=== PATIENT | male | born 1950 | race Caucasian/White ===

== ENCOUNTER 2016-11-02 22:28 | Observation (INO) ==
[2016-11-02] MEDS ORDERED: THIAMINE IVP STA (22:57)
[2016-11-02 23:22] LABS: BASOPHILS # (AUTO) 0.1 K/uL (0-0.2); BASOPHILS % (AUTO) 1.1 % (0.0-3.0); EOSINOPHILS # (AUTO) 0.3 K/ul (0.0-0.7); EOSINOPHILS % (AUTO) 5.3 % (0.0-7.0); HEMATOCRIT 37.2 % (42.0-52.0); HEMOGLOBIN 13.3 g/dl (14.0-18.0); IMMATURE GRANULOCYTE % (AUTO) 1.3 % (0.0-5.0); LYMPHOCYTES % (AUTO) 54.9 (10.0-50.0); MEAN CORPUSCULAR HEMOGLOBIN 35.8 pg (27.0-31.0); MEAN CORPUSCULAR HGB CONC 35.8 (31.8-35.4); MEAN CORPUSCULAR VOLUME 100.3 fl (80.0-94.0); MONOCYTES # (AUTO) 0.6 K/uL (0.4-2.0); MONOCYTES % (AUTO) 11.8 (0-10); NEUTROPHILS # (AUTO) 1.4 K/ul (2.0-6.9); NEUTROPHILS % (AUTO) 25.6; PLATELET COUNT 167 10^3/uL (140-440); RED BLOOD COUNT 3.71 10^6/ul (4.70-6.10); WHITE BLOOD COUNT 5.43 K/ul (4.2-10.2)
--- NOTE | 2016-11-02 23:31 | CT ---
EXAM: CT head without contrast 11/02/2016. Sagittal and coronal reformatted images obtained HISTORY: Fall COMPARISON: 05/27/2016 FINDINGS: There is no evidence of intracranial hemorrhage. The midline is maintained. There is no hydrocephalus. Atrophy and small vessel ischemic change. No cerebellar tonsillar ectopia. Evaluat ion of the calvarium shows no fracture. The mastoid air cells are normally pneumatized. IMPRESSION: No acute intracranial abnormality.
--- NOTE | 2016-11-02 23:36 | CT ---
EXAM: CT cervical spine without intravenous contrast 11/02/2016. Sagittal and coronal reformatted images obtained HISTORY: Fall COMPARISON: 05/27/2016 FINDINGS: Normal anatomic alignment is maintained. Vertebral bodies appear intact without fracture . The facet joints align normally. The prevertebral soft tissues are within normal limits. Multilevel severe chronic degenerative disc disease. Chronic hypertrophic facet arthropathy. Multi level spinal and neural foraminal stenosis. IMPRESSION: Chronic degenerative findings of the cervical spine. There is no acute post traumatic osseous abnormality
--- NOTE | 2016-11-02 23:38 | CT ---
Exam: CT of the chest without contrast History: Trauma and pain FINDINGS: The lung windows show no pulmonary parenchymal abnormalities. Atherosclerotic calcificat ion of the aorta without aneurysm. No acute findings of the mediastinum. No acute findings of the chest wall soft tissues or bony thorax. Prior healed right anterior rib fractures. No acute findin gs of the upper abdomen. Impression: 1. No acute findings of the chest
[2016-11-02 23:42] LABS: ALBUMIN 3.5 g/dL (3.4-5.0); ALBUMIN/GLOBULIN RATIO 1.3; ANION GAP 14.5; BILIRUBIN,TOTAL 0.33 mg/dL (0.00-1.20); BUN/CREATININE RATIO 7.24; CALCIUM 8.6 mg/dL (8.2-10.2); CREATININE 0.69 mg/dL (0.60-1.10); POTASSIUM 3.5 mmol/L (3.5-5.1); TOTAL PROTEIN 6.2 g/dL (5.8-8.1)
--- NOTE | 2016-11-02 23:42 | CT ---
EXAM: CT pelvis without intravenous contrast 11/02/2016. Sagittal and coronal reformatted images o btained HISTORY: Fall COMPARISON: 05/27/2016 FINDINGS: No gross soft tissue abnormality identified. Chronic degenerative disc disease of the lo wer lumbar spine. Chronic degenerative changes of the sacroiliac joints, pubic symphysis and hips. No acute fracture or subluxation identified at any level. IMPRESSION: No acute post traumatic osseous abnormality.
[2016-11-02 23:51] LABS: BILIRUBIN,URINE Negative (NEGATIVE); KETONES,URINE Negative (NEGATIVE); LEUKOCYTE ESTERASE ,URINE Negative (NEGATIVE); NITRITE,URINE Negative (NEGATIVE); PH,URINE 5.5 (5-9); PROTEIN,URINE Negative (NEGATIVE); URINE, BLOOD Trace-intact (NEGATIVE)
[2016-11-02 23:59] LABS: ADD URINE MICROSCOPIC YES
[2016-11-03] LABS: COCAIN SCREEN,URINE NEGATIVE (NEGATIVE)
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
[2016-11-03 03:08] VITALS: BMI 18.1
[2016-11-03] MEDS: THIAMINE IV SCH ×3 (03:15→20:38)
[2016-11-03] MEDS: [UNRECOGNIZED DRUG - OTHER] IV SCH ×3 (03:15→20:38)
[2016-11-03] MEDS: INFUVITE ADULT IV SCH ×3 (03:15→20:38)
[2016-11-03] MEDS: FOLIC ACID IV SCH ×3 (03:15→20:38)
[2016-11-03] MEDS ORDERED: INFUVITE ADULT IV ONE (03:52)
[2016-11-03 05:33] LABS: BASOPHILS # (AUTO) 0.1 K/uL (0-0.2); EOSINOPHILS # (AUTO) 0.3 K/ul (0.0-0.7); EOSINOPHILS % (AUTO) 5.1 % (0.0-7.0); HEMATOCRIT 36.1 % (42.0-52.0); IMMATURE GRANULOCYTE % (AUTO) 1.4 % (0.0-5.0); LYMPHOCYTES # (AUTO) 2.6 K/uL (0.60-3.4); LYMPHOCYTES % (AUTO) 50.6 (10.0-50.0); MEAN CORPUSCULAR HEMOGLOBIN 36.1 pg (27.0-31.0); MEAN CORPUSCULAR VOLUME 100.3 fl (80.0-94.0); MONOCYTES # (AUTO) 0.6 K/uL (0.4-2.0); MONOCYTES % (AUTO) 12.1 (0-10); NEUTROPHILS # (AUTO) 1.5 K/ul (2.0-6.9); NEUTROPHILS % (AUTO) 29.8; PLATELET COUNT 161 10^3/uL (140-440); WHITE BLOOD COUNT 5.14 K/ul (4.2-10.2)
[2016-11-03 05:51] LABS: ALBUMIN 3.4 g/dL (3.4-5.0); ALBUMIN/GLOBULIN RATIO 1.31; ANION GAP 16.7; BILIRUBIN,TOTAL 0.39 mg/dL (0.00-1.20); BUN/CREATININE RATIO 8.57; CALCIUM 8.8 mg/dL (8.2-10.2); CREATININE 0.7 mg/dL (0.60-1.10); POTASSIUM 3.7 mmol/L (3.5-5.1)
[2016-11-03] MEDS: XANAX PO SCH ×3 (08:55→20:45)
[2016-11-03] MEDS: LEXAPRO PO SCH (08:55)
[2016-11-03] MEDS ORDERED: DOXAZOSIN MESYLATE 4 MG PO SCH (09:00)
[2016-11-03] MEDS ORDERED: BENICAR PO SCH (09:00)
[2016-11-03] MEDS ORDERED: CARDURA PO SCH (09:00)
[2016-11-03] MEDS ORDERED: CRESTOR PO SCH (09:00)
[2016-11-03] MEDS ORDERED: NON-FORMULARY MEDICATION (Rosuvastatin Calcium [Crestor] 5 MG) PO SCH ×22 (09:00)
[2016-11-03] MEDS ORDERED: ALPRAZOLAM 0.25 MG PO SCH (09:00)
[2016-11-03] MEDS: THIAMINE IVP SCH (09:38)
[2016-11-03] MEDS: ATIVAN IVP PRN (20:45)
[2016-11-04] MEDS: THIAMINE IV SCH ×2 (04:46→17:35)
[2016-11-04] MEDS: [UNRECOGNIZED DRUG - OTHER] IV SCH ×2 (04:46→17:35)
[2016-11-04] MEDS: INFUVITE ADULT IV SCH ×2 (04:46→17:35)
[2016-11-04] MEDS: FOLIC ACID IV SCH ×2 (04:46→17:35)
[2016-11-04 05:26] LABS: BASOPHILS % (AUTO) 0.7 % (0.0-3.0); EOSINOPHILS # (AUTO) 0.2 K/ul (0.0-0.7); EOSINOPHILS % (AUTO) 2.9 % (0.0-7.0); HEMATOCRIT 32.7 % (42.0-52.0); HEMOGLOBIN 11.7 g/dl (14.0-18.0); IMMATURE GRANULOCYTE % (AUTO) 0.5 % (0.0-5.0); LYMPHOCYTES # (AUTO) 2.4 K/uL (0.60-3.4); LYMPHOCYTES % (AUTO) 40.9 (10.0-50.0); MEAN CORPUSCULAR HEMOGLOBIN 36.4 pg (27.0-31.0); MEAN CORPUSCULAR HGB CONC 35.8 (31.8-35.4); MEAN CORPUSCULAR VOLUME 101.9 fl (80.0-94.0); MONOCYTES # (AUTO) 0.9 K/uL (0.4-2.0); MONOCYTES % (AUTO) 15.3 (0-10); NEUTROPHILS # (AUTO) 2.3 K/ul (2.0-6.9); NEUTROPHILS % (AUTO) 39.7; PLATELET COUNT 138 10^3/uL (140-440); RED BLOOD COUNT 3.21 10^6/ul (4.70-6.10); WHITE BLOOD COUNT 5.77 K/ul (4.2-10.2)
[2016-11-04 05:38] LABS: PROTHROMBIN TIME 9.9 SEC (9.3-11.0)
[2016-11-04 05:45] LABS: ALBUMIN 3.2 g/dL (3.4-5.0); ALBUMIN/GLOBULIN RATIO 1.28; ANION GAP 12.9; BILIRUBIN,TOTAL 0.35 mg/dL (0.00-1.20); BUN/CREATININE RATIO 10.16; CALCIUM 8.8 mg/dL (8.2-10.2); CREATININE 0.59 mg/dL (0.60-1.10); POTASSIUM 3.9 mmol/L (3.5-5.1); TOTAL PROTEIN 5.7 g/dL (5.8-8.1)
[2016-11-04] MEDS: THIAMINE IVP SCH (10:29)
[2016-11-04] MEDS: ATIVAN IVP PRN ×3 (10:31→18:59)
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
--- NOTE | 2016-11-04 12:22 | US ---
EXAM: Ultrasound abdomen complete. HISTORY: Alcoholism COMPARISON: CT 05/27/2016 TECHNIQUE: Abdominal, real time with image documentation: Complete. FINDINGS: Liver: Normal. No intrahepatic biliary dilatation. Portal venous flow is normal direction. Gallbladder: Single focus of ring down artifact along the anterior wall. No wall thickening or shadowing stones identified. Common bile duct: 0.3 cm. Pancreas: Visualized portions are unremarkable. Spleen: Normal, length 8.4 cm. Right kidney: 11.7 cm length. No hydronephrosis. Left kidney: 8.8 cm in length. No hydronephrosis. Aorta: Visualized portions are normal in caliber. IVC: Visualized portions are normal in caliber. IMPRESSION: 1. No acute sonographic abnormality of the abdomen. 2. Small focus of ring down artifact along the anterior gallbladder wall consistent with adenomyoma tosis.
--- NOTE | 2016-11-04 13:18 | PCM.PROG ---
Attending Provider: ATTENDING PROVIDER: Dr. JEFERSON LUCIO DATE OF SERVICE: 11/04/16 SUBJECTIVE: This 66 year old WHITE/ M was hospitalized 11/03/16. The patient was admitted with alcohol intoxication; no Dt's. He is doing well today. His appetite has improved. He is talking and joking. The patient agrees that he needs to get some help. He follows with [facility] in [place]. REVIEW OF SYSTEMS: CONSTITUTIONAL: No night sweats. No fatigue, malaise, lethargy. No fever or chills. HEENT: Eyes: No visual changes. No eye pain. No eye discharge. ENT: No runny nose. No epistaxis. No sinus pain. No odynophagia. No congestion. RESPIRATORY: No cough, no congestion. No hemoptysis. CARDIOVASCULAR: No angina symptoms. No CHF symptoms. No atypical chest pain for CAD. No palpitations. No shortness of breath. GASTROINTESTINAL: No abdominal pain. No nausea or vomiting. No diarrhea or constipation. No hematemesis. No hematochezia. GENITOURINARY: No urgency. No frequency. No dysuria. No hematuria. No obstructive symptoms. No discharge. No pain. No significant abnormal bleeding. MUSCULOSKELETAL: No musculoskeletal pain; no joint swelling. NEUROLOGICAL: Awake, alert, oriented to time, place and person. No headache. No neck pain. No syncope. No seizures. No dizziness. No tremors. PSYCHIATRIC: Not anxious. No depression. No suicidal thoughts. No homicidal thoughts. SKIN: No rash. No lesions. No wounds. ENDOCRINE: No unexplained weight loss. No weight gain. HEMATOLOGIC/LYMPHATIC: No anemia. No purpura. No petechiae. No prolonged or excessive bleeding. No palpable lymph nodes. PHYSICAL EXAMINATION: GENERAL: The patient is awake, alert and oriented, sitting in bed in no distress. VITAL SIGNS: Temperature 98.6 F, Pulse 76, Respiratory Rate 16, BP 150/84, Pulse Ox 97% HEENT: Head normocephalic, atraumatic. Eyes: Extraocular muscles are intact. Pupils are equal, round and reactive to light and accommodation. Ears: No lesions. Nose appeared normal. Throat: No exudate or erythema. NECK: Supple. No JVD, no carotid bruit. No lymphadenopathy or thyromegaly. LUNGS: Clear to auscultation. Percussion note normal. Chest symmetrical. HEART: S1, S2, no S3. No murmurs. No cyanosis or clubbing. No ascites. Pulses: Dorsalis pedis and posterior tibial pulses +1 to +2 both sides. ABDOMEN: Soft. Non-tender. Bowel sounds active. No CVA tenderness. No mass felt. EXTREMITIES: No edema. Full range of motion of all extremities, equal. NEUROLOGIC: No focal deficit. Cranial nerves II through XII are grossly intact. No headache, no double vision or headache. SKIN: Not dry. Intact. Turgor-normal. LYMPHATIC: No palpable lymph nodes/no lymphedema. MUSCULOSKELETAL: Normal joints with no swelling. Muscle tone is normal. LAB REVIEW: 11/04/16 05:05 11/04/16 05:05 11/04/16 05:05: WBC 5.77, RBC 3.21 L, Hgb 11.7 L, Hct 32.7 L, MCV 101.9 H, MCH 36.4 H, MCHC 35.8 H, RDW Coeff of Josy 11.9, Plt Count 138 L, Immature Gran % ( Auto) 0.5, Neut % (Auto) 39.7, Lymph % (Auto) 40.9, Miller % (Auto) 15.3 H, Eos % (Auto) 2.9, Baso % (Auto) 0.7, Immature Gran # (Auto) 0.0, Neut # 2.3, Lymph # 2.4, Miller # 0.9, Eos # 0.2, Baso # 0.0, PT 9.9, INR 0.96, Sodium 137, Potassium 3.9, Chloride 101, Carbon Dioxide 27, Anion Gap 12.9, BUN 6 L, Creatinine 0.59 L , Estimated GFR (MDRD) 138.00, BUN/Creatinine Ratio 10.16, Glucose 95, Calcium 8.8, Total Bilirubin 0.35, AST 26, ALT 12, Alkaline Phosphatase 58, Total Protein 5.7 L, Albumin 3.2 L, Globulin 2.5, Albumin/Globulin Ratio 1.28 11/03/16 13:35: Ammonia 21 11/03/16 13:30: APTT 23.2 L ASSESSMENT: 1. Admitted with alcohol intoxication. 2. Alcohol abuse. 3. Mild depression. 4. History of hypertension. 5. Anemia. 6. Underweight with BMI of 18. PLAN: 1. Ultrasound of liver 2. MRI of brain 3. Ammonia level pending. 4. INR - normal. Plan and coordination of the patient's care discussed in the presence of Shipping Lead Person and nurse. EDUCATION: Again, proper nutrition discussed. Alcohol counseling done for alcohol abuse. The patient is still thinking of joining rehab but hasn't made up mind. CONDITION: Stable SCRIBED BY: LIZZY DING Dogger scribed while in presence of service performed by Dr. JEFERSON LUCIO on 11/04/16 ([id number])
[2016-11-04] MEDS: XANAX PO SCH ×4 (14:28→20:09)
[2016-11-04] MEDS: LEXAPRO PO SCH (14:28)
--- NOTE | 2016-11-04 14:53 | CT ---
EXAM: CT head with contrast HISTORY: Confusion with history of prostate cancer. COMPARISON: CT head 11/02/2016, 05/27/2016 and previous MRI brain 08/25/2007 FINDINGS: The arteries at the skull base are opacified normally, subtle findings may not be identifi ed on CT head with contrast as this is not an angiographic study. The right posterior cerebral raiza ry is origin. The vertebral arteries and basilar artery are normal. There is no abnormal con trast enhancing lesion. There is no abnormal extra-axial fluid collection or mass. There is no midl ine shift identified. Ventricles, cisterns and sulci are unchanged. Evans-white matter differentiat ion is maintained. The osseous structures are unremarkable. IMPRESSION: No acute intracranial abnormality or contrast enhancing lesion.
[2016-11-04 18:35] VITALS: BP 162/87; TEMP 98
--- NOTE | 2016-11-07 13:32 | AMA ---
DATE OF SERVICE: 11/04/16 THE PATIENT SIGNED OUT ON MEDICAL ADVISE. FINAL DIAGNOSIS: 1. Alcohol intoxication 2. Depression 3. History of Hypertension 4. History of syncope episode, related to dwayne arrhythmias in the past 5. History of alcohol abuse HOSPITAL COURSE: Blake Summers was hospitalized with alcohol intoxication. The patient was treated in the hospital with IV Thiamine, IV fluids. His appetite improved within several hours of being in the hospital. He never had vomiting. Initially he had some tremors but never had DT's. The patient was up and about reading newspaper and acting normally. He underwent CT scan of the head which was reported as normal. His ultrasound of the liver and spleen were normal. His ammonia level was normal. His liver profile was also normal. The patient has lost nearly 25 pounds in past 6 months and that is from him being alone living by himself along with alcohol use. The patient has good family support from the sister and the daughter. Along with sister and daughter, myself and along with nursing staff clearing indicated to him the best thing would be for him is to give up alcohol completely and consider alcoholic rehab center. The patient had not made up his mind while he was in the hospital. Nutrition and diet was discussed with him in detail. The patient doesn't have any suicidal or homicidal tendency. He indicated that he had a lot of things to live for and to improve his health. He enjoys taking care of grandkids and helping his daughter. The patient was also advised to join the exercise program which may help him a lot. The patient signed out again medical advise on 11/04/16. KEELY
== END 2016-11-04 20:30 | disposition left against medical advice (07) ==
LOC: ED 22:28 → SCU 11-03 00:15 → INTOOBSV 11-03 00:15
PROVIDERS: ADMIT Internal Medicine; ATTEND Internal Medicine
DX: F10.129 Alcohol abuse with intoxication, unspecified (principal); Y90.8 Blood alcohol level of 240 mg/100 ml or more; F32.9 Major depressive disorder, single episode, unspecified; I10 Essential (primary) hypertension; G93.40 Encephalopathy, unspecified; D64.9 Anemia, unspecified; D13.5 Benign neoplasm of extrahepatic bile ducts; R63.6 Underweight; R25.1 Tremor, unspecified; Z68.1 Body mass index [BMI] 19.9 or less, adult; Z86.79 Personal history of other diseases of the circulatory system; W19.XXXA Unspecified fall, initial encounter; Y92.9 Unspecified place or not applicable; Z91.14 Patient's other noncompliance with medication regimen; Z79.899 Other long term (current) drug therapy
CPT/HCPCS: 36415; 80053; 80306; 80307; 81001; 82140; 85025; 85610; 85730; 87081; 93005; 93010; 96361; 96374; 96375; 96376; 97802; 99284

== ENCOUNTER 2016-11-05 09:42 | Outpatient (CLI) ==
[2016-11-05 10:00] VITALS: BMI 17.8
== END 2016-11-05 09:43 | disposition home or self-care (01) ==
LOC: AMBL 09:42
PROVIDERS: ATTEND Emergency Medicine
DX: F10.129 Alcohol abuse with intoxication, unspecified (principal)

== ENCOUNTER 2016-11-05 09:52 | Emergency (ER) ==
[2016-11-05 10:00] VITALS: BP 132/76; TEMP 97.9; BMI 17.8
--- NOTE | 2016-11-05 10:07 | ED.PDOC ---
General ED Provider: Dr. DIMITRI ELIZONDO JR Chief Complaint: Alcohol Intoxication Stated Complaint: pt was discharged yesterday. unknown person called 911 this morning, ems found pt on the floor at the top of the stairs. pt thinks he drank 6 beer. etoh smell is strong. thinks he drank them last night but not sure. [ End ]97.9 88 18 98% 132/76 Time Seen by Physician: 10:06 Mode of Arrival: Ambulance Information Source: Patient, EMT Exam Limitations: No limitations Primary Care Provider: JEFERSON LUCIO Nursing and Triage Documentation Reviewed and Agree: No Review of Systems - Review Of Systems Constitutional: Reports: Malaise, Weakness Eyes: Reports: No symptoms Ears, Nose, Mouth, Throat: Reports: No symptoms Respiratory: Reports: No symptoms Cardiac: Reports: No symptoms GI: Reports: No symptoms : Reports: No symptoms Musculoskeletal: Reports: No symptoms Skin: Reports: No symptoms Neurological: Reports: Anxiety, Depressed, Emotional problems, Cognitive dysfunction, Weakness Endocrine: Reports: No symptoms Hematologic/Lymphatic: Reports: No symptoms All Other Systems: Other Past Medical History - Past Medical History Previously Healthy: No Endocrine: Reports: None Cardiovascular: Reports: Hypertension Respiratory: Reports: None Hematological: Reports: None Gastrointestinal: Reports: None Genitourinary: Reports: None Neuro/Psych: Reports: Seizure, Depression Musculoskeletal: Reports: None Cancer: Reports: Other Other Pertinent Past Medical History: alcohol intoxication - Surgical History General Surgical History: Reports: None, Appendectomy, Other (depressed skull fracture right frontal lobe 50 years ago.) - Family History Family History: Reports: None - Social History Smoking Status: Current every day smoker Hx Substance Use: No Alcohol Screening: Heavy Physical Exam - Physical Exam Appearance: Well-appearing, Thin Pain Distress: Mild Eyes: JACQUELIN, EOMI, Conjunctiva clear ENT: Ears normal, Nose normal, Oropharynx normal Neck: Supple Respiratory: Airway patent, Breath sounds clear, Breath sounds equal, Respirations nonlabored Cardiovascular: RRR, Pulses normal, No rub, No murmur GI/: Soft, Nontender, No masses, Bowel sounds normal, No Organomegaly Musculoskeletal: Normal strength, ROM intact, No edema, No calf tenderness Skin: Warm, Dry, Normal color Neurological: Sensation intact, Motor intact, Alert, Disoriented Psychiatric: Affect appropriate, Mood appropriate Interpretation - Radiology Interpretation Radiology Interpretation By: Radiologist Radiology Results: Negative Exam Interpreted: CT Scan (abd pelvis) Re-Evaluation - Re-Evaluation Time of Re-Evaluation: 12:27 Status: Improved (discussed dischearhe) - Re-Evaluation Time of Re-Evaluation: 13:10 (sister agrees to keep for 2-3days patietn request xanax- told use librium same family) Status: Improved Critical Care Note - Critical Care Note Total Time (mins): 0 Course - Course Hematology/Chemistry: 11/05/16 10:15 11/05/16 10:15 Orders, Labs, Meds: Lab Review 11/05/16 11/05/16 10:10 10:15 WBC 6.70 RBC 3.51 L Hgb 12.8 L Hct 35.4 L MCV 100.9 H MCH 36.5 H MCHC 36.2 H RDW Coeff of Josy 12.0 Plt Count 173 Immature Gran % (Auto) 0.7 Neut % (Auto) 36.2 Lymph % (Auto) 44.8 [place] % (Auto) 14.0 H Eos % (Auto) 3.3 Baso % (Auto) 1.0 Immature Gran # (Auto) 0.1 Neut # 2.4 Lymph # 3.0 [place] # 0.9 Eos # 0.2 Baso # 0.1 Sodium 136 Potassium 4.0 Chloride 96 L Carbon Dioxide 29 Anion Gap 15.0 BUN 4 L Creatinine 0.68 Estimated GFR (MDRD) 117.00 BUN/Creatinine Ratio 5.88 Glucose 87 Calcium 9.0 Total Bilirubin 0.24 AST 26 ALT 14 Alkaline Phosphatase 58 Total Protein 6.3 Albumin 3.6 Globulin 2.7 Albumin/Globulin Ratio 1.33 TSH 1.798 Urine Color Yellow Urine Clarity Clear Urine pH 5.5 Ur Specific [place] <1.005 Urine Protein Negative Urine Glucose (UA) Negative Urine Ketones Negative Urine Blood Negative Urine Nitrite Negative Urine Bilirubin Negative Urine Urobilinogen 0.2 Ur Leukocyte Esterase Negative Salicylate Level mg/dL < 5.0 Urine Opiates Screen Negative Ur Oxycodone Screen Negative Urine Methadone Screen Negative Ur Propoxyphene Screen Negative Acetaminophen < 3 L Ur Barbiturates Screen Negative U Tricyclic Antidepress Negative Ur Phencyclidine Scrn Negative Ur Amphetamine Screen Negative U Methamphetamines Scrn Negative U Benzodiazepines Scrn Negative Urine Cocaine Screen Negative U Cannabinoids Screen Negative Plasma/Serum Alcohol 233.0 H Orders Category Date Time Status EKG-(ED ONLY) Stat CARDIO 11/05/16 10:10 Completed ED COSMETOLOGY INSTRUCTOR APPLIED ONCE EMERGENCY 11/05/16 10:10 Active IV [ED IV/MEDIPORT/POWERPORT] .ONCE EMERGENCY 11/05/16 10:16 Active ACETAMINOPHEN Stat LAB 11/05/16 10:15 Completed ALCOHOL LEVEL [BLOOD ALCOHOL] Stat LAB 11/05/16 10:15 Completed CBC W/ AUTO DIFF Stat LAB 11/05/16 10:15 Completed COMPREHENSIVE METABOLIC PANEL Stat LAB 11/05/16 10:15 Completed DRUG SCREEN, URINE, RAPID Stat LAB 11/05/16 10:15 Completed SALICYLATE Stat LAB 11/05/16 10:15 Completed THYROID STIMULATING HORMONE Stat LAB 11/05/16 10:15 Completed URINALYSIS C & S IF INDICATED Stat LAB 11/05/16 10:10 Completed 0.9 % Sodium Chloride [Saline Flush] MEDS 11/05/16 10:16 Discontinued 1 syr IVF PRN PRN Sodium Chloride 0.9% [Sodium Chloride] 1,000 ml MEDS 11/05/16 10:16 Discontinued IV BOLUS Vitamin B-1 Inj [Thiamine] MEDS 11/05/16 10:29 Discontinued 100 mg IVP ONCE STA CT ABDOMEN/PELVIS WO CONTRAST Stat RADS 11/05/16 11:03 Completed Medications Discontinued Medications Generic Name Dose Route Start Last Admin Trade Name Freq PRN Reason Stop Dose Admin Sodium Chloride 1,000 mls @ 1,000 mls/hr 11/05/16 10:16 11/05/16 10:42 Sodium Chloride IV 11/05/16 11:15 1,000 mls/hr BOLUS STA Administration Sodium Chloride 1 syr 11/05/16 10:16 11/05/16 10:42 Saline Flush IVF 1 syr PRN PRN Administration To flush IV Thiamine HCl 100 mg 11/05/16 10:29 11/05/16 10:47 Thiamine IVP 11/05/16 10:30 100 mg ONCE STA Administration Vital Signs: Temp Pulse Resp BP Pulse Ox 11/05/16 09:52 97.9 F 88 18 132/76 98 Departure - Departure Time of Disposition: 12:53 Disposition: HOME SELF-CARE Discharge Problem: Alcohol intoxication Instructions: Abuse of Alcohol (ED), Alcohol Use Disorder (ED) Condition: Stable Pt referred to PMD for follow-up: Yes Additional Instructions: LIBRIUM FOR AGITATION SHAKES OR MENTAL CHANGES RETURN IF CONVULSIONS OR UNABLE TO CONTROL SYMPTOMS STOP DRINKING ALCOHOL OBSERVE FOR 24 HOURSFOR SAFETY NO ALCOHOL IN HOME CALL AA FOLLOW UP WITH AA IS ONE OF THE ONLY PROVEN BENEFICIAL TREATMENTS Prescriptions: Chlordiazepoxide HCl [Librium] 25 mg PO QID PRN #30 capsule PRN Reason: Alcohol Withdrawal Doxazosin Mesylate [Cardura Xl] 4 mg PO DAILY #30 tab.er.24 Allergies/Adverse Reactions: Allergies [id number] inhibitor Adverse Reaction (Verified 11/05/16 10:01) cod liver oil Adverse Reaction (Verified 11/05/16 10:01) metoprolol succinate [From Toprol XL] Adverse Reaction (Verified 11/05/16 10:01) Penicillins Adverse Reaction (Verified 11/05/16 10:01) alpha blockers Adverse Reaction (Uncoded 11/02/16 22:46) beta blockers Adverse Reaction (Uncoded 11/02/16 22:46) Home Medications: Ambulatory Orders Alprazolam [Niravam] 0.25 mg PO TID 04/06/13 Doxazosin Mesylate 4 mg PO DAILY 04/06/13 Escitalopram Oxalate 10 mg PO DAILY 04/06/13 Olmesartan Medoxomil [Benicar] 20 mg PO BID 04/06/13 Rosuvastatin Calcium [Crestor] 5 mg PO DAILY 04/06/13 Chlordiazepoxide HCl [Librium] 25 mg PO QID PRN #30 capsule 11/05/16 Doxazosin Mesylate [Cardura Xl] 4 mg PO DAILY #30 tab.er.24 11/05/16
[2016-11-05] MEDS ORDERED: SODIUM CHLORIDE 1,000 ML IV STA (10:16)
[2016-11-05 10:24] LABS: BASOPHILS # (AUTO) 0.1 K/uL (0-0.2); EOSINOPHILS # (AUTO) 0.2 K/ul (0.0-0.7); EOSINOPHILS % (AUTO) 3.3 % (0.0-7.0); HEMATOCRIT 35.4 % (42.0-52.0); HEMOGLOBIN 12.8 g/dl (14.0-18.0); IMMATURE GRANULOCYTE % (AUTO) 0.7 % (0.0-5.0); LYMPHOCYTES % (AUTO) 44.8 (10.0-50.0); MEAN CORPUSCULAR HEMOGLOBIN 36.5 pg (27.0-31.0); MEAN CORPUSCULAR HGB CONC 36.2 (31.8-35.4); MEAN CORPUSCULAR VOLUME 100.9 fl (80.0-94.0); MONOCYTES # (AUTO) 0.9 K/uL (0.4-2.0); NEUTROPHILS # (AUTO) 2.4 K/ul (2.0-6.9); NEUTROPHILS % (AUTO) 36.2; PLATELET COUNT 173 10^3/uL (140-440); RED BLOOD COUNT 3.51 10^6/ul (4.70-6.10)
[2016-11-05] MEDS ORDERED: THIAMINE IVP STA (10:29)
[2016-11-05 10:46] LABS: KETONES,URINE NEGATIVE (NEGATIVE); NITRITE,URINE NEGATIVE (NEGATIVE); PH,URINE 5.5 (5-9); PROTEIN,URINE NEGATIVE (NEGATIVE); URINE, BLOOD NEGATIVE (NEGATIVE)
[2016-11-05 10:47] LABS: ADD URINE MICROSCOPIC NO; BILIRUBIN,URINE NEGATIVE (NEGATIVE); LEUKOCYTE ESTERASE ,URINE NEGATIVE (NEGATIVE)
[2016-11-05 11:07] LABS: ACETAMINOPHEN < 3 ug/ml (10-30); ALANINE AMINOTRANSFERASE 14 U/L (12-78); ALBUMIN 3.6 g/dL (3.4-5.0); ALBUMIN/GLOBULIN RATIO 1.33; ALKALINE PHOSPHATASE 58 U/L (56-119); ASPARTATE AMINO TRANSFERASE 26 U/L (15-37); BILIRUBIN,TOTAL 0.24 mg/dL (0.00-1.20); BLOOD UREA NITROGEN 4 mg/dL (7-18); BUN/CREATININE RATIO 5.88; CARBON DIOXIDE 29 mmol/L (23-31); CHLORIDE 96 mmol/L (98-107); CREATININE 0.68 mg/dL (0.60-1.10); GLUCOSE 87 mg/dL (82-115); SALICYLATE < 5.0 mg/dL (2.8-20.0); SODIUM 136 mmol/L (136-145); TOTAL PROTEIN 6.3 g/dL (5.8-8.1)
--- NOTE | 2016-11-05 11:56 | CT ---
EXAM: CT Abdomen without contrast. CT Pelvis without contrast. HISTORY: Generalized abdominal pain. COMPARISON: Ultrasound [address] 11/02/2016. CT 05/27/2016. TECHNIQUE: Multiple axial images of the abdomen and pelvis were obtained without intravenous contra st. Images were reformatted in the coronal plane. FINDINGS: Please note that evaluation of the abdominal and pelvic structures is limited due to lack of intravenous contrast. Lung bases are clear. Degenerative changes present in the spine. Gallbladder is contracted. The liver, pancreas, spleen, adrenal glands, and kidneys demonstrate nor mal contour. No calcified renal stones or hydronephrosis detected. The bowel is normal in course and caliber without evidence for obstruction or inflammatory process. The appendix is not seen. A few diverticula are present in the colon. Urinary bladder is unremarka ble. No localized prostate abnormality detected. No free fluid or free air seen. Atherosclerotic calcifications are present. There is a small fat-containing umbilical hernia IMPRESSION: No acute abnormality within the abdomen or pelvis.
[2016-11-05 12:05] LABS: COCAIN SCREEN,URINE NEGATIVE (NEGATIVE)
== END 2016-11-05 13:35 | disposition home or self-care (01) ==
LOC: ED 09:52
DX: F10.129 Alcohol abuse with intoxication, unspecified (principal); F17.210 Nicotine dependence, cigarettes, uncomplicated; Z79.899 Other long term (current) drug therapy
CPT/HCPCS: 36415; 80053; 80306; 80307; 81001; 84443; 85025; 93005; 93010; 96361; 96374; 99283

== ENCOUNTER 2017-02-10 16:19 | Emergency (ER) ==
[2017-02-10 16:24] VITALS: BP 178/94; TEMP 99.5; BMI 20.5
--- NOTE | 2017-02-10 16:36 | ED.PDOC ---
General ED Provider: Dr. DIMITRI ELIZONDO JR Chief Complaint: Dizziness Stated Complaint: HAVING LUNCH WITH SISTER. PATIENT C/O BEING DIZZY AND THAN PASSED OUT. [ End ]1400 TODAY 99.5 69 20 96% 178/94 135 POUNDS, NOTHING TO DRINK SINCE LAST ER VISIT OCTOBER; 20 to 30 episodes lightheadedness a day, not drinking not smoking not using drugs per patient, no breakfast (coffee) as usual large lunch as usual, awake quickly did not fall from seated position, recall pre and post syncopal events. Time Seen by Physician: 16:35 Mode of Arrival: Walk-In Information Source: Patient, Family Exam Limitations: No limitations Primary Care Provider: JEFERSON LUCIO Nursing and Triage Documentation Reviewed and Agree: No Review of Systems - Review Of Systems Constitutional: Reports: Malaise, Weakness Eyes: Reports: No symptoms Ears, Nose, Mouth, Throat: Reports: No symptoms Respiratory: Reports: No symptoms Cardiac: Reports: No symptoms GI: Reports: No symptoms : Reports: No symptoms Musculoskeletal: Reports: No symptoms Skin: Reports: No symptoms Neurological: Reports: Cognitive dysfunction (unsure if shrt term memory loss unsure if EEG changes from head injury), Weakness (light headed 20 to 30 times a day) Endocrine: Reports: No symptoms Hematologic/Lymphatic: Reports: No symptoms All Other Systems: Other Past Medical History - Past Medical History Previously Healthy: No Endocrine: Reports: None Cardiovascular: Reports: Hypertension Respiratory: Reports: None Hematological: Reports: None Gastrointestinal: Reports: None Genitourinary: Reports: None Neuro/Psych: Reports: Seizure, Anxiety, Depression Musculoskeletal: Reports: None Cancer: Reports: Other (PROSTATE CANCER ) Other Pertinent Past Medical History: alcohol intoxicationHTN CA SZ DEPR ANX PROSTATE CANCER APPY - Surgical History General Surgical History: Reports: None, Appendectomy, Other (depressed skull fracture right frontal lobe 50 years ago.) - Family History Family History: Reports: None - Social History Smoking Status: Current every day smoker Hx Substance Use: No Alcohol Screening: None - Immunizations Tetanus Shot up to Date: Yes Physical Exam - Physical Exam Appearance: Well-appearing, Thin Eyes: JACQUELIN, EOMI, Conjunctiva clear ENT: Ears normal, Nose normal, Oropharynx normal Neck: Supple Respiratory: Airway patent, Breath sounds clear, Breath sounds equal, Respirations nonlabored Cardiovascular: RRR, Pulses normal, No rub, No murmur GI/: Soft, Nontender, No masses, Bowel sounds normal, No Organomegaly Musculoskeletal: Normal strength, ROM intact, No edema, No calf tenderness Skin: Warm, Dry, Normal color Neurological: Sensation intact, Motor intact, Reflexes intact, Cranial nerves intact, Alert, Oriented Psychiatric: Anxious Interpretation - EKG Interpretation Rate: Normal Rhythm: Sinus Ectopy: None Morris: NL ST Segment: Normal Critical Care Note - Critical Care Note Total Time (mins): 5 Course - Course Hematology/Chemistry: 02/10/17 16:45 02/10/17 16:45 Orders, Labs, Meds: Lab Review 02/10/17 16:45 WBC 6.34 RBC 3.81 L Hgb 12.7 L Hct 36.1 L MCV 94.8 H MCH 33.3 H MCHC 35.2 RDW Coeff of Josy 11.7 Plt Count 237 Immature Gran % (Auto) 0.5 Neut % (Auto) 44.2 Lymph % (Auto) 41.6 [place] % (Auto) 9.9 Eos % (Auto) 2.7 Baso % (Auto) 1.1 Immature Gran # (Auto) 0.0 Neut # 2.8 Lymph # 2.6 [place] # 0.6 Eos # 0.2 Baso # 0.1 Sodium 138 Potassium 4.0 Chloride 103 Carbon Dioxide 27 Anion Gap 12.0 BUN 11 Creatinine 0.97 Estimated GFR (MDRD) 78.00 BUN/Creatinine Ratio 11.34 Glucose 69 L Calcium 9.1 Total Bilirubin 0.52 AST 18 ALT 14 Alkaline Phosphatase 52 L Total Creatine Kinase 79 Troponin I < 0.0100 B-Natriuretic Peptide 65 Total Protein 6.7 Albumin 3.9 Globulin 2.8 Albumin/Globulin Ratio 1.39 Procalcitonin < 0.05 Orders Category Date Time Status EKG-(ED ONLY) Stat CARDIO 02/10/17 16:35 Ordered B-TYPE NATRIURETIC PEPTIDE Stat LAB 02/10/17 16:45 Completed BLOOD CULTURE Stat LAB 02/10/17 16:45 Received CBC W/ AUTO DIFF Stat LAB 02/10/17 16:45 Completed COMPREHENSIVE METABOLIC PANEL Stat LAB 02/10/17 16:45 Completed CREATINE KINASE Stat LAB 02/10/17 16:45 Completed PROCALCITONIN Stat LAB 02/10/17 16:45 Completed TROPONIN I Stat LAB 02/10/17 16:45 Completed CHEST, 1V AP ONLY Stat RADS 02/10/17 16:35 Taken Vital Signs: Temp Pulse Resp BP Pulse Ox 02/10/17 16:20 99.5 F 69 20 178/94 H 96 Departure - Departure Time of Disposition: 17:44 Disposition: HOME SELF-CARE Discharge Problem: Dizziness Instructions: Near Syncope (ED), Lightheadedness (ED) Condition: Good Pt referred to PMD for follow-up: Yes Additional Instructions: discuss neurology evaluation with PMD may need to be off alcohol for more time for symptoms to improve avoid high sugar foods(candy) but include carbohydrates with each meal keep hydrated discuss frequent dizziness with PMD Allergies/Adverse Reactions: Allergies [id number] inhibitor Adverse Reaction (Verified 11/05/16 10:01) cod liver oil Adverse Reaction (Verified 11/05/16 10:01) metoprolol succinate [From Toprol XL] Adverse Reaction (Verified 11/05/16 10:01) Penicillins Adverse Reaction (Verified 11/05/16 10:01) alpha blockers Adverse Reaction (Uncoded 11/02/16 22:46) beta blockers Adverse Reaction (Uncoded 11/02/16 22:46) Home Medications: Ambulatory Orders Alprazolam [Niravam] 0.25 mg PO TID 04/06/13 Doxazosin Mesylate 4 mg PO DAILY 04/06/13 Escitalopram Oxalate 10 mg PO DAILY 04/06/13 Olmesartan Medoxomil [Benicar] 20 mg PO BID 04/06/13 Rosuvastatin Calcium [Crestor] 5 mg PO DAILY 04/06/13 Chlordiazepoxide HCl [Librium] 25 mg PO QID PRN #30 capsule 11/05/16 Doxazosin Mesylate [Cardura Xl] 4 mg PO DAILY #30 tab.er.24 11/05/16
[2017-02-10 16:52] LABS: BASOPHILS # (AUTO) 0.1 K/uL (0-0.2); BASOPHILS % (AUTO) 1.1 % (0.0-3.0); EOSINOPHILS # (AUTO) 0.2 K/ul (0.0-0.7); EOSINOPHILS % (AUTO) 2.7 % (0.0-7.0); HEMATOCRIT 36.1 % (42.0-52.0); HEMOGLOBIN 12.7 g/dl (14.0-18.0); IMMATURE GRANULOCYTE % (AUTO) 0.5 % (0.0-5.0); LYMPHOCYTES # (AUTO) 2.6 K/uL (0.60-3.4); LYMPHOCYTES % (AUTO) 41.6 (10.0-50.0); MEAN CORPUSCULAR HEMOGLOBIN 33.3 pg (27.0-31.0); MEAN CORPUSCULAR HGB CONC 35.2 (31.8-35.4); MEAN CORPUSCULAR VOLUME 94.8 fl (80.0-94.0); MONOCYTES # (AUTO) 0.6 K/uL (0.4-2.0); MONOCYTES % (AUTO) 9.9 (0-10); NEUTROPHILS # (AUTO) 2.8 K/ul (2.0-6.9); NEUTROPHILS % (AUTO) 44.2; PLATELET COUNT 237 10^3/uL (140-440); RED BLOOD COUNT 3.81 10^6/ul (4.70-6.10); WHITE BLOOD COUNT 6.34 K/ul (4.2-10.2)
[2017-02-10 17:17] LABS: ALANINE AMINOTRANSFERASE 14 U/L (12-78); ALBUMIN 3.9 g/dL (3.4-5.0); ALBUMIN/GLOBULIN RATIO 1.39; ALKALINE PHOSPHATASE 52 U/L (56-119); ASPARTATE AMINO TRANSFERASE 18 U/L (15-37); BILIRUBIN,TOTAL 0.52 mg/dL (0.00-1.20); BLOOD UREA NITROGEN 11 mg/dL (7-18); BUN/CREATININE RATIO 11.34; CALCIUM 9.1 mg/dL (8.2-10.2); CARBON DIOXIDE 27 mmol/L (23-31); CHLORIDE 103 mmol/L (98-107); CREATINE KINASE 79 U/L; CREATININE 0.97 mg/dL (0.60-1.10); GLUCOSE 69 mg/dL (82-115); SODIUM 138 mmol/L (136-145); TOTAL PROTEIN 6.7 g/dL (5.8-8.1)
--- NOTE | 2017-02-11 07:42 | DI ---
EXAM: CHEST FRONTAL VIEW HISTORY: Chest pain. COMPARISON: 07/11/2014 FINDINGS: Heart size is within normal limits. There is mild aortic atherosclerosis. There are scat tered calcifications suggesting old granulomatous disease. No acute infiltrates are seen. There is no consolidation, visible pleural fluid or pneumothorax. Bones reveal no acute fracture. IMPRESSION: No acute cardiopulmonary process.
== END 2017-02-10 18:41 | disposition home or self-care (01) ==
LOC: ED 16:19
DX: R42 Dizziness and giddiness (principal); R55 Syncope and collapse; R53.1 Weakness; I10 Essential (primary) hypertension; Z79.899 Other long term (current) drug therapy
CPT/HCPCS: 36415; 80053; 82550; 83880; 84145; 84484; 85025; 87040; 93005; 93010; 99283

== ENCOUNTER 2017-02-17 16:33 | Outpatient (CLI) ==
--- NOTE | 2017-02-20 08:53 | HOLTER ---
PATIENT INFORMATION AND COMMENTS Indications: DIZZINESS/NEAR SYNCOPE __ Patient Medications: AMLODIPINE, LEVOTHYROXINE, ALPRAZOLAM, DOXAZOSIN __ Pre-procedure Summary: Protocol: Standard Heart Rate Started: 02/17/171652 Minimum: 30 BPM Weight: 145 LBS Ended: 02/18/171652 Maximum: 123 BPM Height: 68" Duration: 24 HRS Average: 92 BPM _ INTERPRETATIONS/OBSERVATIONS: 1. BASIC RHYTHM: SINUS RATE, 30 BPM TO 120 BPM, AVERAGE 90 BPM 2. RARE PAC'S AND PVC'S 3. FREQUENT PAUSES OF GREATER THAN 2.5 SECONDS--TOTAL OF 16 IN 24 HOURS NOTED. THE LONGEST PAUSE 3.[address]-T WAVE CHANGES FROM BASELINE 5. NO CORRELATION WITH ACTIVITY LOG PATIENT WAS CALLED AT 8:35 P.M. 02/19/17--TALKED TO PATIENT AND HE AGREED TO GO TO [facility] EMERGENCY DEPARTMENT. KEELY
== END 2017-02-17 16:34 | disposition home or self-care (01) ==
LOC: CAR 16:33
PROVIDERS: ATTEND Internal Medicine
DX: R42 Dizziness and giddiness (principal); R55 Syncope and collapse
CPT/HCPCS: 93224

== ENCOUNTER 2018-05-04 11:15 | Outpatient (CLI) ==
--- NOTE | 2018-05-04 13:21 | DI ---
Exam: Three views lumbar spine. Comparison: CT lumbar spine performed 05/27/2016. Reason for exam: Back pain. FINDINGS: No obvious vertebral body height loss is seen. There is multilevel degenerative disease i n the lumbar spine with intervertebral body disc space height loss and osteophyte formation not signi ficantly changed from previous imaging. The lumbar lordotic curve is relatively well maintained. At herosclerotic disease is seen within the aorta. Impression: 1. No acute fracture is seen in the lumbar spine. 2. Similar appearing multilevel degenerative disease with osteophyte formation and intervertebral jonah dy disc space height loss
--- NOTE | 2018-05-04 13:25 | DI ---
EXAM: Two views of the left hip. History: Left hip pain. Findings: No acute fracture or dislocation. Left hip joint space is preserved. No abnormal calcifi cations or radiopaque foreign bodies. Impression: No acute osseous abnormality
--- NOTE | 2018-05-04 13:27 | DI ---
Exam: Two views right hip. Comparison: CT abdomen pelvis performed 11/05/2016. Reason for exam: Hip pain. FINDINGS: Calcification adjacent to the inferior pubic ramus. Impression: No acute fracture or dislocation in the right hip.
== END 2018-05-04 11:16 | disposition home or self-care (01) ==
LOC: RAD 11:15
PROVIDERS: ATTEND Internal Medicine
DX: M54.9 Dorsalgia, unspecified (principal); M25.551 Pain in right hip; M25.552 Pain in left hip

== ENCOUNTER 2018-08-11 16:20 | Outpatient (CLI) ==
--- NOTE | 2018-08-12 07:40 | DI ---
EXAM: Four views of the left knee HISTORY: Pain in the left knee. COMPARISON: None FINDINGS: Medial and lateral compartments of the left knee are normal. There is no lytic or blastic lesion. The patella is normal in position and appearance. There is no displaced fracture or dislocat ion. The soft tissues are unremarkable with no effusion. IMPRESSION: No acute abnormality of the left knee.
== END 2018-08-11 16:21 | disposition home or self-care (01) ==
LOC: RAD 16:20
PROVIDERS: ATTEND Nurse Practitioner Family
DX: M25.562 Pain in left knee (principal); W19.XXXA Unspecified fall, initial encounter

== ENCOUNTER 2019-05-29 14:53 | Emergency (ER) ==
[2019-05-29 14:58] VITALS: BP 169/90; TEMP 99; BMI 24.2
[2019-05-29] MEDS ORDERED: LOPRESSOR IVP STA (16:33)
[2019-05-29] MEDS ORDERED: NITROSTAT SL STA (16:34)
--- NOTE | 2019-05-29 16:42 | ED.PDOC ---
General ED Provider: Dr. JOSY GERONIMO Chief Complaint: Chest Pain Stated Complaint: chest pain. onset 1 day ago today had no pain but wanted to be evaluated for the event Time Seen by Physician: 14:55 (nurse present at all times ) Mode of Arrival: Walk-In Information Source: Patient Exam Limitations: No limitations Primary Care Provider: JEFERSON LUCIO Nursing and Triage Documentation Reviewed and Agree: Yes Does patient meet sepsis criteria?: No System Inflammatory Response Syndrome: Not Applicable Sepsis Protocol: For patient's 13 years and over: Temp is 96.8 and below OR 101 and greater Pulse >90 BPM Resp >20/minute Acutely Altered Mental Status Are patient's symptoms suggestive of a new infection, such as: -Pneumonia -Skin, Soft Tissue -Endocarditis -UTI -Bone, Joint Infection -Implantable Device -Acute Abdominal Infection -Wound Infection -Meningitis -Blood Stream Catheter Infection -Unknown Cardiovascular Complaint Exam - Chest Pain Complaint/Exam Onset: Sudden Duration: 1 day ago episode repeated itself at 4:40 pm Symptoms Are: Still present Length of Chest Pain Episodes: 15 min pt took 6 baby asprins 1 day ago and today Initial Severity: Mild Current Severity: None (initally presently mild) Location: Reports: Midsternal Pain Radiates: Reports: Left shoulder, Left arm, Jaw Character: Reports: Tightness Aggravating: Reports: None Alleviating: Reports: Nitro, Spontaneous resolution (relsoved 1 day ago ) Related History: Reports: Other (lists beta blocler as an allergy when asked he stated it made his heart skip and he required pacemaker ) History of Healthcare-Acquired Pneumonia: Reports: No AMI/ACS Risk Factors: Reports: None TAD Risk Factors: Reports: None Pulmonary Embolism Risk Factors: Reports: None Prior Care for this Complaint: No Recent Stress Test: No Recent Echo/LV Function: No JVD Present: No Subcutaneous Emphysema Present: No Diminshed Breath Sounds: No Reproducible Chest Wall Pain: No Bilateral Pulses Present: No Unequal Pulses Noted: No If Risk Factors for AMI/ACS Consider: EKG, Cardiac Enzymes If Risk Factors for PE Consider: Chest CT with contrast Differential Diagnoses: ACS, Unstable Angina Quality Indicators For Acute GA or Cardiac Chest Pain: EKG in 10min. Review of Systems - Review Of Systems Constitutional: Reports: No symptoms Eyes: Reports: No symptoms Ears, Nose, Mouth, Throat: Reports: No symptoms Respiratory: Reports: No symptoms Cardiac: Reports: Chest pain GI: Reports: No symptoms : Reports: No symptoms Musculoskeletal: Reports: No symptoms Skin: Reports: No symptoms Neurological: Reports: No symptoms Endocrine: Reports: No symptoms Hematologic/Lymphatic: Reports: No symptoms All Other Systems: Reviewed and Negative Past Medical History - Past Medical History Previously Healthy: No Endocrine: Reports: None Cardiovascular: Reports: Hypertension Respiratory: Reports: None Hematological: Reports: None Gastrointestinal: Reports: None Genitourinary: Reports: None Neuro/Psych: Reports: Seizure, Anxiety, Depression Musculoskeletal: Reports: None Cancer: Reports: Other (PROSTATE CANCER ) Other Pertinent Past Medical History: alcohol intoxicationHTN CA SZ DEPR ANX PROSTATE CANCER APPY - Surgical History General Surgical History: Reports: None, Appendectomy, Other (depressed skull fracture right frontal lobe 50 years ago.) - Family History Family History: Reports: None - Social History Smoking Status: Former smoker Hx Substance Use: No Alcohol Screening: None Physical Exam - Physical Exam Appearance: Well-appearing, No pain distress, Well-nourished Eyes: JACQUELIN, EOMI, Conjunctiva clear ENT: Ears normal, Nose normal, Oropharynx normal Respiratory: Airway patent, Breath sounds clear, Breath sounds equal, Respirations nonlabored Cardiovascular: RRR, Pulses normal, No rub, No murmur GI/: Soft, Nontender, No masses, Bowel sounds normal, No Organomegaly Musculoskeletal: Normal strength, ROM intact, No edema, No calf tenderness Skin: Warm, Dry, Normal color Neurological: Sensation intact, Motor intact, Reflexes intact, Cranial nerves intact, Alert, Oriented Psychiatric: Affect appropriate, Mood appropriate Interpretation - Side Laster Tack Rate: Tachy Rhythm: Sinus - EKG Interpretation Rate: Tachy Rhythm: Sinus Ectopy: None [place]: NL ST Segment: Normal Rate: Normal Rhythm: Sinus (second ekg postive for ST DEPRESSION ON THE ;ATERAL CHEST WALL.) Re-Evaluation - Re-Evaluation Time of Re-Evaluation: 04:40 Status: Worse Vital Signs Stable: Yes Pain Level: 3/10 SS C/P WITH RADIATION LEFT ARM Appearance: NAD Lungs: Clear Skin: Warm and Dry Neuro: Alert and Oriented X3 CV: RRR Physician Notification - Case Discussed Physician Notified: PATRICIA GALVAN Time of Notification: 16:46 (TRANSFER ) Critical Care Note - Critical Care Note Total Time (mins): 60 Course - Course Hematology/Chemistry: 05/29/19 15:18 05/29/19 15:18 Orders, Labs, Meds: Lab Review 05/29/19 05/29/19 05/29/19 15:18 15:18 15:18 WBC 9.52 RBC 3.98 L Hgb 13.9 L Hct 39.4 L MCV 99.0 H MCH 34.9 H MCHC 35.3 RDW Coeff of Josy 12.0 Plt Count 224 Immature Gran % (Auto) 1.2 Neut % (Auto) 55.8 Lymph % (Auto) 32.4 [place] % (Auto) 7.7 Eos % (Auto) 2.1 Baso % (Auto) 0.8 Immature Gran # (Auto) 0.1 Neut # (Auto) 5.3 Lymph # (Auto) 3.1 [place] # (Auto) 0.7 Eos # (Auto) 0.2 Baso # (Auto) 0.1 PT 9.6 INR 0.98 APTT 26.9 Sodium 138.7 Potassium 3.64 Chloride 100.5 Carbon Dioxide 31.8 H Anion Gap 10.04 BUN 12.9 Creatinine 0.72 Estimated GFR (MDRD) 109.00 BUN/Creatinine Ratio 17.91 Glucose 120.3 H Calcium 9.00 Total Bilirubin 0.40 AST 38.4 ALT 22.2 Alkaline Phosphatase 72.0 Total Creatine Kinase 62.8 Troponin I 0.040 Total Protein 7.44 Albumin 4.42 Globulin 3.02 Albumin/Globulin Ratio 1.46 Orders Category Date Time Status EKG-(ED ONLY) Stat CARDIO 05/29/19 15:05 Completed EKG-(ED ONLY) Stat CARDIO 05/29/19 16:23 Ordered NPO REMINDER: IMAGING ONCE CARE 05/29/19 15:05 Completed ED IV/MEDIPORT/POWERPORT .ONCE EMERGENCY 05/29/19 15:05 Active CBC W/ AUTO DIFF Stat LAB 05/29/19 15:18 Completed COMPREHENSIVE METABOLIC PANEL Stat LAB 05/29/19 15:18 Completed CREATINE KINASE Stat LAB 05/29/19 15:18 Completed PARTIAL THROMBOPLASTIN TIME Stat LAB 05/29/19 15:18 Completed PT WITH INR Stat LAB 05/29/19 15:18 Completed TROPONIN I Stat LAB 05/29/19 15:18 Completed 0.9 % Sodium Chloride [Saline Flush] MEDS 05/29/19 15:04 Active 1 syr IVF PRN PRN Metoprolol Tartrate [Lopressor] MEDS 05/29/19 16:33 Stat 5 mg IVP ONCE STA Nitroglycerin [Nitrostat] MEDS 05/29/19 16:34 Stat 0.4 mg SL ONCE STA CT CHEST PE PROTOCOL Stat RADS 05/29/19 15:05 Taken Medications Generic Name Dose Route Start Last Admin Trade Name Freq PRN Reason Stop Dose Admin Sodium Chloride 1 syr 05/29/19 15:04 Saline Flush IVF PRN PRN To flush IV Discontinued Medications Generic Name Dose Route Start Last Admin Trade Name Freq PRN Reason Stop Dose Admin Metoprolol Tartrate 5 mg 05/29/19 16:33 Lopressor IVP 05/29/19 16:34 ONCE STA Nitroglycerin 0.4 mg 05/29/19 16:34 Nitrostat SL 05/29/19 16:35 ONCE STA Vital Signs: Temp Pulse Resp BP Pulse Ox 05/29/19 14:54 99.0 F 104 H 20 169/90 H 95 JONATHAN Risk Score JONATHAN Risk Score: Risk Score Odds of by 30D 0 0.1 (0.1-0.2) 1 0.3 (0.2-0.3) 2 0.4 (0.3-0.5) 3 0.7 (0.6-0.9) 4 1.2 (1.0-1.5) 5 2.2 (1.9-2.6) 6 3.0 (2.5-3.6) 7 4.8 (3.8-6.1) Departure - Departure Time of Disposition: 16:47 Disposition: TSF SHORT-TRM HOSP Discharge Problem: ACS (acute coronary syndrome) Condition: Good Pt referred to PMD for follow-up: Yes IPMP verified?: No Additional Instructions: Please call your Family Physician as soon as possible to schedule a follow-up appointment. Allergies/Adverse Reactions: Allergies [id number] inhibitor Adverse Reaction (Verified 05/29/19 14:58) cod liver oil Adverse Reaction (Verified 05/29/19 14:58) metoprolol succinate [From Toprol XL] Adverse Reaction (Verified 05/29/19 14:58) Penicillins Adverse Reaction (Verified 05/29/19 14:58) alpha blockers Adverse Reaction (Uncoded 11/02/16 22:46) beta blockers Adverse Reaction (Uncoded 11/02/16 22:46) Home Medications: Ambulatory Orders Rosuvastatin Calcium [Crestor] 5 mg PO DAILY 04/06/13 Doxazosin Mesylate [Cardura Xl] 4 mg PO DAILY #30 tab.er.24 11/05/16 Alprazolam 0.5 mg PO BID 08/11/18 Amlodipine Besylate 5 mg PO DAILY 08/11/18 Aspirin 81 mg PO DAILY 08/11/18 Krill Oil 500 mg PO DAILY 08/11/18 Levothyroxine Sodium 50 mcg PO DAILY 08/11/18 Meclizine HCl 12.5 mg PO PRN 08/11/18 Melatonin 10 mg PO BEDTIME 08/11/18 Propranolol HCl 20 mg PO DAILY 08/11/18 Ropinirole HCl [Requip] 0.25 mg PO BEDTIME 08/11/18 Venlafaxine HCl [Venlafaxine Hcl Er] 75 mg PO DAILY 08/11/18
--- NOTE | 2019-05-29 17:04 | CT ---
Exam: CT angiography of the chest with intravenous contrast, PE protocol with 3-D MIP reformatted im ages. Comparison: CT chest performed 11/02/2016. Reason for exam: Pain. FINDINGS: Pneumothorax, pleural effusion, or focal airspace consolidation. There is bibasilar atele ctasis. Image interpretation is limited by collateralized vasculature seen throughout the thorax. N o main, proximal, or segmental pulmonary arterial filling defects are seen. No suspicious appearing osteoblastic or osteolytic lesions. There are old right-sided rib fractures. 1.6 cm nodule seen adjacent to the pancreatic tail likely a splenule. Impression: 1. No main, proximal, or segmental pulmonary arterial filling defect is seen. 2. Basilar atelectasis/inflammation
== END 2019-05-29 17:08 | disposition short-term general hospital (02) ==
LOC: ED 14:53
DX: I24.9 Acute ischemic heart disease, unspecified (principal); I10 Essential (primary) hypertension; R07.9 Chest pain, unspecified; Z79.899 Other long term (current) drug therapy; Z85.46 Personal history of malignant neoplasm of prostate
CPT/HCPCS: 36415; 80053; 82550; 84484; 85025; 85610; 85730; 93005; 93010; 99285

== ENCOUNTER 2019-05-29 17:12 | Outpatient (CLI) ==
[2019-05-29 14:58] VITALS: BMI 24.2
== END 2019-05-29 17:35 | disposition short-term general hospital (02) ==
LOC: AMBL 17:12
PROVIDERS: ATTEND Internal Medicine
DX: R07.9 Chest pain, unspecified (principal)

== ENCOUNTER 2019-11-17 10:40 | Inpatient (IN) ==
--- NOTE | 2019-11-17 10:52 | ED.PDOC ---
General ED Provider: Dr. ENE REYNOLDS Chief Complaint: Chest Pain Stated Complaint: Was on treadmill this AM; had chest pain and sent to ER. Had triple bypass last July - sensation today similar to that previously - like indigestion and some jaw pain Time Seen by Physician: 10:52 Information Source: Patient Exam Limitations: No limitations Primary Care Provider: JEFERSON LUCIO Nursing and Triage Documentation Reviewed and Agree: Yes Does patient meet sepsis criteria?: Yes If yes, has appropriate treatment been initiated?: No System Inflammatory Response Syndrome: Not Applicable Sepsis Protocol: For patient's 13 years and over: Temp is 96.8 and below OR 101 and greater Pulse >90 BPM Resp >20/minute Acutely Altered Mental Status Are patient's symptoms suggestive of a new infection, such as: -Pneumonia -Skin, Soft Tissue -Endocarditis -UTI -Bone, Joint Infection -Implantable Device -Acute Abdominal Infection -Wound Infection -Meningitis -Blood Stream Catheter Infection -Unknown Review of Systems Review Of Systems Constitutional: Reports No symptoms Eyes: Reports No symptoms Ears, Nose, Mouth, Throat: Reports Throat pain (jaw pain with the exercise this AM) Respiratory: Reports No symptoms Cardiac: Reports Chest pain (like indigesion) GI: Reports No symptoms : Reports No symptoms Musculoskeletal: Reports No symptoms Skin: Reports No symptoms Neurological: Reports No symptoms All Other Systems: Reviewed and Negative [facility] Medical History Concussion Depressed skull fracture Fracture, ribs Hypertension Multiple allergies Pacemaker Prostate cancer PTSD (post-traumatic stress disorder) (Acute) Family History Mother Stroke FATHER Stroke Social History Smoking and tobacco status: Never smoker History of recent travel: No Physical Exam Physical Exam Appearance: Reports Well-appearing Ill-appearing: None Pain Distress: Mild (substernal and L jaw) Eyes: Reports JACQUELIN, EOMI and Conjunctiva clear ENT: Reports Ears normal, Nose normal and Oropharynx normal Neck: Supple Respiratory: Reports Airway patent, Breath sounds clear and Breath sounds equal Cardiovascular: Reports RRR, Pulses normal, No rub and No murmur GI/: Reports Soft and Nontender Musculoskeletal: Reports Normal strength, ROM intact, No edema and No calf tenderness Skin: Reports Warm, Dry and Normal color Neurological: Reports Sensation intact and Motor intact Psychiatric: Reports Affect appropriate and Mood appropriate Interpretation Radiology Interpretation Radiology Interpretation By: Radiologist Exam Interpreted: Portable CXR and CT Scan (CT Chest PE - Negative for PE) Xray Comments: No acute cardiopulmonary process EKG Interpretation Time of EKG #1: 10:30 Rate: Normal Rhythm: Sinus (Atrial paced) Ectopy: None [place]: NL ST Segment: Normal Interpretation: No aparent acute changes Re-Evaluation Re-Evaluation Time of Re-Evaluation: 15:25 Status: Improved Vital Signs Stable: Yes Appearance: NAD Skin: Warm and Dry Neuro: Alert and Oriented X3 Additional Comments: Educated re findings; plan to discuss with Dr. Lucio Physician Notification Case Discussed Physician Notified: Dr Lucio Discussed admission Time of Notification: 15:30 Critical Care Note Critical Care Note Total Time (mins): 35 Comments: Review of pt history/prior cardiac events/ bypass; current labs; EKG, CXR, CT, discussion with Primary care. Course Course Hematology/Chemistry: 11/18/19 05:02 11/18/19 05:02 Orders, Labs, Meds: Lab Review 11/17/19 11/17/19 11/17/19 00:54 11:03 11:03 WBC 7.24 RBC 4.22 L Hgb 13.5 L Hct 38.7 L MCV 91.7 MCH 32.0 H MCHC 34.9 RDW Coeff of Josy 14.1 Plt Count 213 Immature Gran % (Auto) 0.8 Neut % (Auto) 49.0 Lymph % (Auto) 37.8 [place] % (Auto) 9.9 Eos % (Auto) 1.7 Baso % (Auto) 0.8 Immature Gran # (Auto) 0.1 Neut # (Auto) 3.5 Lymph # (Auto) 2.7 [place] # (Auto) 0.7 Eos # (Auto) 0.1 Baso # (Auto) 0.1 D-Dimer (Manual) Sodium 136.1 Potassium 4.05 Chloride 101.9 Carbon Dioxide 29.0 Anion Gap 9.25 BUN 11.1 Creatinine 0.57 L Estimated GFR (MDRD) 143.00 BUN/Creatinine Ratio 19.47 Glucose 88.0 Calcium 8.96 Total Bilirubin 0.60 AST 28.2 ALT 20.2 Alkaline Phosphatase 82.6 Total Creatine Kinase 106.9 Troponin I < 0.012 < 0.012 Total Protein 6.99 Albumin 4.21 Globulin 2.78 Albumin/Globulin Ratio 1.51 11/17/19 11:03 WBC RBC Hgb Hct MCV MCH MCHC RDW Coeff of Josy Plt Count Immature Gran % (Auto) Neut % (Auto) Lymph % (Auto) [place] % (Auto) Eos % (Auto) Baso % (Auto) Immature Gran # (Auto) Neut # (Auto) Lymph # (Auto) [place] # (Auto) Eos # (Auto) Baso # (Auto) D-Dimer (Manual) 577.70 Sodium Potassium Chloride Carbon Dioxide Anion Gap BUN Creatinine Estimated GFR (MDRD) BUN/Creatinine Ratio Glucose Calcium Total Bilirubin AST ALT Alkaline Phosphatase Total Creatine Kinase Troponin I Total Protein Albumin Globulin Albumin/Globulin Ratio Orders Category Date Time Status EKG-(IP & OP ONLY) DAILY CARDIO 11/18/19 06:00 Completed EKG-(IP & OP ONLY) DAILY CARDIO 11/19/19 06:00 Ordered EKG-(IP & OP ONLY) DAILY CARDIO 11/19/19 06:00 Ordered OXYGEN Routine CARDIO 11/17/19 15:23 Active ACTIVITY .BR with BRP CARE 11/17/19 15:20 Active INSERT SALINE LOCK ONCE CARE 11/17/19 15:23 Active INTAKE & OUTPUT Q8HR CARE 11/17/19 15:21 Active INTAKE & OUTPUT Q8HR CARE 11/17/19 15:23 Active NPO REMINDER: IMAGING ONCE CARE 11/17/19 13:15 Completed TELEMETRY MONITORING TELE CARE 11/17/19 15:23 Active VITAL SIGNS Q8HR CARE 11/17/19 15:21 Active VITAL SIGNS Q8HR CARE 11/17/19 15:23 Active CBC W/ AUTO DIFF DAILY@0600 LAB 11/18/19 05:02 Completed CBC W/ AUTO DIFF DAILY@0600 LAB 11/19/19 06:00 Ordered CBC W/ AUTO DIFF Stat LAB 11/17/19 11:03 Completed COMPREHENSIVE METABOLIC PANEL DAILY@0600 LAB 11/18/19 05:02 Completed COMPREHENSIVE METABOLIC PANEL DAILY@0600 LAB 11/19/19 06:00 Ordered COMPREHENSIVE METABOLIC PANEL Stat LAB 11/17/19 11:03 Completed CREATINE KINASE Q8H LAB 11/17/19 00:54 Completed CREATINE KINASE Q8H LAB 11/17/19 15:55 Completed D-DIMER Stat LAB 11/17/19 11:03 Completed TROPONIN I Q8H LAB 11/17/19 00:54 Completed TROPONIN I Q8H LAB 11/17/19 15:55 Completed TROPONIN I Stat LAB 11/17/19 11:03 Completed 0.9 % Sodium Chloride [Saline Flush] MEDS 11/17/19 21:00 Active 1 syr IVF Q8HR Acetaminophen [Tylenol] MEDS 11/17/19 15:20 Active 650 mg PO Q4H PRN Atropine Sulfate Inj [Atropine Sulfate Pfs] MEDS 11/17/19 15:20 Active 0.5 mg IVP ONCE PRN Nitroglycerin [Nitrostat] MEDS 11/17/19 15:20 Active 0.4 mg SL Q5MIN X 3 DOSES PRN Sodium Chloride 0.9% [Sodium Chloride] 1,000 ml MEDS 11/17/19 15:30 Active IV 75 mls/hr RESUSCITATION STATUS Routine OTHERS 11/17/19 15:20 Ordered CHEST, 1V AP ONLY Stat RADS 11/17/19 10:[address] CHEST PE PROTOCOL Stat RADS 11/17/19 13:15 Completed Medications Generic Name Dose Route Start Last Admin Trade Name Freq PRN Reason Stop Dose Admin Acetaminophen 650 mg 11/17/19 15:20 Tylenol PO Q4H PRN Pain Alprazolam 0.25 mg 11/17/19 21:00 11/17/19 20:52 Xanax PO 0.25 mg 1200,2100 DAVION Administration Alprazolam 0.5 mg 11/18/19 08:00 Xanax PO DAILY@0800 [facility] Amlodipine Besylate 5 mg 11/17/19 21:00 11/17/19 20:53 Norvasc PO 5 mg BID DAVION Administration Aspirin 81 mg 11/18/19 08:00 Aspirin Chewable PO DAILYWM [facility] Atorvastatin Calcium 20 mg 11/18/19 12:00 Lipitor PO 1200 DAVION Atropine Sulfate 0.5 mg 11/17/19 15:20 Atropine Sulfate Pfs IVP ONCE PRN Symptomatic Bradycardia Doxazosin Mesylate 4 mg 11/18/19 09:00 Cardura PO DAILY DAVION Furosemide 20 mg 11/18/19 06:30 Lasix Tab PO QDAC [facility] Sodium Chloride 1,000 mls @ 75 mls/hr 11/17/19 15:30 11/18/19 05:06 Sodium Chloride IV 75 mls/hr .[id number] DAVION Administration Levothyroxine Sodium 50 mcg 11/18/19 06:30 Synthroid PO QDAC DAVION Nitroglycerin 0.4 mg 11/17/19 15:20 Nitrostat SL Q5MIN X 3 DOSES PRN Chest Pain Non-Formulary Medication 1 mg 11/18/19 09:00 Melatonin PO DAILY DAVION Propranolol HCl 20 mg 11/17/19 21:00 11/17/19 20:53 Inderal PO 20 mg BID DAVION Administration Ropinirole HCl 3 mg 11/17/19 21:00 11/17/19 20:52 Requip PO 3 mg BEDTIME DAVION Administration Sodium Chloride 1 syr 11/17/19 21:00 11/18/19 05:49 Saline Flush IVF Not Given Q8HR DAVION Thiamine HCl 100 mg 11/18/19 09:00 Thiamine IM DAILY DAVION Venlafaxine HCl 150 mg 11/17/19 21:00 11/17/19 20:52 Effexor Xr PO 150 mg BEDTIME DAVION Administration Discontinued Medications Generic Name Dose Route Start Last Admin Trade Name Freq PRN Reason Stop Dose Admin Alprazolam 0.5 mg 11/17/19 21:00 11/17/19 20:51 Xanax PO 0.5 mg TID DAVION Administration Thiamine HCl 100 mg 11/17/19 17:35 11/17/19 18:10 Thiamine IM 11/17/19 17:36 100 mg ONCE STA Administration Vital Signs: Temp Pulse Resp BP Pulse Ox 11/17/19 11:16 64 18 125/66 98 11/17/19 10:41 69 20 149/84 H 99 11/17/19 10:40 97.8 F 84 18 125/66 99 JONATHAN Risk Score JONATHAN Risk Score: Risk Score Odds of by 30D 0 0.1 (0.1-0.2) 1 0.3 (0.2-0.3) 2 0.4 (0.3-0.5) 3 0.7 (0.6-0.9) 4 1.2 (1.0-1.5) 5 2.2 (1.9-2.6) 6 3.0 (2.5-3.6) 7 4.8 (3.8-6.1) Discharge Plan Discharge Patient Disposition: ADMITTED INPATIENT Discharge Problem: Chest pain ED Provider: ENE REYNOLDS Condition: Good Discharge Date/Time: 11/17/19 16:00
[2019-11-17 11:12] LABS: HEMATOCRIT 38.7 % (42.0-52.0)
--- NOTE | 2019-11-17 11:21 | DI ---
EXAM: Single view of the chest. History: Chest pain. Comparison: Chest radiograph 09/20/2019 Findings: Heart size is normal. Sternotomy wires. Pacer device. No focal consolidation. No appre ciable pleural fluid and no pneumothorax. No acute osseous abnormalities. Impression: No acute cardiopulmonary process
--- NOTE | 2019-11-17 15:10 | CT ---
EXAM: CTA of the chest. History: Chest pain. Comparison: Chest radiograph 11/17/2019, chest CT 05/29/2019 Technique: Multiplanar CT images through the thorax were obtained following administration of IV con trast. MIP images and 3-D reconstructions were also acquired. Findings: Heart size is upper limits of normal. No pericardial effusion. No thoracic aortic aneurys m. Coronary calcifications. Sternotomy wires. No pathologically enlarged thoracic lymph nodes. No pulmonary arterial filling defects. No consolidation. No pleural fluid and no pneumothorax. No lozoya spicious lung masses or lung nodules. Within the visualized upper abdomen, no acute findings. No acute osseous abnormalities. Impression: No pulmonary embolism and no evidence for pneumonia. Coronary artery disease and previo us cardiac surgery.
[2019-11-17] MEDS ORDERED: ATROPINE SULFATE PFS IVP PRN (15:20)
[2019-11-17] MEDS ORDERED: NITROSTAT SL PRN (15:20)
[2019-11-17] MEDS ORDERED: TYLENOL PO PRN (15:20)
[2019-11-17] MEDS: SODIUM CHLORIDE 1,000 ML IV SCH (16:17)
[2019-11-17 16:27] VITALS: BMI 10.8
[2019-11-17] MEDS ORDERED: THIAMINE IM STA (17:35)
[2019-11-17] MEDS: EFFEXOR XR PO SCH (20:52)
[2019-11-17] MEDS: REQUIP PO SCH (20:52)
[2019-11-17] MEDS: INDERAL PO SCH (20:53)
[2019-11-17] MEDS: NORVASC PO SCH (20:53)
[2019-11-17] MEDS ORDERED: XANAX PO SCH ×2 (21:00)
[2019-11-18] MEDS: SODIUM CHLORIDE 1,000 ML IV SCH ×2 (05:06→18:07)
[2019-11-18 05:41] LABS: HEMATOCRIT 36.7 % (42.0-52.0)
[2019-11-18] MEDS: SYNTHROID PO SCH ×2 (05:48→08:34)
[2019-11-18] MEDS: LASIX TAB PO SCH ×2 (05:48→08:34)
[2019-11-18] MEDS ORDERED: ASPIRIN EC PO SCH (08:00)
[2019-11-18] MEDS: CARDURA PO SCH (08:33)
[2019-11-18] MEDS: ASPIRIN CHEWABLE PO SCH (08:33)
[2019-11-18] MEDS: INDERAL PO SCH ×2 (08:33→20:27)
[2019-11-18] MEDS: XANAX PO SCH ×3 (08:35→20:33)
[2019-11-18] MEDS: NORVASC PO SCH ×2 (08:35→20:27)
[2019-11-18] MEDS: THIAMINE IM SCH (08:36)
[2019-11-18] MEDS ORDERED: NORVASC PO SCH (09:00)
[2019-11-18] MEDS ORDERED: DOXAZOSIN 4 MG PO SCH ×2 (09:00)
[2019-11-18] MEDS: NON-FORMULARY MEDICATION (Melatonin 1 MG) PO SCH (09:23)
--- NOTE | 2019-11-18 09:28 | PCM.PROG ---
Attending Provider: ATTENDING PROVIDER: Dr. JEFERSON LUCIO DATE OF SERVICE: 11/18/19 SUBJECTIVE: This 69 year old /WHITE M was hospitalized 11/17/19 with chest pain with exertion, jaw pain and upper chest pain while doing cardiac rehab. He was sent to the emergency room. The patient's condition is stable. No chest pain. The patient was complaining of dizziness, light headedness off and on for past couple of weeks. The patient admits to alcohol abuse. The patient is known alcoholic. The patient had concussion several years ago. REVIEW OF SYSTEMS: CONSTITUTIONAL: No night sweats. No fatigue, malaise, lethargy. No fever or chills. HEENT: Eyes: No visual changes. No eye pain. No eye discharge. ENT: No runny nose. No epistaxis. No sinus pain. No odynophagia. No congestion. RESPIRATORY: No cough, no congestion. No hemoptysis. No shortness of breath. CARDIOVASCULAR: No angina symptoms. No CHF symptoms. No atypical chest pain for CAD. No palpitations. No orthopnea.. GASTROINTESTINAL: No abdominal pain. No nausea or vomiting. No diarrhea or constipation. No hematemesis. No hematochezia. GENITOURINARY: No urgency. No frequency. No dysuria. No hematuria. No obstruc tive symptoms. No discharge. No pain. No significant abnormal bleeding. MUSCULOSKELETAL: No musculoskeletal pain; no joint swelling. NEUROLOGICAL: Awake, alert, oriented to time, place and person. No headache. No neck pain. No syncope. No seizures. No dizziness. PSYCHIATRIC: Not anxious. No depression. No suicidal thoughts. No homicidal thoughts. SKIN: No rash. No lesions. No wounds. ENDOCRINE: No unexplained weight loss. No weight gain. HEMATOLOGIC/LYMPHATIC: No anemia. No purpura. No petechiae. No prolonged or excessive bleeding. No palpable lymph nodes. PHYSICAL EXAMINATION: GENERAL: The patient is awake, alert and oriented, lying in bed in no distress. VITAL SIGNS: Temperature 98.1 F, Pulse 70, Respiratory Rate 18, BP 131/77, Pulse Ox 97% HEENT: Head normocephalic, atraumatic. Eyes: Extraocular muscles are intact. Pupils are equal, round and reactive to light and accommodation. Ears: No lesions. Nose appeared normal. Throat: No exudate or erythema. NECK: Supple. No JVD, no carotid bruit. No lymphadenopathy or thyromegaly. LUNGS: Clear to auscultation. Percussion note normal. Chest symmetrical. HEART: S1, S2, no S3. No murmurs. No cyanosis or clubbing. No ascites. Pulses: Dorsalis pedis and posterior tibial pulses +1 to +2 both sides. ABDOMEN: Soft. Non-tender. Bowel sounds active. No CVA tenderness. No mass felt. EXTREMITIES: No edema. Full range of motion of all extremities, equal. NEUROLOGIC: No focal deficit. Cranial nerves II through XII are grossly intact. No headache, no double vision or headache. SKIN: Warm and dry. Intact. Turgor-normal. LYMPHATIC: No palpable lymph nodes/no lymphedema. MUSCULOSKELETAL: Normal joints with no swelling. Muscle tone is normal. LAB REVIEW: 11/18/19 05:02 11/18/19 05:02 11/18/19 05:02: Sodium 139.6, Potassium 3.82, Chloride 107.6 H, Carbon Dioxide 26.7, Anion Gap 9.12, BUN 13.3, Creatinine 0.60, Estimated GFR (MDRD) 134.00, BUN/Creatinine Ratio 22.16, Glucose 96.8, Calcium 8.87, Total Bilirubin 0.46, AST 41.6, ALT 20.9, Alkaline Phosphatase 79.5, Troponin I < 0.012, Total Protein 6.36, Albumin 3.79, Globulin 2.57, Albumin/Globulin Ratio 1.47 11/18/19 05:02: WBC 7.93, RBC 3.94 L, Hgb 12.8 L, Hct 36.7 L, MCV 93.1, MCH 32.5 H, MCHC 34.9, RDW Coeff of Josy 14.4, Plt Count 217, Immature Gran % (Auto) 0.8, Neut % (Auto) 46.0, Lymph % (Auto) 39.5, [place] % (Auto) 11.3 H, Eos % (Auto) 1.6, Baso % (Auto) 0.8, Immature Gran # (Auto) 0.1, Neut # (Auto) 3.7, Lymph # (Auto) 3.1, [place] # (Auto) 0.9, Eos # (Auto) 0.1, Baso # (Auto) 0.1 11/17/19 15:55: Total Creatine Kinase 49.8 L, Troponin I < 0.012 11/17/19 11:03: D-Dimer (Manual) 577.70 11/17/19 11:03: Sodium 136.1, Potassium 4.05, Chloride 101.9, Carbon Dioxide 29.0, Anion Gap 9.25, BUN 11.1, Creatinine 0.57 L, Estimated GFR (MDRD) 143.00, BUN/Creatinine Ratio 19.47, Glucose 88.0, Calcium 8.96, Total Bilirubin 0.60, AST 28.2, ALT 20.2, Alkaline Phosphatase 82.6, Troponin I < 0.012, Total Protein 6.99, Albumin 4.21, Globulin 2.78, Albumin/Globulin Ratio 1.51 11/17/19 11:03: WBC 7.24, RBC 4.22 L, Hgb 13.5 L, Hct 38.7 L, MCV 91.7, MCH 32.0 H, MCHC 34.9, RDW Coeff of Josy 14.1, Plt Count 213, Immature Gran % (Auto) 0.8, Neut % (Auto) 49.0, Lymph % (Auto) 37.8, [place] % (Auto) 9.9, Eos % (Auto) 1.7, Baso % (Auto) 0.8, Immature Gran # (Auto) 0.1, Neut # (Auto) 3.5, Lymph # (Auto) 2.7, [place] # (Auto) 0.7, Eos # (Auto) 0.1, Baso # (Auto) 0.1 11/17/19 00:54: Total Creatine Kinase 106.9, Troponin I < 0.012 ASSESSMENT: Please see below. 1. Chest pain being evaluated, no evidence of acute AK. Cardiac markers are negative. 2. Dizziness. 3. Lightheadedness PLAN: 1. CT scan of brain with contrast 2. Scheduled for echo and stress echo for Friday Plan and coordination of the patient's care discussed in the presence of Human Resources Department Supervisor and nurse. EDUCATION: Counseling for alcohol abuse. The patient does not have any understanding of his medications and what dosages he has been taking. CONDITION: Stable SCRIBED BY: Sanjeev PANIAGUA scribed while in presence of service performed by Dr. JEFERSON LUCIO on 11/18/19 ([id number])
--- NOTE | 2019-11-18 09:29 | HP ---
DATE OF SERVICE: 11/17/19 HISTORY OF PRESENT ILLNESS: 69-year-old White male was doing cardiac rehab when he developed jaw pain and upper chest pain similar to what he had prior to having coronary artery bypass surgery. The patient says it lasted a few seconds and as soon as he stopped it went away. He denied any shortness of breath. No perspiration. The patient was sent to the emergency room to be examined and checked out. In the ER the patient has no evidence of any acute IN. EKG shows sinus rhythm, LVH. The rest of the cardiac markers, electrolytes and et cetera were normal. The patient has been hospitalized to rule out IN or ischemia. REVIEW OF SYSTEMS: CONSTITUTIONAL: No night sweats. No fatigue, malaise, lethargy. No fever or chills. HEENT: Eyes: No visual changes. No eye pain. No eye discharge. ENT: No runny nose. No epistaxis. No sinus pain. No sore throat. No odynophagia. No ear pain. No congestion. RESPIRATORY: No cough, no congestion. No hemoptysis. No shortness of breath. CARDIOVASCULAR: Positive for chest pain with exertion on the treadmill with jaw pain and upper sternal pain. No angina symptoms. No CHF symptoms. No palpitations. No PND. No orthopnea. GASTROINTESTINAL: No abdominal pain. No nausea or vomiting. No diarrhea or constipation. No hematemesis. No hematochezia. GENITOURINARY: No urgency. No frequency. No dysuria. No hematuria. No obstructive symptoms. No discharge. No pain. No significant abnormal bleeding. MUSCULOSKELETAL: No musculoskeletal pain. No joint swelling. No arthritis. NEUROLOGICAL: No headache. No neck pain. No syncope. No seizures. No dizziness. PSYCHIATRIC: Not anxious. No depression. No suicidal thoughts. No homicidal thoughts. SKIN: No rash. No lesions. No wounds. ENDOCRINE: No unexplained weight loss. No weight gain. HEMATOLOGIC/LYMPHATIC: No anemia. No purpura. No petechiae. No prolonged or excessive bleeding. No palpable lymph nodes. PERSONAL/FAMILY/SOCIAL HISTORY: The patient is , lives by himself, heavy alcohol abuse, nonsmoker. He does all activity of daily living. He drives a car. He doesn't remember most of his medications, always confused about it. MEDICATIONS: Effexor Inderal Amlodipine Lasix The patient doesn't know what medications he is taking, doesn't know what the doses are that he has been taking. As usual he is very confused and noncompliant. ALLERGIES: METOPROLOL SUCCINATE, PENICILLINS, COD LIVER OIL, [id number] INHIBITOR, ALPHA BLOCKERS, BETA BLOCKERS PHYSICAL EXAMINATION: GENERAL: The patient is oriented to time, place and person. HEENT: Head normocephalic, atraumatic. Eyes: Extraocular muscles are intact. Pupils are equal, round and reactive to light and accommodation. Ears: No lesions. Nose appeared normal. Throat: No exudate or erythema. NECK: Supple. No JVD, no carotid bruit. No lymphadenopathy or thyromegaly. LUNGS: Clear to auscultation. Percussion note normal. Chest symmetrical. HEART: PMI not palpable. S1, S2, no S3. Grade I/ systolic murmur. No cyanosis or clubbing. No ascites. Pulses: Dorsalis pedis and posterior tibial pulses +2 bilaterally. Radial pulses +2. ABDOMEN: Soft. Nontender. Bowel sounds active. No CVA tenderness. No mass felt. EXTREMITIES: No pedal edema. Full range of motion of all extremities, equal. NEUROLOGIC: No focal deficit. Cranial nerves II through XII are grossly intact. No headache, no double vision or headache. SKIN: Not dry. Intact. Turgor - normal. LYMPHATIC: No palpable lymph nodes/no lymphedema. MUSCULOSKELETAL: Normal joints with no swelling. Muscle tone is normal. EKG sinus rhythm, LVH, no acute changes. Cardiac markers are negative for any acute myocardial event. CBC normal. ASSESSMENT: 1. CHEST PAIN WITH EXERTION, SOUNDS MORE LIKE ANGINA TYPE OF SYMPTOMS. HISTORY OF CORONARY ARTERY BYPASS SURGERY. 2. CARDIAC ARRHYTHMIAS WITH PACEMAKER. 3. DIZZINESS, LIGHT-HEADEDNESS FOR THE PAST 5 TO 6 DAYS, NEAR SYNCOPAL EPISODES. 4. ALCOHOL ABUSE. 5. HYPERTENSION. 6. NONCOMPLIANCE OF LIFESTYLE, MEDICATIONS, RECOMMENDATIONS. 7. HISTORY OF CONCUSSION A COUPLE OF YEARS AGO. 8. DEPRESSION WITH NO SUICIDAL OR HOMICIDAL TENDANCIES. 9. DYSLIPIDEMIA. PLAN: 1. Admit the patient with routine telemetry orders, serial EKGs and cardiac markers. 2. 2D 'M' Mode echo. 3. Stress echo Sestamibi. 4. CT scan of the head with contrast. 5. Carotid scan. 6. Counseling for alcohol abuse done. 7. Strongly advised to quit drinking. 8. New medication, Thiamine 100 mg IM daily. 9. New medication, Inderal 20 mg twice a day. 10. Amlodipine 5 mg twice a day. 11. Baby Aspirin a day. 12. Effexor 150 mg p.o. daily. 13. Requip 1 mg p.o. at h.s. ADDENDUM: The patient also complained of mild dizziness with near syncopal episode the past couple of weeks, admitted having a drinking problem and drinking excessively lately. TIME SPENT: More than 70 minutes. MTDD
[2019-11-18] MEDS: LIPITOR PO SCH (11:50)
--- NOTE | 2019-11-18 14:54 | CT ---
EXAM: CT of the head with and without contrast History: Weakness, chest pain and forgetfulness. Comparison: Head CT 11/04/2016 Technique: Multiplanar CT images through the head were obtained without and with the administration of IV contrast Findings: The visualized paranasal sinuses and mastoid air cells are clear in general. No acute narinder varial abnormalities. Intracranially the ventricular and cisternal spaces are normal in size, shape and configuration for a patient of this age. No dominant mass or midline shift. No hydrocephalous. No acute intracranial hemorrhage or abnormal extraaxial fluid collections. There is no abnormal contrast enhancement and n o contrast enhancing lesions. Impression: Normal study
--- NOTE | 2019-11-18 15:45 | US ---
EXAM: Bilateral carotid artery Doppler History: Weak, forgetfulness and chest pain. Technique: Multiple sonographic images through the bilateral internal carotid arteries were obtained . Color duplex Doppler was used to interrogate vascular flow. Findings: The right ICA peak systolic velocity is within normal limits measuring 104 cm/sec. The right ICA/cca PSV ratio is normal at 1.2. The right vertebral artery is patent and demonstrates antegrade flow. Evans scale images demonstrate mild to moderate plaque buildup within the right internal carotid arter y. The left ICA peak systolic velocity is within normal limits measuring 74 cm/sec. The left ICA/cca PS V ratio is normal at 0.60. The left vertebral artery is patent and demonstrates antegrade flow. Gra y scale images demonstrate mild plaque buildup within the left internal carotid artery. Impression: No significant hemodynamic stenosis of the bilateral internal carotid arteries
[2019-11-18] MEDS: REQUIP PO SCH (20:26)
[2019-11-18] MEDS: EFFEXOR XR PO SCH (20:27)
[2019-11-19 05:08] VITALS: BP 130/76; TEMP 98.4
[2019-11-19 05:20] LABS: HEMATOCRIT 36.8 % (42.0-52.0)
[2019-11-19] MEDS: INDERAL PO SCH (09:54)
[2019-11-19] MEDS: ASPIRIN CHEWABLE PO SCH (09:54)
[2019-11-19] MEDS: NORVASC PO SCH (09:54)
[2019-11-19] MEDS: SYNTHROID PO SCH (09:55)
[2019-11-19] MEDS: LASIX TAB PO SCH (09:55)
[2019-11-19] MEDS: NON-FORMULARY MEDICATION (Melatonin 1 MG) PO SCH (09:56)
[2019-11-19] MEDS: CARDURA PO SCH (09:57)
[2019-11-19] MEDS: XANAX PO SCH ×2 (10:07→12:55)
--- NOTE | 2019-11-19 10:44 | NM ---
Exam: Myocardial perfusion study. Date: 11/19/2019. Comparison: None. HISTORY: Chest pain. TECHNIQUE: The patient was exercised using the Hubert protocol for 6 minutes and 18 seconds achieving 8.5 mets. With the patient at maximum tolerated treadmill stress, 30.8 mCi of technetium 99m sestam ibi was injected and SPECT myocardial perfusion imaging begun within 60 minutes. For comparison, a r esting study was performed following injection of 11.5 mCi of technetium 99m sestamibi. A stress gat ed acquisition was acquired as part of the study to evaluate for regional wall motion as well as to g carley an estimation of left ventricular ejection fraction. FINDINGS: There is normal physiologic uptake of the radiotracer. The wall motion is normal. The LV EF is estimated at 60%. Impression: Normal study. No stress-induced ischemic changes. Normal wall motion with an LVEF arsh mated at 60%.
[2019-11-19] MEDS: SODIUM CHLORIDE 1,000 ML IV SCH (10:50)
[2019-11-19] MEDS: THIAMINE IM SCH (11:04)
--- NOTE | 2019-11-19 12:31 | CM.DICTOOL ---
ADMISSION: 11/17/19 15:25 DISCHARGE: NOVEMBER 19, 2019 DATE OF SERVICE: 11/19/19 FINAL DIAGNOSIS CHEST PAIN, EXERTIONAL NEAR SYNCOPAL EPISODES HYPERTENSION CARDIAC ARRHYTHMIAS WITH PACEMAKER KS DYSLIPIDEMIA HYPOTHYROIDISM NON-COMPLIANCE OF LIFESTYLE, MEDICATIONS AND RECOMMENDATIONS ALCOHOL ABUSE HISTORY OF TOBACCO USE DEPRESSION, NO SUICIDAL TENDENCIES HISTORY OF CONCUSSION CABG, [id number] PACEMAKER LAST VITALS Temp Pulse Resp BP Pulse Ox 98.4 F 68 18 130/76 95 11/19/19 05:07 11/19/19 05:07 11/19/19 05:07 11/19/19 05:07 11/19/19 05:07 TAKE THESE MEDICATIONS AT HOME Alprazolam (Xanax) 0.5 mg PO DAILY@0800 [facility] Last Admin: 11/19/19 10:07 Dose: 0.5 mg Documented by: Alprazolam (Xanax) 0.25 mg PO 1200,2100 [facility] Last Admin: 11/18/19 20:33 Dose: 0.25 mg Documented by: Amlodipine Besylate (Norvasc) 5 mg PO BID [facility] Last Admin: 11/19/19 09:54 Dose: 5 mg Documented by: Aspirin (Aspirin Chewable) 81 mg PO DAILYWM [facility] Last Admin: 11/19/19 09:54 Dose: 81 mg Documented by: Atorvastatin Calcium (Lipitor) 20 mg PO 1200 [facility] Last Admin: 11/18/19 11:50 Dose: 20 mg Documented by: Doxazosin Mesylate (Cardura) 4 mg PO DAILY [facility] Last Admin: 11/19/19 09:57 Dose: 4 mg Documented by: Furosemide (Lasix Tab) 20 mg PO QDAC [facility] Last Admin: 11/19/19 09:55 Dose: 20 mg Documented by: Levothyroxine Sodium (Synthroid) 50 mcg PO QDAC [facility] Last Admin: 11/19/19 09:55 Dose: 50 mcg Documented by: Nitroglycerin (Nitrostat) 0.4 mg SL Q5MIN X 3 DOSES PRN PRN Reason: Chest Pain (NEW RX) Non-Formulary Medication (Melatonin) 1 mg PO DAILY [facility] Last Admin: 11/19/19 09:56 Dose: Not Given Documented by: Propranolol HCl (Inderal) 20 mg PO BID [facility] Last Admin: 11/19/19 09:54 Dose: 20 mg Documented by: Ropinirole HCl (Requip) 3 mg PO BEDTIME [facility] Last Admin: 11/18/19 20:26 Dose: 3 mg Documented by: Venlafaxine HCl (Effexor Xr) 150 mg PO BEDTIME [facility] Last Admin: 11/18/19 20:27 Dose: 150 mg Documented by: ALLERGIES [id number] inhibitor Adverse Reaction (Verified 11/17/19 12:28) cod liver oil Adverse Reaction (Verified 11/17/19 12:28) metoprolol succinate [From Toprol XL] Adverse Reaction (Verified 11/17/19 12:28) Penicillins Adverse Reaction (Verified 11/17/19 12:28) alpha blockers Adverse Reaction (Uncoded 11/17/19 12:28) beta blockers Adverse Reaction (Uncoded 11/17/19 12:28) DISCONTINUED MEDICATIONS STOP INDERAL 10 MG BID TAKE INDERAL 20 MG BID NEW PRESCRIPTIONS: NITROGLYCERIN 0.4 MG SL PRN CHEST PAIN INDERAL 20 MG BID SMOKING: ADVISED TO STOP SMOKING DISEASE SPECIFIC EDUCATION: ADVISED TO STOP DRINKING EFFECTS OF ALCOHOL WITH MEDICATIONS USE OF NITROGLYCERIN APPOINTMENT LAB REVIEW: 11/19/19 04:45 11/19/19 04:45 11/19/19 04:45: Sodium 136.5, Potassium 3.48 L, Chloride 102.5, Carbon Dioxide 27.7, Anion Gap 9.78, BUN 8.5 L, Creatinine 0.58 L, Estimated GFR (MDRD) 140.00, BUN/Creatinine Ratio 14.65, Glucose 102.1, Calcium 8.70, Total Bilirubin 0.43, AST 33.8, ALT 23.7, Alkaline Phosphatase 82.0, Total Protein 6.60, Albumin 3.93, Globulin 2.67, Albumin/Globulin Ratio 1.47 11/19/19 04:45: WBC 9.44, RBC 3.96 L, Hgb 13.0 L, Hct 36.8 L, MCV 92.9, MCH 32.8 H, MCHC 35.3, RDW Coeff of Josy 14.2, Plt Count 215, Immature Gran % (Auto) 0.7, Neut % (Auto) 49.3, Lymph % (Auto) 38.0, [place] % (Auto) 9.7, Eos % (Auto) 1.8, Baso % (Auto) 0.5, Immature Gran # (Auto) 0.1, Neut # (Auto) 4.6, Lymph # (Auto) 3.6 H, [place] # (Auto) 0.9, Eos # (Auto) 0.2, Baso # (Auto) 0.1 IMAGE REVIEW: DISCHARGE HOME DIET: HEART HEALTHY DIET ACTIVITY: MAY RESUME TOLERATED MAY RETURN TO CARDIAC REHAB ON October CONTINUE HOME MEDICATIONS AN APPOINTMENT IS SCHEDULED WITH DR. LUCIO/ELMA NAILS APRN ON October AT 2:15 PM CODE STATUS: FULL CODE MR. MCCARTHY IS ALERT AND ORIENTED X 4. HE IS FORGETFUL AT TIMES. A MMSE EXAMINATION WAS COMPLETED WITH THE PATIENT SCORING A 30/30. MR. MCCARTHY IS INDEPENDENT WITH ACTIVITIES OF DAILY LIVING. HE LIVES ALONE, BUT HIS DAUGHTER IS STAYING WITH HIM TEMPORARILY. HE IS CONTINENT OF BOWEL AND BLADDER. HE IS ABLE TO AMBULATE WITHOUT USE OF ASSISTIVE DEVICE OR STAFF ASSISTANCE. NO DIZZINESS OR CHEST PAIN/TIGHTNESS REPORTED DURING ACTIVITY OR AT REST. HE IS ABLE TO FEED HIMSELF. MEAL INTAKES ARE GOOD AT 100%. LIQUID INTAKE IS ADEQUATE. HYDRATION STATUS IS GOOD. SKIN IS INTACT AND FREE OF OPEN WOUNDS. MD ELMA TILLMAN APRN
[2019-11-19] MEDS: LIPITOR PO SCH (12:55)
--- NOTE | 2019-11-22 08:02 | ECHOSTRESS ---
Date of Exam: 11/19/2019 Ordering Physician: DR. JEFERSON LUCIO Reason for Echo: CHEST PAIN, HX CABG, HTN, CAD, HX ME, STRESS TEST--NO ISCHEMIA M-Mode Normal Adult Results LV Dimensions Normal Adult Results AoV Opening excursions >1.6 LVEDD-base- 3.5-5.8 Ao root dimensions 2.0-3.7 LVESD-base- 3.1-4.6 L. Atrium dimensions 1.9-3.8 Post. Wall thickness 0.8-1.1 IV septum (thickness) 0.7-1.2 Post. Wall excursion 0.72-1.3 Septal motion Systolic motion R. Ventricular cavity 1.5-2.0 LVEF 60% Paradoxical septal wall motion 2-D: HYPOKINETIC SEPTAL WALL AT REST--IMPROVEMENT IN SEPTAL MOTION WITH EXERCISE M-MODE: MV: AV: TV: PV: CHAMBER SIZE: WALL MOTION: HYPOKINETIC SEPTAL WALL AT REST--IMPROVEMENT IN SEPTAL MOTION WITH EXERCISE PERICARDIUM: INTERPRETATION: 1. HYPOKINETIC SEPTAL WALL AT REST--IMPROVEMENT IN SEPTAL MOTION WITH EXERCISE MTDD
--- NOTE | 2019-11-22 08:32 | ECHO2D ---
Date of Exam: 11/19/19 Ordering Physician: DR. JEFERSON LUCIO Room #: [id number] Reason for Echo: CHEST PAIN, CABG, HTN, CAD, HX TN M-Mode Normal Adult Results LV Dimensions Normal Adult Results AoV Opening excursions >1.6 >1.6 LVEDD-base- 3.5-5.8 4.8 Ao root dimensions 2.0-3.7 3.0 LVESD-base- 3.1-4.6 L. Atrium dimensions 1.9-3.8 3.1 Post. Wall thickness 0.8-1.1 1.2 IV septum (thickness) 0.7-1.2 1.2 Post. Wall excursion 0.72-1.3 NORMAL Septal motion 0.5 Systolic motion R. Ventricular cavity 1.5-2.0 NORMAL LVEF 60% 58% Paradoxical septal wall motion NORMAL 2-D : 2-D M Mode Echocardiogram was performed using apical four chamber and left parasternal long and short axis views. Mitral, tricuspid and aortic valves appear to be normal. Contractility of the left ventricle seems to be normal, so is the cavity size. Left atrial cavity size and aortic root appear to be normal. There is no pericardial effusion. There is no thrombus noted in the left ventricle or left atrial cavity. No mitral valve prolapse noted. HYPOKINETIC SEPTUM M-MODE: MV: NORMAL AV: NORMAL TV: NORMAL PV: CHAMBER SIZE: NORMAL WALL MOTION: HYPOKINETIC SEPTUM PERICARDIUM: NORMAL INTERPRETATION: 1. LEFT VENTRICULAR HYPERTROPHY BORDERLINE 2. HYPOKINETIC SEPTUM WITH EJECTION FRACTION 58% 3. NORMAL VALVES 4. NORMAL LEFT ATRIAL AND LEFT VENTRICLE SIZE MTDD
--- NOTE | 2019-11-22 09:11 | STRESSECHO ---
Date of Test: 11/19/2019 Ordering Physician: DR. JEFERSON LUCIO Occupation: RETIRED Reason for Exam: CHEST PAIN, CAD, HTN, CABG, HX [place] Smoking History: NONE Height: 68" Weight: 160 LBS Current Medications: LEVOTHYROXINE, ASA, ALPRAZOLAM, AMLODIPINE, PROPRANOLOL, CARDURA Resting EKG: SINUS RHYTHM/ NO ACUTE CHANGES Target Heart Rate: 130/153 S-T SEGMENT STAGE MPH/GRADE HEART RATE BPM BLOOD PRESSURE MMHG RHYTHM +/- ELEVATION DEPRESSION SYMPTOMS AT REST 58 BPM 138/68 MMHG SR X NONE 1 1.7/10% 85 BPM 150/60 MMHG SR X NONE 2 2.5/12% 94 BPM SR X NONE 3 3.4/14% 4 4.2/16% 5 5.0/18% Immediately After 100 BPM SR X TIRED/SHORT OF AIR Minutes Post Exercise 5:00 62 BPM 158/70 MMHG SR X NONE Minutes Post Exercise DURATION OF EXERCISE: 6:18 MAXIMUM HEART RATE REACHED: 100 BPM REASON FOR TERMINATION: TIRED/SHORT OF AIR 97% OXYGEN SATURATION WITH EXERCISE ON ROOM AIR METS 8.5 INTERPRETATION: 1. NO EVIDENCE OF ISCHEMIA FROM HEART RATE 58 BPM TO 100 BPM (ON BETA MARLENE) 2. METS 8.5 GOOD EXERCISE LEVEL ACHIEVED 3. NO ARRHYTHMIAS 4. BLOOD PRESSURE RESPONSE: ADEQUATE MILD SEPTAL WALL HYPOKINESIA AT REST AND WITH IMPROVEMENT IN WALL MOTION WITH EXERCISE SESTAMIBI TO FOLLOW MTDD
--- NOTE | 2019-11-23 08:41 | DS ---
DATE OF SERVICE: 11/19/2019 FINAL DIAGNOSIS: 1. CHEST PAIN, EXERTIONAL 2. NEAR SYNCOPAL EPISODES 3. HYPERTENSION 4. CARDIAC ARRHYTHMIAS WITH PACEMAKER 5. AK 6. DYSLIPIDEMIA 7. HYPOTHYROIDISM 8. NON-COMPLIANCE OF LIFESTYLE, MEDICATIONS AND RECOMMENDATIONS 9. ALCOHOL ABUSE 10.HISTORY OF TOBACCO USE 11.DEPRESSION, NO SUICIDAL TENDENCIES 12.HISTORY OF CONCUSSION 13.CABG, [id number], 2018 14.PACEMAKER LAST VITALS: Temp Pulse Resp BP Pulse Ox 98.4 F 68 18 130/76 95 11/19/19 05:07 11/19/19 05:07 11/19/19 05:07 11/19/19 05:07 11/19/19 05:07 DISCHARGE INSTRUCTIONS: DISCHARGE HOME. CONTINUE HOME MEDICATIONS. AN APPOINTMENT IS SCHEDULED WITH DR. LUCIO/ELMA NAILS APRN ON October AT 2:15 PM. CODE STATUS: FULL CODE. TAKE THESE MEDICATIONS AT HOME: Alprazolam (Xanax) 0.5 mg PO DAILY@0800 [facility] Last Admin: 11/19/19 10:07 Dose: 0.5 mg Documented by: Alprazolam (Xanax) 0.25 mg PO 1200,2100 [facility] Last Admin: 11/18/19 20:33 Dose: 0.25 mg Documented by: Amlodipine Besylate (Norvasc) 5 mg PO BID [facility] Last Admin: 11/19/19 09:54 Dose: 5 mg Documented by: Aspirin (Aspirin Chewable) 81 mg PO DAILYWM [facility] Last Admin: 11/19/19 09:54 Dose: 81 mg Documented by: Atorvastatin Calcium (Lipitor) 20 mg PO 1200 [facility] Last Admin: 11/18/19 11:50 Dose: 20 mg Documented by: Doxazosin Mesylate (Cardura) 4 mg PO DAILY [facility] Last Admin: 11/19/19 09:57 Dose: 4 mg Documented by: Furosemide (Lasix Tab) 20 mg PO QDAC [facility] Last Admin: 11/19/19 09:55 Dose: 20 mg Documented by: Levothyroxine Sodium (Synthroid) 50 mcg PO QDAC [facility] Last Admin: 11/19/19 09:55 Dose: 50 mcg Documented by: Nitroglycerin (Nitrostat) 0.4 mg SL Q5MIN X 3 DOSES PRN PRN Reason: Chest Pain (NEW RX) Non-Formulary Medication (Melatonin) 1 mg PO DAILY [facility] Last Admin: 11/19/19 09:56 Dose: Not Given Documented by: Propranolol HCl (Inderal) 20 mg PO BID [facility] Last Admin: 11/19/19 09:54 Dose: 20 mg Documented by: Ropinirole HCl (Requip) 3 mg PO BEDTIME [facility] Last Admin: 11/18/19 20:26 Dose: 3 mg Documented by: Venlafaxine HCl (Effexor Xr) 150 mg PO BEDTIME [facility] Last Admin: 11/18/19 20:27 Dose: 150 mg Documented by: ALLERGIES: [id number] inhibitor Adverse Reaction (Verified 11/17/19 12:28) cod liver oil Adverse Reaction (Verified 11/17/19 12:28) metoprolol succinate [From [employer]] Adverse Reaction (Verified 11/17/19 12:28) Penicillins Adverse Reaction (Verified 11/17/19 12:28) alpha blockers Adverse Reaction (Uncoded 11/17/19 12:28) beta blockers Adverse Reaction (Uncoded 11/17/19 12:28) DISCONTINUED MEDICATIONS: STOP INDERAL 10 MG BID TAKE INDERAL 20 MG BID NEW PRESCRIPTIONS: NITROGLYCERIN 0.4 MG SL PRN CHEST PAIN INDERAL 20 MG BID SMOKING: ADVISED TO STOP SMOKING DISEASE SPECIFIC EDUCATION: ADVISED TO STOP DRINKING EFFECTS OF ALCOHOL WITH MEDICATIONS USE OF NITROGLYCERIN APPOINTMENT LAB REVIEW: 11/19/19 04:45 11/19/19 04:45 11/19/19 04:45: Sodium 136.5, Potassium 3.48 L, Chloride 102.5, Carbon Dioxide 27.7, Anion Gap 9.78, BUN 8.5 L, Creatinine 0.58 L, Estimated GFR (MDRD) 140.00, BUN/Creatinine Ratio 14.65, Glucose 102.1, Calcium 8.70, Total Bilirubin 0.43, AST 33.8, ALT 23.7, Alkaline Phosphatase 82.0, Total Protein 6.60, Albumin 3.93, Globulin 2.67, Albumin/Globulin Ratio 1.47 11/19/19 04:45: WBC 9.44, RBC 3.96 L, Hgb 13.0 L, Hct 36.8 L, MCV 92.9, MCH 32.8 H, MCHC 35.3, RDW Coeff of Josy 14.2, Plt Count 215, Immature Gran % (Auto) 0.7, Neut % (Auto) 49.3, Lymph % (Auto) 38.0, [place] % (Auto) 9.7, Eos % (Auto) 1.8, Baso % (Auto) 0.5, Immature Gran # (Auto) 0.1, Neut # (Auto) 4.6, Lymph # (Auto) 3.6 H, [place] # (Auto) 0.9, Eos # (Auto) 0.2, Baso # (Auto) 0.1 DIET: HEART HEALTHY DIET ACTIVITY: MAY RESUME TOLERATED JANUARY RETURN TO CARDIAC REHAB ON October HOSPITAL COURSE: 69 year old white male was hospitalized with chest pain more like a jaw pain that happened while he was on the treadmill at cardiac rehab. The patient during the stay in the hospital was monitored and was ruled out to have AK or ischemia. He was up and about with no chest pain and no jaw pain. He was put on Hubert Protocol. The patient exercised very well with METS level close to 8 with no evidence of ST-T wave changes, no chest pain and no jaw pain and no arrhythmias. The patient's contractility on echo showed hypokinetic septal wall at rest with some improved septal motion with exercise. Considering the patient's other tests that were done during the stay in the hospital with sestamibi which was reported as negative for ischemia. The patient was discharged home in stable condition to be followed as an outpatient. Conclusion the patient stress echo sestamibi all three parts were negative, not indicative of any ischemia or coronary insufficiency. The patient is strongly advised to quit alcohol. He has been drinking in excess for a number of years. MMSE was done and report is pending. The patient was advised to increase his Inderal to 20mg twice a day and advised to continue the rest of the medication as before. CONDITION: Stable. TIME SPENT: More than 60 minutes. MTDD
--- NOTE | 2019-11-23 08:54 | PN ---
DATE OF SERVICE: 11/19/2019 SUBJECTIVE: The patient is up and about with no chest pain, no PND, no orthopnea and no palpitations. The patient has been given Thiamine. The patient doesn't have any withdraws. The daughter is present in the room. She also admitted that the patient has been drinking a lot. Also admitted counseling for alcoholism done but he refuses to joint any programs. He is going to try on his own to quit. REVIEW OF SYSTEMS: CONSTITUTIONAL: No night sweats. No fatigue, malaise, lethargy. No fever or chills. HEENT: Eyes: No visual changes. No eye pain. No eye discharge. ENT: No runny nose. No epistaxis. No sinus pain. No sore throat. No odynophagia. No congestion. RESPIRATORY: No cough, no congestion. No hemoptysis. No shortness of breath. CARDIOVASCULAR: No angina symptoms. No CHF symptoms. No atypical chest pain for CAD. No palpitations. No PND. No orthopnea. GASTROINTESTINAL: No abdominal pain. No nausea or vomiting. No diarrhea or constipation. No hematemesis. No hematochezia. GENITOURINARY: No urgency. No frequency. No dysuria. No hematuria. No obstructive symptoms. No discharge. No pain. No significant abnormal bleeding. MUSCULOSKELETAL: No musculoskeletal pain; no joint swelling. NEUROLOGICAL: No headache. No neck pain. No syncope. No seizures. No dizziness. PSYCHIATRIC: Not anxious. No depression. No suicidal thoughts. No homicidal thoughts. SKIN: No rash. No lesions. No wounds. ENDOCRINE: No unexplained weight loss. No weight gain. HEMATOLOGIC/LYMPHATIC: No anemia. No purpura. No petechiae. No prolonged or excessive bleeding. No palpable lymph nodes. PHYSICAL EXAMINATION: VITAL SIGNS: Temperature 98.4, pulse 68, respiratory rate 18, blood pressure 130/76 and pulse ox 95%. HEENT: Head normocephalic, atraumatic. Eyes: Extraocular muscles are intact. Pupils are equal, round and reactive to light and accommodation. Ears: No lesions. Nose appeared normal. Throat: No exudate or erythema. NECK: Supple. No JVD, no carotid bruit. No lymphadenopathy or thyromegaly. LUNGS:Decreased breath sounds but clear to auscultation. Percussion note normal. Chest symmetrical. HEART: S1, S2, no S3. No murmurs. No cyanosis or clubbing. No ascites. Pulses: Dorsalis pedis and posterior tibial pulses +1 to +2 bilaterally. ABDOMEN: Soft. Nontender. Bowel sounds active. No CVA tenderness. No mass felt. EXTREMITIES: No edema. Full range of motion of all extremities, equal. NEUROLOGIC: No focal deficit. Cranial nerves II through XII are grossly intact. No headache, no double vision or headache. SKIN: Not dry. Intact. Turgor - normal. LYMPHATIC: No palpable lymph nodes/no lymphedema. MUSCULOSKELETAL: Normal joints with no swelling. Muscle tone is normal. LABS: Hgb 13, hct 36, WBC 9,400 normal differentials, creatinine 0.5, BUN 8, potassium 3.4. ASSESSMENT: 1. Chest pain so far no evidence of acute WI or ischemia or coronary insufficiency 2. History of alcoholism 3. History of hypertension 4. History of dyslipidemia 5. Coronary bypass surgery PLAN: 1. Do echo and stress echo sestamibi 2. CAD risk factors discussed with the patient 3. The patient has pacemaker, advised to have it checked periodically as instructed. CONDITION: Stable. TIME SPENT: More than 30 minutes. Plan and coordination of the patient's care discussed in the presence of nurse. KEELY
--- NOTE | 2019-11-23 09:07 | PN ---
11/17/2019: Level 5 11/18/2019: Intermediate 11/19/2019: D as in discharge MTDD
== END 2019-11-19 13:47 | disposition home or self-care (01) | DRG 282 ==
LOC: ED 10:40 → MEDSURG B 15:25
PROVIDERS: ADMIT Internal Medicine; ATTEND Internal Medicine

== ENCOUNTER 2025-08-04 13:23 | Inpatient (IN) ==
--- NOTE | 2025-08-04 13:31 | ED.PDOC ---
General [facility] ED Provider: Dr. DIMITRI MADRIGAL MD Chief Complaint: Non-specific Complaint Stated Complaint: Patient is a 75-year-old male that reported to the emergency department for a syncopal episode. Patient stated that approximately 30 to 45 minutes prior to arrival he was at lunch and was sitting in a chair when a witness (his friend at bedside) stated that the patient slumped forward. Patient stated that he never completely lost consciousness however he felt like he could not move. Patient stated this lasted for approximately 30 minutes. Patient stated that this has happened 2-3 times this week. Patient stated that he did not have any chest pain, shortness of breath, or any preceding symptoms. Patient stated that he has not recently had any illness or has nor has he hit his head. Witnesses at bedside today stated that the patient's hands appeared to drawl up a little during his episode. EMS stated that they were told it was a seizure like activity however with a witnessed was not that of a seizure. Patient stated that he does have a history of bypass surgery, congestive heart failure, and hypertension. At bedside patient's vital signs were stable. Patient's GCS was 15. Patient was alert and oriented person, place, and time. Patient NIH score was 0. Time Seen by Provider: 08/04/25 13:30 Mode of Arrival: Ambulance Information Source: Patient and EMT Exam Limitations: No limitations Primary Care Provider: WOLFGANG SHARMA Nursing and Triage Documentation Reviewed and Agree: Yes Opioid Naive vs. Tolerant What is Opioid Naive?: *Opioid Naive implies the patient is not already taking opioids or not chronically receiving opioids on a daily basis. *PRN dosing is not "usually" associated with tolerance. *Patients are at higher risk of over-sedation and aspiration. What is Opioid Tolerant?: *Opioid Tolerance implies less than the expected response to an opioid. *Acquired tolerance is defined by the patient taking 60mg of oral morphine daily (or equianalgesic dose of another opioid) for 1 week or more. *Often associated with chronic pain. *May take more than usual dose to achieve desired pain control. Review of Systems Review Of Systems Constitutional: Reports No symptoms Cardiac: Reports Syncope All Other Systems: Reviewed and Negative [facility] Medical History Encounter for vaccination Z23 - Encounter for immunization (ICD-10) Alcohol abuse Refuses alcohol cessation F10.10 - Alcohol abuse, uncomplicated (ICD-10) Metabolic encephalopathy 2019 G93.41 - Metabolic encephalopathy (ICD-10) History of non-ST elevation myocardial infarction (NSTEMI) I25.2 - Old myocardial infarction (ICD-10) Right hip pain M25.551 - Pain in right hip (ICD-10) PTSD (post-traumatic stress disorder) F43.10 - Post-traumatic stress disorder, unspecified (ICD-10) Depressed skull fracture S02.91XA - Unspecified fracture of skull, initial encounter for closed fracture (ICD-10) Concussion S06.0X9A - Concussion with loss of consciousness of unspecified duration, initial encounter (ICD-10) Prostate cancer DR CANO q3m Last SEEN APRIL 21 C61 - Malignant neoplasm of prostate (ICD-10) Fracture, ribs Punctured lung S22.39XA - Fracture of one rib, unspecified side, initial encounter for closed fracture (ICD-10) Multiple allergies Z88.9 - Allergy status to unspecified drugs, medicaments and biological substances status (ICD-10) Family History Mother Stroke FATHER Stroke Other Alcohol intoxication Social History Smoking and tobacco status: Never smoker Alcohol intake: current Substance use type: does not use Special mookie needs: No Agree to transfusion: Yes Adopted: No Caregiver/support person: No Foster care: No Housing: house Lives independently: Yes Number of children: 3 service: No shelter: No Current occupational status: retired Pets and animals: No History of recent travel: No Sexually active: No Do you think of yourself as: straight/heterosexual Current gender identity: male Seatbelt use: always Drives intoxicated or rides with intoxicated clark driver: No Water heater temperature set < 120 degrees: Yes Working smoke detector in home: Yes Fire extinguisher in home: Yes Carbon monoxide detector in home: Yes Firearms in home: No Surgical History S/P CABG x 3 2019 - melani Z95.1 - Presence of aortocoronary bypass graft (ICD-10) History of genitourinary surgery prostate biopsy Z98.890 - Other specified postprocedural states (ICD-10) Status post appendectomy Z90.49 - Acquired absence of other specified parts of digestive tract (ICD- 10) Physical Exam Physical Exam Appearance: Reports Well-appearing Ill-appearing: Not Applicable Pain Distress: Not Applicable Eyes: Reports JACQUELIN and EOMI ENT: Reports Nose normal and Oropharynx normal Neck: Supple Respiratory: Reports Airway patent, Breath sounds clear, Breath sounds equal and Respirations nonlabored Cardiovascular: Reports RRR and Pulses normal GI/: Reports Soft, Nontender, No masses and Bowel sounds normal Musculoskeletal: Reports Normal strength, ROM intact and No edema Skin: Reports Warm, Dry and Normal color Neurological: Reports Sensation intact, Motor intact, Reflexes intact, Cranial nerves intact, Alert, Oriented and Other (NIH score of 0.) Psychiatric: Reports Affect appropriate and Mood appropriate Physician Progress Note Physician Progress Note: Patient is a 75-year-old male that reported to the emergency department for a syncopal episode. Patient stated that approximately 30 to 45 minutes prior to arrival he was at lunch and was sitting in a chair when a witness (his friend at bedside) stated that the patient slumped forward. Patient stated that he never completely lost consciousness however he felt like he could not move. Patient stated this lasted for approximately 30 minutes. Patient stated that this has happened 2-3 times this week. Patient stated that he did not have any chest pain, shortness of breath, or any preceding symptoms. Patient stated that he has not recently had any illness or has nor has he hit his head. Witnesses at bedside today stated that the patient's hands appeared to drawl up a little during his episode. EMS stated that they were told it was a seizure like activity however with a witnessed was not that of a seizure. Patient stated that he does have a history of bypass surgery, congestive heart failure, and hypertension. At bedside patient's vital signs were stable. Patient's GCS was 15. Patient was alert and oriented person, place, and time. Patient NIH score was 0. - Will order EKG, chest x-ray, and troponin to rule out cardiac as the cause of patient's syncopal episode with clinical suspicion of TIA. -Will order CTA of the head and neck to rule out CVA versus TIA. - Will order baseline labs. - EKG shows normal sinus rhythm with a ventricular rate of 69 bpm. No acute STEMI noted. EKG interpreted by ER physician. - CMP shows the patient is hyponatremic with a sodium of 129 and dehydrated with a creatinine of 1.21. Will give IV normal saline 1 L. - CBC shows anemia of chronic disease. - Chest x-ray shows Left anterior chest wall cardiac pacer. Trachea is midline. Cardiomediastinal silhouette is unchanged. Atherosclerosis of the aorta. Sternotomy wires. Atelectasis in the left lung base. No pneumothorax or large pleural effusions. Degenerative changes. Scoliosis. Remote right-sided fractures. This was interpreted by radiology. - Patient's blood pressures come up to 214/108. Will give the patient IV nicardipine 5 mg an hour drip. -Patient's blood pressure came down to 167/87 prior to starting the nicardipine drip. Will continue to monitor patient's blood pressure and not start the IV nicardipine 5 mg/hr drip at this time. - CTA of the head showed No acute intracranial abnormality. No high-grade stenosis or occlusion in the head. This was interpreted by the radiologist. - CTA of the neck showed moderate proximal right internal carotid artery stenosis. This was interpreted by the radiologist. -([phone]) attempted to contact the hospitalist for admission - waiting for callback. -([phone]) spoke to hospitalist at [facility], Guilherme Andujar NP, and discussed the patient's TIA, hypertension, and other history of present illness findings and lab and radiograph findings. She has agreed to admit this patient for observation with telemetry. Patient's vital signs are stable at time of admission. Course Course 08/04/25 13:37 08/04/25 13:37 Orders, Labs, Meds: Lab Review 08/04/25 13:37 WBC 8.08 RBC 3.13 L Hgb 10.8 L Hct 32.7 L MCV 104.5 H MCH 34.5 H MCHC 33.0 RDW Coeff of Josy 12.4 Plt Count 242 Immature Gran % (Auto) 0.4 Neut % (Auto) 61.7 Lymph % (Auto) 26.9 [place] % (Auto) 7.9 Eos % (Auto) 2.2 Baso % (Auto) 0.9 Neut # (Auto) 5.0 Lymph # (Auto) 2.2 [place] # (Auto) 0.6 Eos # (Auto) 0.2 Baso # (Auto) 0.1 Immature Gran # (Auto) 0.0 Sodium 129.9 L Potassium 4.31 Chloride 100.2 Carbon Dioxide 25.7 Anion Gap 8.31 BUN 19.2 Creatinine 1.18 H Estimated GFR (MDRD) 61.00 BUN/Creatinine Ratio 16.27 Glucose 140.5 H Calcium 8.36 L Total Bilirubin 0.65 AST 24.2 ALT 15.2 Alkaline Phosphatase 53.8 L Troponin I < 0.012 Total Protein 6.27 L Albumin 3.78 Globulin 2.49 Albumin/Globulin Ratio 1.51 Orders Category Date Time Status EKG-(ED & IP/OBS ONLY) Stat CARDIO 08/04/25 13:28 Completed NPO REMINDER: IMAGING ONCE CARE 08/04/25 14:17 Active CBC W/ AUTO DIFF Stat LAB 08/04/25 13:37 Completed CMP [COMPREHENSIVE METABOLIC PANEL] Stat LAB 08/04/25 13:37 Completed TROPONIN I Stat LAB 08/04/25 13:37 Completed Iohexol [Omnipaque 350 mg/ml 100Ml] Meds 08/04/25 14:47 Discontinued 100 ml IVP ONCE ONE Nicardipine in NaCl, Iso-Osm [Cardene 20 mg/200 ml 0.9% Meds 08/04/25 16:00 Active NaCl] 20 mg in 200 ml IV TITRATION Sodium Chloride 0.9% [Sodium Chloride] 1,000 ml Meds 08/04/25 14:22 Active IV ONCE CHEST, 1V AP ONLY Stat RADS 08/04/25 13:29 Completed CTA ANGIO HEAD Stat RADS 08/04/25 14:17 Completed CTA ANGIO NECK Stat RADS 08/04/25 14:17 Completed Medications Generic Name Dose Route Start Last Admin Trade Name Freq PRN Reason Stop Dose Admin Sodium Chloride 1,000 mls @ 250 mls/hr 08/04/25 14:22 08/04/25 14:38 Sodium Chloride IV 08/04/25 18:21 250 mls/hr ONCE ONE Administration Nicardipine/Sodium Chloride 20 mg in 200 mls @ 50 mls/hr 08/04/25 16:00 Cardene 20 Mg/200 Ml 0.9%Nacl IV TITRATION DAVION Protocol 5 MG/HR Discontinued Medications Generic Name Dose Route Start Last Admin Trade Name Freq PRN Reason Stop Dose Admin Iohexol 100 ml 08/04/25 14:47 08/04/25 14:57 Iohexol 350 Mg/Ml 100ml IVP 08/04/25 14:48 100 ml ONCE ONE Administration Vital Signs: Temp Pulse Resp BP Pulse Ox 08/04/25 13:33 98.0 F 70 15 140/69 96 JONATHAN Risk Score JONATHAN Risk Score: Risk Score Odds of by 30D 0 0.1 (0.1-0.2) 1 0.3 (0.2-0.3) 2 0.4 (0.3-0.5) 3 0.7 (0.6-0.9) 4 1.2 (1.0-1.5) 5 2.2 (1.9-2.6) 6 3.0 (2.5-3.6) 7 4.8 (3.8-6.1) Discharge Plan Discharge Patient Disposition: PLACED OBSERVATION Discharge Problem: TIA (transient ischemic attack), Hyponatremia, Anemia of chronic disease, Essential hypertension Fracture of rib Qualifiers: Encounter type: initial encounter Rib fracture type: single rib Fracture type: closed Laterality: right Qualified Code(s): S22.31XA - Fracture of one rib, right side, initial encounter for closed fracture Did you review [place] JEWEL OLIVING MACHINE OPERATOR for ALL controlled substances?: Not Applicable ED Provider: DIMITRI MADRIGAL Condition: Stable
[2025-08-04 13:52] LABS: IMMATURE GRANULOCYTE # (AUTO) 0.0 (0.0-1.0); IMMATURE GRANULOCYTE % (AUTO) 0.4 % (0.0-5.0); RDW COEFFICIENT OF VARIATION 12.4 % (11.6-14.8)
[2025-08-04 14:04] LABS: CREATININE 1.18 mg/dL (0.60-1.10)
[2025-08-04] MEDS: SODIUM CHLORIDE 1,000 ML IV ONE (14:38)
--- NOTE | 2025-08-04 14:54 | DI ---
EXAM: CHEST RADIOGRAPH; SINGLE VIEW HISTORY: Dizziness COMPARISON: Chest radiograph 04/19/2025. FINDINGS/IMPRESSION: Left anterior chest wall cardiac pacer. Trachea is midline. Cardiomediastinal silhouette is unchanged. Atherosclerosis of the aorta. Sternotomy wires. Atelectasis in the left lung base. No pneumothorax or large pleural effusions. Degenerative changes. Scoliosis. Remote right-sided fractures.
[2025-08-04] MEDS: OMNIPAQUE 350 MG/ML 100ML IVP ONE (14:57)
--- NOTE | 2025-08-04 15:53 | CT ---
EXAM: NECK CTA WITHOUT AND WITH CONTRAST HISTORY: Transient ischemic attack TECHNIQUE: CTA of the neck without and with IV contrast administration. CT dose reduction techniques performed: Yes. Coronal and sagittal reconstructions were performed. MIP/VR/3-D images were provided. All reported proximal ICA stenoses are calculated based upon the distal ICA diameter (NASCET criteria). COMPARISON: None FINDINGS: Common carotid arteries are patent. 55% stenosis of the proximal right cervical internal carotid artery due to calcified plaque. Left internal carotid artery patent. Bilateral vertebral arteries are patent. No aneurysm or dissection. IMPRESSION: Moderate stenosis of the proximal right cervical internal carotid artery. All CT scans are performed using dose optimization techniques as appropriate to the performed exam and include at least one of the following: Automated exposure control, adjustment of the mA and/or kV according to size, and the use of iterative reconstruction technique.
--- NOTE | 2025-08-04 15:57 | CT ---
EXAM: HEAD/BRAIN CTA WITHOUT AND WITH IV CONTRAST. PRE AND POST CONTRAST SCANS WERE PERFORMED. HISTORY: Transient ischemic attack TECHNIQUE: CTA of the head/brain prior to and following IV contrast administration. CT dose reduction techniques performed: Yes. Coronal and sagittal reconstructions were performed. MIP/VR/3-D images were provided. COMPARISON: CT head 04/19/2025 FINDINGS: Noncontrast CT head: No acute infarction, hemorrhage, or mass lesion.No skull fracture. Paranasal sinuses and mastoid aircells clear. CTA head: Intracranial internal carotid arteries, anterior cerebral arteries, and middle cerebral arteries are within normal limits. Intracranial vertebral arteries, basilar artery, and posterior cerebral arteries are within normal limits. No aneurysm, vascular malformation, or high grade stenosis/occlusion. Impression: No acute intracranial abnormality. No high-grade stenosis or occlusion in the head. If ongoing concern for acute intracranial pathology, brain MRI would be recommended. All CT scans are performed using dose optimization techniques as appropriate to the performed exam and include at least one of the following: Automated exposure control, adjustment of the mA and/or kV according to size, and the use of iterative reconstruction technique.
[2025-08-04] MEDS ORDERED: TYLENOL PO PRN (16:32)
[2025-08-04] MEDS ORDERED: ATIVAN IVP PRN ×2 (16:47)
[2025-08-04] MEDS ORDERED: ATIVAN PO PRN ×2 (16:47)
[2025-08-04] MEDS ORDERED: ZOFRAN SDV IVP PRN (16:47)
[2025-08-04 16:50] LABS: GLUCOSE, URINE (UA) Negative (NEGATIVE); LEUKOCYTE ESTERASE ,URINE Negative (NEGATIVE); URINE, BLOOD Negative (NEGATIVE)
[2025-08-04 16:57] LABS: CHOL/HDL RATIO 2.0 (4.5-6.4); VLDL CHOLESTEROL 27 mg/dL (2-30)
[2025-08-04 16:59] LABS: BLOOD ALCOHOL < 10.0 mg/dL (0.0-50.0)
[2025-08-04 17:00] LABS: AMPHETAMINE SCREEN,URINE NEGATIVE (NEGATIVE); CANNABINOID SCREEN,URINE NEGATIVE (NEGATIVE); COCAIN SCREEN,URINE NEGATIVE (NEGATIVE); METHADONE URINE SCREEN NEGATIVE (NEGATIVE); METHAMPHETAMINES SCREEN,URINE NEGATIVE (NEGATIVE); OXYCODONE URINE SCREEN NEGATIVE (NEGATIVE); TRICYCLIC ANTIDEPRESSANTS URIN NEGATIVE (NEGATIVE)
[2025-08-04 18:27] VITALS: BMI 22.2
[2025-08-04] MEDS: HYDRALAZINE HCL IVP PRN (18:36)
[2025-08-04] MEDS: FOLIC ACID PO SCH (18:36)
[2025-08-04] MEDS: THIAMINE PO SCH (18:36)
[2025-08-04] MEDS: MULTIVITAMIN TABLET PO SCH (18:36)
[2025-08-04] MEDS: SODIUM CHLORIDE 1,000 ML IV SCH (18:47)
[2025-08-04] MEDS: CARDIZEM PO SCH (21:00)
[2025-08-04] MEDS: XANAX PO SCH (21:01)
[2025-08-05 05:26] LABS: IMMATURE GRANULOCYTE # (AUTO) 0.0 (0.0-1.0); IMMATURE GRANULOCYTE % (AUTO) 0.4 % (0.0-5.0); RDW COEFFICIENT OF VARIATION 12.4 % (11.6-14.8)
[2025-08-05 05:39] LABS: CREATININE 0.87 mg/dL (0.60-1.10)
[2025-08-05] MEDS: SYNTHROID PO SCH (05:44)
[2025-08-05] MEDS: CARDURA PO SCH (08:25)
[2025-08-05] MEDS: EFFEXOR XR PO SCH (08:25)
[2025-08-05] MEDS: ASPIRIN CHEWABLE PO SCH (08:25)
[2025-08-05] MEDS: COZAAR PO SCH (08:26)
[2025-08-05] MEDS: LIPITOR PO SCH (08:26)
[2025-08-05] MEDS: MOTRIN PO PRN (11:00)
[2025-08-05 13:20] LABS: CREATININE 0.8 mg/dL (0.60-1.10)
--- NOTE | 2025-08-05 14:01 | PCM ---
Date of Service Date Seen by Provider: 08/05/25 Time Seen by Provider: 08:30 Admit Day/Time Admission Date: 08/04/25 Reason for Admission Chief Complaint: TIA, HTN, HYPONATREMIA Hospital Provider Hospital Provider: HERI CRUM, [facility] [place] Primary Care Physician Primary Care Physician: WOLFGANG SHARMA History of Present Illness History of Present Illness: 75 yo male with h alcohol abuse, chronic anemia, HTN, BPH, thyroid disease, medication noncompliance presented to the ER from [facility] following a questionable seizure/syncope episode/TIA. Patient was sitting at a table with someone and slumped over and had jerking movements to one of his arms. Patient reported to me and the ER provider he has been having these episodes for "years" and he basically feels as if he is "unplugged". Denies loss of consciousness and does remember the episodes. Denies chest pain, sob, palpitations, loss of bowel or bladder control. Upon discussion, he is unable to answer questions appropriately and lacks the ability to carry on meaningful conversation. Per staff veterinarian that has spoken with family members, he does have good days and bad days with his memory and this has been worsening for quite some time. He has had dizzy episodes and memory loss. Last saw [facility] back in April of this year and attributed the symptoms to his long-term alcohol use. He also was ordered an echo, carotid ultrasound, holter monitor, and EEG to be completed but the office was unable to contact the patient for these orders to be fullfilled. In ER, head CT and CTA head and neck were negative for acute findings. Does have carotid stenosis on one side that is not new and is currently reading at 55%. UA negative. No white blood cell count. Sodium was low at 129. and BP was elevated with systolic in the 200s. Admitted to med/surg observation. Case Discussed With Case Discussed With: Patient's case was discussed with the ER Physicians, Dr. Andrews. [facility] Medical History Encounter for vaccination Z23 - Encounter for immunization (ICD-10) Alcohol abuse Refuses alcohol cessation F10.10 - Alcohol abuse, uncomplicated (ICD-10) Metabolic encephalopathy 2018 G93.41 - Metabolic encephalopathy (ICD-10) History of non-ST elevation myocardial infarction (NSTEMI) I25.2 - Old myocardial infarction (ICD-10) Right hip pain M25.551 - Pain in right hip (ICD-10) PTSD (post-traumatic stress disorder) F43.10 - Post-traumatic stress disorder, unspecified (ICD-10) Depressed skull fracture S02.91XA - Unspecified fracture of skull, initial encounter for closed fracture (ICD-10) Concussion S06.0X9A - Concussion with loss of consciousness of unspecified duration, initial encounter (ICD-10) Prostate cancer DR CANO q3m Last SEEN APRIL 21 C61 - Malignant neoplasm of prostate (ICD-10) Fracture, ribs Punctured lung S22.39XA - Fracture of one rib, unspecified side, initial encounter for closed fracture (ICD-10) Multiple allergies Z88.9 - Allergy status to unspecified drugs, medicaments and biological substances status (ICD-10) Surgical History S/P CABG x 3 2018 - melani Z95.1 - Presence of aortocoronary bypass graft (ICD-10) History of genitourinary surgery prostate biopsy Z98.890 - Other specified postprocedural states (ICD-10) Status post appendectomy Z90.49 - Acquired absence of other specified parts of digestive tract (ICD- 10) Family History Mother Stroke FATHER Stroke Other Alcohol intoxication Social History Smoking and tobacco status: Never smoker Alcohol intake: current Substance use type: does not use Special mookie needs: No Agree to transfusion: Yes Adopted: No Caregiver/support person: No Foster care: No Housing: house Lives independently: Yes Number of children: 3 service: No jail: No Current occupational status: retired Pets and animals: No History of recent travel: No Sexually active: No Do you think of yourself as: straight/heterosexual Current gender identity: male Seatbelt use: always Drives 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 coin machines: No Water heater temperature set < 120 degrees: Yes Working smoke detector in home: Yes Fire extinguisher in home: Yes Carbon monoxide detector in home: Yes Firearms in home: No Allergies Allergies Allergy/AdvReac Type Severity Reaction Status Date / Time Alpha 1 Ezra- Quinazolines Allergy Rash Verified 08/04/25 16:02 [id number] inhibitor Allergy Rash Verified 08/04/25 16:02 Beta-Blockers Allergy Rash Verified 08/04/25 16:02 (Beta-Adrenergic Bloc cod liver oil Allergy Rash Verified 08/04/25 16:02 metoprolol succinate (From Allergy Rash Verified 08/04/25 16:02 Toprol XL) Penicillins Allergy Rash Verified 08/04/25 16:02 Current Medications Home Medications Acetaminophen (Acetaminophen 325 Mg Tablet) 650 mg PO Q4H PRN PRN Reason: Mild Pain Alprazolam (Alprazolam 0.5 Mg Tablet) 0.5 mg PO BID [facility] Last Admin: 08/05/25 08:26 Dose: 0.5 mg Aspirin (Aspirin 81 Mg Tab.Chew) 81 mg PO DAILYWM2 [facility] Last Admin: 08/05/25 08:25 Dose: 81 mg Atorvastatin Calcium (Atorvastatin Calcium 20 Mg Tablet) 20 mg PO DAILY [facility] Last Admin: 08/05/25 08:26 Dose: 20 mg Diltiazem HCl (Diltiazem Hcl 60 Mg Tablet) 60 mg PO 2XD [facility] Last Admin: 08/05/25 08:26 Dose: 60 mg Doxazosin Mesylate (Doxazosin Mesylate 2 Mg Tablet) 4 mg PO DAILY [facility] Last Admin: 08/05/25 08:25 Dose: 4 mg Folic Acid (Folic Acid 1 Mg Tablet) 1 mg PO DAILY [facility] Last Admin: 08/05/25 08:25 Dose: 1 mg Hydralazine HCl (Hydralazine Hcl 20 Mg/Ml Sdv) 10 mg IVP Q6H PRN PRN Reason: Hypertension Last Admin: 08/04/25 18:36 Dose: 10 mg Sodium Chloride (Sodium Chloride) 1,000 mls @ 75 mls/hr IV .[id number] [facility] Last Admin: 08/05/25 07:14 Dose: 75 mls/hr Ibuprofen (Ibuprofen 600 Mg Tablet) 600 mg PO Q6H PRN PRN Reason: Mild Pain Last Admin: 08/05/25 11:00 Dose: 600 mg Levothyroxine Sodium (Levothyroxine Sodium 50 Mcg Tablet) 50 mcg PO 0630 [facility] Last Admin: 08/05/25 05:44 Dose: 50 mcg Lorazepam (Lorazepam Inj 2 Mg/Ml Vial) 1 mg IVP Q2HR PRN PRN Reason: Withdrawal Lorazepam (Lorazepam Inj 2 Mg/Ml Vial) 2 mg IVP Q1HR PRN PRN Reason: Withdrawal Lorazepam (Lorazepam Inj 2 Mg/Ml Vial) 2 mg IVP Q15MIN PRN PRN Reason: Withdrawal Lorazepam (Lorazepam 1 Mg Tablet) 1 mg PO Q2HR PRN PRN Reason: Withdrawal Lorazepam (Lorazepam 1 Mg Tablet) 2 mg PO Q1HR PRN PRN Reason: Withdrawal Losartan Potassium (Losartan Potassium 100 Mg Tablet) 100 mg PO DAILY [facility] Last Admin: 08/05/25 08:26 Dose: 100 mg Multivitamins (Multivitamin 1 Tab) 1 tab PO DAILY [facility] Last Admin: 08/05/25 08:26 Dose: 1 tab Ondansetron HCl (Ondansetron Hcl/Pf 4 Mg/2 Ml Sdv) 4 mg IVP Q6H PRN PRN Reason: Nausea / Vomiting Thiamine HCl (Vitamin B-1 100 Mg Tablet) 100 mg PO DAILY [facility] Last Admin: 08/05/25 08:26 Dose: 100 mg Venlafaxine HCl (Venlafaxine Hcl 75 Mg Cap.Er.24h) 150 mg PO DAILY [facility] Last Admin: 08/05/25 08:25 Dose: 150 mg furosemide 20 mg tablet 20 mg PO DAILY #90 tabs 08/16/24 [Rx Confirmed 08/04/25] potassium chloride 10 mEq tablet,extended release 10 meq PO DAILY #90 tabs 11/03/24 [Rx Confirmed 08/04/25] meclizine 25 mg chewable tablet (Antivert) 25 mg PO BID PRN dizziness #14 tabs 12/31/24 [Rx Confirmed 08/04/25] alprazolam 0.5 mg tablet 0.5 mg PO BID #60 tabs 07/07/25 [Rx Confirmed 08/04/25] clotrimazole 1 % topical cream 1 applic topical BID 2 weeks #30 grams 07/07/25 [Rx Confirmed 08/04/25] aspirin 81 mg chewable tablet 81 mg PO DAILY #90 tabs 08/02/25 [Rx Confirmed 08/04/25] atorvastatin 20 mg tablet 20 mg PO DAILY #90 tabs 08/02/25 [Rx Confirmed 08/04/25] diltiazem HCl 60 mg tablet 60 mg PO 2XD #180 tabs 08/02/25 [Rx Confirmed 08/04/25] doxazosin 4 mg tablet 4 mg PO DAILY #30 tabs 08/02/25 [Rx Confirmed 08/04/25] levothyroxine 50 mcg tablet 50 mcg PO QDAC #90 tabs 08/02/25 [Rx Confirmed 1 10/04/24] losartan 50 mg-hydrochlorothiazide 12.5 mg tablet 1 tab PO DAILY #90 tabs 08/02/25 [Rx Confirmed 08/04/25] triamcinolone acetonide 0.1 % topical cream 1 applic topical BID PRN skin rash 2 weeks #80 grams 08/02/25 [Rx Confirmed 08/04/25] venlafaxine 150 mg capsule,extended release 24 hr 150 mg PO DAILY #90 caps 08/02/25 [Rx Confirmed 08/04/25] losartan 100 mg tablet 100 mg PO DAILY 08/04/25 [History Confirmed 08/04/25] Opioid Naive vs. Tolerant Does Patient Take Opioids?: Yes Is Patient Opioid Naive?: No What is Opioid Naive?: *Opioid Naive implies the patient is not already taking opioids or not chronically receiving opioids on a daily basis. *PRN dosing is not "usually" associated with tolerance. *Patients are at higher risk of over-sedation and aspiration. Is Patient Opioid Tolerant?: No What is Opioid Tolerant?: *Opioid Tolerance implies less than the expected response to an opioid. *Acquired tolerance is defined by the patient taking 60mg of oral morphine daily (or equianalgesic dose of another opioid) for 1 week or more. *Often associated with chronic pain. *May take more than usual dose to achieve desired pain control. Review of Systems Constitutional: Reports No symptoms Head: Reports Normocephalic Eyes: Reports No symptoms Ears: Reports No symptoms Nose: Reports No symptoms Mouth: Reports No symptoms Throat: Reports No symptoms Cardiovascular: Reports Syncope (questionable) Respiratory: Reports No symptoms Gastrointestinal: Reports No symptoms Genitourinary: Reports No Symptoms Musculoskeletal: Reports No symptoms Endocrine: Reports No symptoms Hematology: Reports No symptoms Immunology: Reports No symptoms Neurological: Reports Seizure (questionable) Psychiatric: Reports No symptoms Physical examination Most Recent Vital Signs: Most Recent Vital Signs Temperature 97.2 F L 08/05/25 10:00 Temperature Source Temporal Artery Scan 08/05/25 10:00 Temperature Source Infrared 08/04/25 13:33 Pulse Rate 93 08/05/25 10:00 Respiratory Rate 16 08/05/25 10:00 Blood Pressure 145/91 H 08/05/25 10:00 Blood Pressure Mean 109 08/05/25 10:00 Blood Pressure Left Arm 220/131 08/04/25 17:50 Blood Pressure Right Arm 230/133 08/04/25 17:50 Blood Pressure Location Right Arm 08/05/25 10:00 Blood Pressure Position Supine 08/05/25 04:50 O2 Sat by Pulse Oximetry 98 08/05/25 10:00 Oxygen Delivery Method Room Air 08/05/25 13:00 Height 5 ft 8 in 08/04/25 17:50 Weight 66.3 kg 08/04/25 17:50 Telemetry Type Remote Telemetry 08/05/25 13:00 Telemetry Monitoring Continues 08/05/25 13:00 Telemetry Heart Rate 64 08/05/25 13:00 EKG HI Interval 0.19 08/05/25 07:00 EKG QRS Interval 0.07 08/05/25 13:00 Telemetry Strip Reading Atrial Paced 08/05/25 13:00 Appearance: Positive No Apparent Distress Skin: Positive Warm and Good Color HEENT: Positive Normocephalic and PERRLA Neck: Positive Supple and Midline Trachea Chest/Lungs: Positive Symmetrical With Equal Breath Sounds, Clear to Auscultation Bilaterally and Good Air Movement all 4 Lung Fuchs; Negative Rales, Rhonci or Wheezes Heart: Positive RRR and Pulses Normal GI/: Positive Soft, Nontender, Bowel Sounds Normal and No Distention Musculoskeletal: Positive Not Examined Extremities: Positive Intact Peripheral Pulses, Stable Joints Without Laxity and Good ROM in All Joints; Negative Edema Neurological: Positive Sensation Intact, Motor intact, Reflexes Intact, Cranial Nerves Intact, Alert, Oriented (person time), Disorinted (place situation) and Muscle Strength 5/5 in Upper and Lower Extremities Bilaterally; Negative Focal Deficit Psychiatric: Negative Intact Memory, Good Short-Term Recall, Good Long-Term Recall, Normal Judgement or Normal Insight Labs This Visit Labs This Visit: Labs This Visit 08/04/25 08/04/25 08/04/25 13:37 14:30 16:45 WBC 8.08 RBC 3.13 L Hgb 10.8 L Hct 32.7 L MCV 104.5 H MCH 34.5 H MCHC 33.0 RDW Coeff of Josy 12.4 Plt Count 242 Immature Gran % (Auto) 0.4 Neut % (Auto) 61.7 Lymph % (Auto) 26.9 [place] % (Auto) 7.9 Eos % (Auto) 2.2 Baso % (Auto) 0.9 Neut # (Auto) 5.0 Lymph # (Auto) 2.2 [place] # (Auto) 0.6 Eos # (Auto) 0.2 Baso # (Auto) 0.1 Immature Gran # (Auto) 0.0 Sodium 129.9 L Potassium 4.31 Chloride 100.2 Carbon Dioxide 25.7 Anion Gap 8.31 BUN 19.2 Creatinine 1.18 H Estimated GFR (MDRD) 61.00 BUN/Creatinine Ratio 16.27 Glucose 140.5 H Calcium 8.36 L Total Bilirubin 0.65 AST 24.2 ALT 15.2 Alkaline Phosphatase 53.8 L Troponin I < 0.012 < 0.012 Total Protein 6.27 L Albumin 3.78 Globulin 2.49 Albumin/Globulin Ratio 1.51 Triglycerides 135.1 Cholesterol 138.1 LDL Cholesterol, Calc 41 VLDL Cholesterol 27 HDL Cholesterol 70.2 H Cholesterol/HDL Ratio 2.0 L Urine Color Light Urine Clarity Clear Urine pH 7.0 Ur Specific [place] 1.010 Urine Protein Negative Urine Glucose (UA) Negative Urine Ketones Negative Urine Blood Negative Urine Nitrite Negative Urine Bilirubin Negative Urine Urobilinogen 0.2 Ur Leukocyte Esterase Negative Urine Opiates Screen Negative Ur Oxycodone Screen Negative Urine Methadone Screen Negative Ur Barbiturates Screen Negative U Tricyclic Antidepress Negative Ur Phencyclidine Scrn Negative Ur Amphetamine Screen Negative U Methamphetamines Scrn Negative U Benzodiazepines Scrn Positive H Urine Cocaine Screen Negative U Cannabinoids Screen Negative Plasma/Serum Alcohol < 10.0 08/05/25 08/05/25 04:56 13:02 WBC 7.28 RBC 2.92 L Hgb 10.1 L Hct 30.1 L MCV 103.1 H MCH 34.6 H MCHC 33.6 RDW Coeff of Josy 12.4 Plt Count 226 Immature Gran % (Auto) 0.4 Neut % (Auto) 46.3 Lymph % (Auto) 37.9 [place] % (Auto) 9.6 Eos % (Auto) 5.1 Baso % (Auto) 0.7 Neut # (Auto) 3.4 Lymph # (Auto) 2.8 [place] # (Auto) 0.7 Eos # (Auto) 0.4 Baso # (Auto) 0.1 Immature Gran # (Auto) 0.0 Sodium 131.5 L 131.9 L Potassium 4.19 4.04 Chloride 104.8 104.4 Carbon Dioxide 25.1 25.0 Anion Gap 5.79 6.54 BUN 17.5 16.5 Creatinine 0.87 0.80 Estimated GFR (MDRD) 86.00 95.00 BUN/Creatinine Ratio 20.11 20.62 Glucose 95.6 130.4 H Calcium 7.99 L 8.48 Total Bilirubin 0.52 AST 24.5 ALT 12.5 Alkaline Phosphatase 57.7 Troponin I Total Protein 5.64 L Albumin 3.23 L Globulin 2.41 Albumin/Globulin Ratio 1.34 Triglycerides Cholesterol LDL Cholesterol, Calc VLDL Cholesterol HDL Cholesterol Cholesterol/HDL Ratio Urine Color Urine Clarity Urine pH Ur Specific [place] Urine Protein Urine Glucose (UA) Urine Ketones Urine Blood Urine Nitrite Urine Bilirubin Urine Urobilinogen Ur Leukocyte Esterase Urine Opiates Screen Ur Oxycodone Screen Urine Methadone Screen Ur Barbiturates Screen U Tricyclic Antidepress Ur Phencyclidine Scrn Ur Amphetamine Screen U Methamphetamines Scrn U Benzodiazepines Scrn Urine Cocaine Screen U Cannabinoids Screen Plasma/Serum Alcohol Imaging Imaging: EXAM: HEAD/BRAIN CTA WITHOUT AND WITH IV CONTRAST. PRE AND POST CONTRAST SCANS WERE PERFORMED. HISTORY: Transient ischemic attack TECHNIQUE: CTA of the head/brain prior to and following IV contrast administration. CT dose reduction techniques performed: Yes. Coronal and sagittal reconstructions were performed. MIP/VR/3-D images were provided. COMPARISON: CT head 04/19/2025 FINDINGS: Noncontrast CT head: No acute infarction, hemorrhage, or mass lesion.No skull fracture. Paranasal sinuses and mastoid aircells clear. CTA head: Intracranial internal carotid arteries, anterior cerebral arteries, and middle cerebral arteries are within normal limits. Intracranial vertebral arteries, basilar artery, and posterior cerebral arteries are within normal limits. No aneurysm, vascular malformation, or high grade stenosis/occlusion. Impression: No acute intracranial abnormality. No high-grade stenosis or occlusion in the head. If ongoing concern for acute intracranial pathology, brain MRI would be recommended. EXAM: NECK CTA WITHOUT AND WITH CONTRAST HISTORY: Transient ischemic attack TECHNIQUE: CTA of the neck without and with IV contrast administration. CT dose reduction techniques performed: Yes. Coronal and sagittal reconstructions were performed. MIP/VR/3-D images were provided. All reported proximal ICA stenoses are calculated based upon the distal ICA diameter (NASCET criteria). COMPARISON: None FINDINGS: Common carotid arteries are patent. 55% stenosis of the proximal right cervical internal carotid artery due to calcified plaque. Left internal carotid artery patent. Bilateral vertebral arteries are patent. No aneurysm or dissection. IMPRESSION: Moderate stenosis of the proximal right cervical internal carotid artery. EKG Interpretation EKG Interpretation: NSR, rate 69, no acute changes Review Statement Review Statement: I have independently reviewed and interpreted the labs/EKGs/imaging that were ordered by the ER provider. I have reviewed all outside records that are available currently in our EMR including imaging/notes/labs from previous visits. Plan Plan: 1. Syncope/TIA - imaging negative, troponins negative, UA negative, no labs indicative of hepatic encephalopathy, unable to complete MRI due to pacemaker, avoid neurologically altering agents, neurochecks Q4H 2. Hyponatremia - initially 129, slowly increasing to 131, likely due to alcohol use and causing worsening altered mental status, NS@75mL/hr due to comorbidities, will add salt tabs if no significant improvement with fluids 3. 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 HTN - chronic, continue home medications 5. Anemia, chronic - monitor 6. Alcohol abuse - WA protocol, MVI, thiamine, and folic acid ordered DVT Prophylaxis: ASA, Ambulation Time Spent: Greater than 80 minutes spent with patient, 50% of the time spent with this patient was devoted to counseling and coordination of care. [facility]annin minutes spent discussing advance care planning. Disposition: Admit to: Med/Surg Observation -> Admit to IP today due to no improvement with sodium and mental status despite 24 hours of observation with IV fluids. Full Code Discussed Plan of Care with Dr. Cuenca. Medications Medication Orders: Medications Ordered Category Date Time Status Acetaminophen [Tylenol] Meds 08/04/25 16:32 Active 650 mg PO Q4H PRN Alprazolam [Xanax] Meds 08/04/25 21:00 Active 0.5 mg PO BID Aspirin [Aspirin Chewable] Meds 08/05/25 07:30 Active 81 mg PO DAILYWM2 Atorvastatin Calcium [Lipitor] Meds 08/05/25 09:00 Active 20 mg PO DAILY Diltiazem HCl [Cardizem] Meds 08/04/25 21:00 Active 60 mg PO 2XD Doxazosin Mesylate [Cardura] Meds 08/05/25 09:00 Active 4 mg PO DAILY Folic Acid Meds 08/04/25 17:00 Active 1 mg PO DAILY Hydralazine HCl Meds 08/04/25 16:47 Active 10 mg IVP Q6H PRN Ibuprofen [Motrin] Meds 08/05/25 10:44 Active 600 mg PO Q6H PRN Levothyroxine Sodium [Synthroid] Meds 08/05/25 06:30 Active 50 mcg PO 0630 Lorazepam [Ativan] Meds 08/04/25 16:47 Active 1 mg IVP Q2HR PRN Lorazepam [Ativan] Meds 08/04/25 16:47 Active 1 mg PO Q2HR PRN Lorazepam [Ativan] Meds 08/04/25 16:47 Active 2 mg IVP Q15MIN PRN Lorazepam [Ativan] Meds 08/04/25 16:47 Active 2 mg IVP Q1HR PRN Lorazepam [Ativan] Meds 08/04/25 16:47 Active 2 mg PO Q1HR PRN Losartan Potassium [Cozaar] Meds 08/05/25 09:00 Active 100 mg PO DAILY Multivitamin [Multivitamin Tablet] Meds 08/04/25 17:00 Active 1 tab PO DAILY Ondansetron HCl/Pf [Zofran Sdv] Meds 08/04/25 16:47 Active 4 mg IVP Q6H PRN Sodium Chloride 0.9% [Sodium Chloride] 1,000 ml Meds 08/04/25 17:00 Active IV 75 mls/hr Venlafaxine HCl [Effexor Xr] Meds 08/05/25 09:00 Active 150 mg PO DAILY Vitamin B-1 [Thiamine] Meds 08/04/25 17:00 Active 100 mg PO DAILY
[2025-08-05] MEDS: ATIVAN IVP PRN (21:46)
[2025-08-06 05:38] LABS: IMMATURE GRANULOCYTE # (AUTO) 0.0 (0.0-1.0); IMMATURE GRANULOCYTE % (AUTO) 0.2 % (0.0-5.0); RDW COEFFICIENT OF VARIATION 12.5 % (11.6-14.8)
[2025-08-06 05:53] LABS: CREATININE 0.77 mg/dL (0.60-1.10)
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
[2025-08-07 05:37] LABS: IMMATURE GRANULOCYTE # (AUTO) 0.0 (0.0-1.0); IMMATURE GRANULOCYTE % (AUTO) 0.3 % (0.0-5.0); RDW COEFFICIENT OF VARIATION 12.4 % (11.6-14.8)
[2025-08-07 05:53] LABS: CREATININE 0.83 mg/dL (0.60-1.10)
[2025-08-07] MEDS: SODIUM CHLORIDE PO SCH (08:42)
--- NOTE | 2025-08-07 09:38 | PCM.PROG ---
Date/Time Seen Date Seen by Provider: 08/07/25 Time Seen by Provider: 09:00 Provider [facility] Chief Complaint Chief Complaint: TIA, HTN, HYPONATREMIA Subjective Subjective: More alert and lucid today. States he doesn't quite remember what happened and why he is here. Asked if he passed out. Objective Appearance: Positive No Apparent Distress Chest/Lungs: Positive Symmetrical With Equal Breath Sounds, Clear to Auscultation Bilaterally and Good Air Movement all 4 Lung Fuchs Heart: Positive RRR and Pulses Normal GI/: Positive Soft, Nontender, Bowel Sounds Normal and No Distention Musculoskeletal: Positive Not Examined Neurological: Positive Sensation Intact, Motor intact, Reflexes Intact, Alert, Oriented (person, place, time) and Disorinted (situation) Vital Signs Vital Signs: Vital Signs: Last 24 Hours 08/06/25 10:00 08/06/25 13:00 08/06/25 14:00 Temperature 97.3 F L 96.6 F L Temperature Source Temporal Artery Scan Temporal Artery Scan Pulse Rate 65 60 Respiratory Rate 16 14 Blood Pressure 204/113 H 132/68 Blood Pressure Mean 143 89 Blood Pressure Location Right Arm Right Arm Blood Pressure Position O2 Sat by Pulse Oximetry 96 97 Oxygen Delivery Method Room Air Room Air Telemetry Type Remote Telemetry Telemetry Monitoring Continues Telemetry Heart Rate 60 Telemetry SPO2 96 EKG AL Interval 0.20 EKG QRS Interval 0.08 Telemetry Strip Reading SR 08/06/25 17:58 08/06/25 19:00 08/06/25 19:33 Temperature 97.4 F L Temperature Source Tympanic Pulse Rate 58 L Respiratory Rate 18 Blood Pressure 146/75 H Blood Pressure Mean 98 Blood Pressure Location Right Arm Blood Pressure Position Sitting O2 Sat by Pulse Oximetry 95 Oxygen Delivery Method Room Air Room Air Telemetry Type Remote Telemetry Telemetry Monitoring Continues Telemetry Heart Rate 95 Telemetry SPO2 97 EKG AL Interval EKG QRS Interval 0.10 Telemetry Strip Reading Atrial Paced 08/06/25 21:00 08/06/25 21:25 08/07/25 01:00 Temperature 97.2 F L 97.2 F L Temperature Source Tympanic Pulse Rate 69 69 Respiratory Rate 20 20 Blood Pressure 148/62 H 148/62 H Blood Pressure Mean 90 Blood Pressure Location Right Arm Blood Pressure Position Supine O2 Sat by Pulse Oximetry 97 Oxygen Delivery Method Room Air Telemetry Type Remote Telemetry Telemetry Monitoring Continues Telemetry Heart Rate 59 L Telemetry SPO2 96 EKG AL Interval 0.18 EKG QRS Interval 0.10 Telemetry Strip Reading SB 08/07/25 02:00 08/07/25 05:14 08/07/25 08:00 Temperature 97.5 F L 97.6 F Temperature Source Tympanic Tympanic Pulse Rate 78 62 Respiratory Rate 20 20 Blood Pressure 142/80 H 188/82 H Blood Pressure Mean 100 117 Blood Pressure Location Right Arm Right Arm Blood Pressure Position Supine Supine O2 Sat by Pulse Oximetry 97 97 Oxygen Delivery Method Room Air Room Air Room Air Telemetry Type Telemetry Monitoring Telemetry Heart Rate Telemetry SPO2 EKG AL Interval EKG QRS Interval Telemetry Strip Reading Lab Results Lab Results: Lab Results: Last 24 Hours 08/07/25 05:07 WBC 7.20 RBC 3.00 L Hgb 10.2 L Hct 31.3 L MCV 104.3 H MCH 34.0 H MCHC 32.6 RDW Coeff of Josy 12.4 Plt Count 239 Immature Gran % (Auto) 0.3 Neut % (Auto) 50.4 Lymph % (Auto) 32.5 [place] % (Auto) 10.6 H Eos % (Auto) 5.6 Baso % (Auto) 0.6 Neut # (Auto) 3.6 Lymph # (Auto) 2.3 [place] # (Auto) 0.8 Eos # (Auto) 0.4 Baso # (Auto) 0.0 Immature Gran # (Auto) 0.0 Sodium 132.7 L Potassium 4.16 Chloride 105.5 Carbon Dioxide 27.4 Anion Gap 3.96 BUN 14.7 Creatinine 0.83 Estimated GFR (MDRD) 91.00 BUN/Creatinine Ratio 17.71 Glucose 98.6 Calcium 8.35 L Total Bilirubin 0.34 AST 25.7 ALT 13.7 Alkaline Phosphatase 57.3 Total Protein 5.67 L Albumin 3.17 L Globulin 2.50 Albumin/Globulin Ratio 1.26 Additional Comments Additional Comments: I have independently reviewed and interpreted the labs/EKGs/imaging ordered during this hospital stay. I have reviewed outside records that are available in our EMR that pertain to medical stay including imaging/notes/labs from previous visits. Active Medications Active Medications: Medications Generic Name Dose Route Start Last Admin Trade Name Freq PRN Reason Stop Dose Admin Acetaminophen 650 mg 08/04/25 16:32 Acetaminophen 325 Mg Tablet PO Q4H PRN Mild Pain Alprazolam 0.5 mg 08/04/25 21:00 08/07/25 08:42 Alprazolam 0.5 Mg Tablet PO 0.5 mg BID DAVION Administration Aspirin 81 mg 08/05/25 07:30 08/07/25 08:41 Aspirin 81 Mg Tab.Chew PO 81 mg [id number] DAVION Administration Atorvastatin Calcium 20 mg 08/05/25 09:00 08/07/25 08:45 Atorvastatin Calcium 20 Mg Tablet PO 20 mg DAILY DAVION Administration Diltiazem HCl 60 mg 08/04/25 21:00 08/07/25 08:42 Diltiazem Hcl 60 Mg Tablet PO 60 mg 2XD DAVION Administration Doxazosin Mesylate 4 mg 08/05/25 09:00 08/07/25 08:45 Doxazosin Mesylate 2 Mg Tablet PO 4 mg DAILY DAVION Administration Folic Acid 1 mg 08/04/25 17:00 08/07/25 08:45 Folic Acid 1 Mg Tablet PO 1 mg DAILY DAVION Administration Hydralazine HCl 10 mg 08/04/25 16:47 08/04/25 18:36 Hydralazine Hcl 20 Mg/Ml Sdv IVP 10 mg Q6H PRN Administration Hypertension Ibuprofen 600 mg 08/05/25 10:44 08/05/25 11:00 Ibuprofen 600 Mg Tablet PO 600 mg Q6H PRN Administration Mild Pain Levothyroxine Sodium 50 mcg 08/05/25 06:30 08/07/25 05:41 Levothyroxine Sodium 50 Mcg Tablet PO 50 mcg 0630 DAVION Administration Lorazepam 1 mg 08/04/25 16:47 08/05/25 21:46 Lorazepam Inj 2 Mg/Ml Vial IVP 1 mg Q2HR PRN Administration Withdrawal Lorazepam 2 mg 08/04/25 16:47 Lorazepam Inj 2 Mg/Ml Vial IVP Q1HR PRN Withdrawal Lorazepam 2 mg 08/04/25 16:47 Lorazepam Inj 2 Mg/Ml Vial IVP Q15MIN PRN Withdrawal Lorazepam 1 mg 08/04/25 16:47 Lorazepam 1 Mg Tablet PO Q2HR PRN Withdrawal Lorazepam 2 mg 08/04/25 16:47 Lorazepam 1 Mg Tablet PO Q1HR PRN Withdrawal Losartan Potassium 100 mg 08/05/25 09:00 08/07/25 08:42 Losartan Potassium 100 Mg Tablet PO 100 mg DAILY DAVION Administration Multivitamins 1 tab 08/04/25 17:00 08/07/25 08:41 Multivitamin 1 Tab PO 1 tab DAILY DAVION Administration Ondansetron HCl 4 mg 08/04/25 16:47 Ondansetron Hcl/Pf 4 Mg/2 Ml Sdv IVP Q6H PRN Nausea / Vomiting Sodium Chloride 1 gm 08/07/25 09:00 08/07/25 08:42 Sodium Chloride 1 Gm Tablet PO 1 gm TID DAVION Administration Thiamine HCl 100 mg 08/04/25 17:00 08/07/25 08:42 Vitamin B-1 100 Mg Tablet PO 100 mg DAILY DAVION Administration Venlafaxine HCl 150 mg 08/05/25 09:00 08/07/25 08:41 Venlafaxine Hcl 75 Mg Cap.Er.24h PO 150 mg DAILY DAVION Administration Plan Plan: 1. Syncope/TIA - imaging negative, troponins negative, UA negative, no labs indicative of hepatic encephalopathy, unable to complete MRI due to pacemaker, avoid neurologically altering agents, neurochecks Q4H 2. Hyponatremia - initially 129, slowly improving, likely due to alcohol use and causing worsening altered mental status, stopping fluids to avoid overload, added salt tabs today 3. 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 HTN - chronic, continue home medications 5. Anemia, chronic - monitor 6. Alcohol abuse - CIWA protocol, MVI, thiamine, and folic acid ordered DVT Prophylaxis: ASA, Ambulation Dispo: Awaiting SNF placement Review Statement Review Statement: I have personally discussed and reviewed the patient's visit/currently labs/imaging/decision making with Dr. Cuenca, my supervising attending. Greater that 50 minutes spent with patient, 50% of the time spent with this patient was devoted to counseling and coordination of care.
[2025-08-07] MEDS: HYDROCORTISONE 1% CREAM TP PRN (16:37)
[2025-08-07] MEDS: NORVASC PO ONE (21:53)
[2025-08-07] MEDS: NORVASC ONE (23:06)
[2025-08-08 05:35] LABS: IMMATURE GRANULOCYTE # (AUTO) 0.0 (0.0-1.0); IMMATURE GRANULOCYTE % (AUTO) 0.3 % (0.0-5.0); RDW COEFFICIENT OF VARIATION 12.3 % (11.6-14.8)
[2025-08-08 05:50] LABS: CREATININE 0.8 mg/dL (0.60-1.10)
[2025-08-08] MEDS: APRESOLINE PO SCH (08:16)
--- NOTE | 2025-08-08 10:49 | RS.SP/LANG ---
Subjective Date of Evaluation: 08/08/25 Diagnosis: Cognitive Deficits Prior Level of Function.....Patient was independent with: ADL's, Self Care, Ambulation/Mobility and Community Integration/Access Current Level of Function: Patient is a 75 yr old male that lives at home with h is daughter and grandson. Prior to his hospitalization, he was independent and driving. He was brought to the hospital due to dizziness . Current Diet: Regular-no swallowing concerns Current Subjective/complaints:: Patient was referred for a speech evaluation due to cognitive concerns and confusion. Information Formal/Objective Assessment:: The SLUMS Examination was administered to assess his cognitive function. He received a score of 08/28. He was oriented to person, year and place. He was not able to recall recent events. He was not able to recall objects when asked to remember them. He was not able to complete functional problem solving using simple math. His thought processing skills are also affected. He was easily distracted during the evaluation session and would lose his focus on a task. Analysis:: Patient presents with a significant cognitive-communicative disorder. His disorder does affect his ability to return to prior level of living independently. Summary and Recommendations:: Speech therapy is recommended to address his deficits. Short Term Goals Goal #1: Improve orientation skills. Goal to be met by: 08/11/25 Goal #2: Improve short term memory skills. Goal to be met by: 08/11/25 Goal #3: Improve functional problem solving and safety. Goal to be met by: 08/11/25 Plan Duration of Treatment: 4 days Frequency of Treatment: 1xday Comments: Admission LOS and discharge destination unknown at this time. Treatment Code (1) Cognitive communication deficit: Code(s): R41.841 - Cognitive communication deficit
--- NOTE | 2025-08-08 12:35 | PCM.PROG ---
Date/Time Seen Date Seen by Provider: 08/08/25 Time Seen by Provider: 08:45 Provider Provider: PEACE SERRA PA-C, [facility] Chief Complaint Chief Complaint: TIA, HTN, HYPONATREMIA Subjective Subjective: Patient is in a pleasant mood and is alert and oriented x3. This is an improvement from his status over the weekend. He is still confused at times and has difficulty remembering details when answering questions. He states he feels good today. He denies any dizziness, lightheadedness, dyspnea, or chest pain. He often has 6-12 cans of beer a day and this would be day 5 without alcohol. He denies symptoms of withdrawal such as tremors, palpitations, sweating, or hallucinations. Daughter was in the room with him today and the need for assi sted living was discussed. Patient is hesitant about living someplace other than home. Objective Appearance: Positive Well-nourished, No Apparent Distress and Alert and Oriented x3 (is alert and oriented but has difficulty remembering and recalling certain situations) Chest/Lungs: Positive Symmetrical With Equal Breath Sounds, Clear to Auscultation Bilaterally and Good Air Movement all 4 Lung Fuchs; Negative Rales, Rhonci or Wheezes Heart: Positive RRR; Negative Murmur, Irregular Rhythm, Tachycardia or Bracycardia GI/: Positive Soft, Nontender and Bowel Sounds Normal Neurological: Positive Sensation Intact, Motor intact, Cranial Nerves Intact, Alert and Oriented Vital Signs Vital Signs: Vital Signs: Last 24 Hours 08/07/25 13:00 08/07/25 14:00 08/07/25 18:00 Temperature 97.2 F L 97 F L Temperature Source Temporal Artery Scan Temporal Artery Scan Pulse Rate 79 70 Respiratory Rate 16 17 Blood Pressure 155/80 H 192/84 H Blood Pressure Mean 105 120 Blood Pressure Location Right Arm Left Arm Blood Pressure Position O2 Sat by Pulse Oximetry 99 95 Oxygen Delivery Method Room Air Room Air Telemetry Type Remote Telemetry Telemetry Monitoring Continues Telemetry Heart Rate 77 Telemetry SPO2 97 EKG NC Interval EKG QRS Interval 0.10 Telemetry Strip Reading ATRIAL PACED 08/07/25 19:00 08/07/25 20:00 08/07/25 21:35 Temperature 97.9 F Temperature Source Pulse Rate 67 Respiratory Rate 16 Blood Pressure 178/86 H Blood Pressure Mean Blood Pressure Location Blood Pressure Position O2 Sat by Pulse Oximetry Oxygen Delivery Method Room Air Telemetry Type Remote Telemetry Telemetry Monitoring Continues Telemetry Heart Rate 60 Telemetry SPO2 98 EKG NC Interval EKG QRS Interval 0.10 Telemetry Strip Reading Atrial Paced 08/07/25 21:59 08/08/25 01:00 08/08/25 02:00 Temperature 97.9 F 97.1 F L Temperature Source Temporal Artery Scan Temporal Artery Scan Pulse Rate 67 81 Respiratory Rate 16 20 Blood Pressure 178/86 H 140/68 Blood Pressure Mean 116 92 Blood Pressure Location Right Arm Right Arm Blood Pressure Position Supine Supine O2 Sat by Pulse Oximetry 97 97 Oxygen Delivery Method Room Air Room Air Telemetry Type Remote Telemetry Telemetry Monitoring Continues Telemetry Heart Rate 60 Telemetry SPO2 97 EKG NC Interval 0.15 EKG QRS Interval 0.10 Telemetry Strip Reading SR 08/08/25 05:24 08/08/25 07:00 08/08/25 08:00 Temperature 97.0 F L Temperature Source Temporal Artery Scan Pulse Rate 61 Respiratory Rate 20 Blood Pressure 148/77 H Blood Pressure Mean 100 Blood Pressure Location Right Arm Blood Pressure Position Supine O2 Sat by Pulse Oximetry 96 Oxygen Delivery Method Room Air Room Air Telemetry Type Remote Telemetry Telemetry Monitoring Continues Telemetry Heart Rate 64 Telemetry SPO2 97 EKG NC Interval 0.14 EKG QRS Interval 0.08 Telemetry Strip Reading SR 08/08/25 10:00 Temperature 97.1 F L Temperature Source Tympanic Pulse Rate 68 Respiratory Rate 16 Blood Pressure 129/69 Blood Pressure Mean 89 Blood Pressure Location Left Arm Blood Pressure Position Sitting O2 Sat by Pulse Oximetry 98 Oxygen Delivery Method Room Air Telemetry Type Telemetry Monitoring Telemetry Heart Rate Telemetry SPO2 EKG NC Interval EKG QRS Interval Telemetry Strip Reading Lab Results Lab Results: Lab Results: Last 24 Hours 08/08/25 05:14 WBC 7.34 RBC 2.95 L Hgb 10.3 L Hct 30.1 L MCV 102.0 H MCH 34.9 H MCHC 34.2 RDW Coeff of Josy 12.3 Plt Count 235 Immature Gran % (Auto) 0.3 Neut % (Auto) 51.6 Lymph % (Auto) 31.6 [place]well % (Auto) 9.9 Eos % (Auto) 5.9 Baso % (Auto) 0.7 Neut # (Auto) 3.8 Lymph # (Auto) 2.3 [place]well # (Auto) 0.7 Eos # (Auto) 0.4 Baso # (Auto) 0.1 Immature Gran # (Auto) 0.0 Sodium 132.1 L Potassium 3.55 Chloride 105.4 Carbon Dioxide 24.3 Anion Gap 5.95 BUN 18.0 Creatinine 0.80 Estimated GFR (MDRD) 95.00 BUN/Creatinine Ratio 22.50 Glucose 98.3 Calcium 8.59 Total Bilirubin 0.31 AST 26.4 ALT 15.0 Alkaline Phosphatase 57.0 Total Protein 5.75 L Albumin 3.35 L Globulin 2.40 Albumin/Globulin Ratio 1.39 Additional Comments Additional Comments: I have independently reviewed and interpreted the labs/EKGs/imaging ordered during this hospital stay. I have reviewed outside records that are available in our EMR that pertain to medical stay including imaging/notes/labs from previous visits. Active Medications Active Medications: Medications Generic Name Dose Route Start Last Admin Trade Name Freq PRN Reason Stop Dose Admin Acetaminophen 650 mg 08/04/25 16:32 Acetaminophen 325 Mg Tablet PO Q4H PRN Mild Pain Alprazolam 0.5 mg 08/04/25 21:00 08/08/25 08:15 Alprazolam 0.5 Mg Tablet PO 0.5 mg BID DAVION Administration Aspirin 81 mg 08/05/25 07:30 08/08/25 08:13 Aspirin 81 Mg Tab.Chew PO 81 mg DAILYWM2 DAVION Administration Atorvastatin Calcium 20 mg 08/05/25 09:00 08/08/25 08:14 Atorvastatin Calcium 20 Mg Tablet PO 20 mg DAILY DAVION Administration Diltiazem HCl 60 mg 08/04/25 21:00 08/08/25 08:14 Diltiazem Hcl 60 Mg Tablet PO 60 mg 2XD DAVION Administration Doxazosin Mesylate 4 mg 08/05/25 09:00 08/08/25 08:16 Doxazosin Mesylate 2 Mg Tablet PO 4 mg DAILY DAVION Administration Folic Acid 1 mg 08/04/25 17:00 08/08/25 08:16 Folic Acid 1 Mg Tablet PO 1 mg DAILY DAVION Administration Hydralazine HCl 10 mg 08/04/25 16:47 08/08/25 00:56 Hydralazine Hcl 20 Mg/Ml Sdv IVP 10 mg Q6H PRN Administration Hypertension Hydralazine HCl 10 mg 08/08/25 09:00 08/08/25 08:16 Hydralazine Hcl 10 Mg Tablet PO 10 mg Q8H DAVION Administration Hydrocortisone 1 applic 08/07/25 16:25 08/07/25 16:37 Hydrocortisone 28 Gm Cream TP 1 applic BID PRN Administration Rash Ibuprofen 600 mg 08/05/25 10:44 08/05/25 11:00 Ibuprofen 600 Mg Tablet PO 600 mg Q6H PRN Administration Mild Pain Levothyroxine Sodium 50 mcg 08/05/25 06:30 08/08/25 05:40 Levothyroxine Sodium 50 Mcg Tablet PO 50 mcg 0630 DAVION Administration Lorazepam 1 mg 08/04/25 16:47 08/05/25 21:46 Lorazepam Inj 2 Mg/Ml Vial IVP 1 mg Q2HR PRN Administration Withdrawal Lorazepam 2 mg 08/04/25 16:47 Lorazepam Inj 2 Mg/Ml Vial IVP Q1HR PRN Withdrawal Lorazepam 2 mg 08/04/25 16:47 Lorazepam Inj 2 Mg/Ml Vial IVP Q15MIN PRN Withdrawal Lorazepam 1 mg 08/04/25 16:47 Lorazepam 1 Mg Tablet PO Q2HR PRN Withdrawal Lorazepam 2 mg 08/04/25 16:47 Lorazepam 1 Mg Tablet PO Q1HR PRN Withdrawal Losartan Potassium 100 mg 08/05/25 09:00 08/08/25 08:13 Losartan Potassium 100 Mg Tablet PO 100 mg DAILY DAVION Administration Multivitamins 1 tab 08/04/25 17:00 08/08/25 08:14 Multivitamin 1 Tab PO 1 tab DAILY DAVION Administration Ondansetron HCl 4 mg 08/04/25 16:47 Ondansetron Hcl/Pf 4 Mg/2 Ml Sdv IVP Q6H PRN Nausea / Vomiting Sodium Chloride 1 gm 08/07/25 09:00 08/08/25 08:15 Sodium Chloride 1 Gm Tablet PO 1 gm TID DAVION Administration Thiamine HCl 100 mg 08/04/25 17:00 08/08/25 08:15 Vitamin B-1 100 Mg Tablet PO 100 mg DAILY DAVION Administration Venlafaxine HCl 150 mg 08/05/25 09:00 08/08/25 08:15 Venlafaxine Hcl 75 Mg Cap.Er.24h PO 150 mg DAILY DAVION Administration Assessment (1) Cognitive communication deficit: Status: Acute Code(s): R41.841 - Cognitive communication deficit SNOMED Code(s): 587637813305134 Plan Plan: 1. Syncopal episode - imaging negative, has known right sided carotid stenosis, troponins negative, UA negative, no labs indicative of hepatic encephalopathy, unable to complete MRI due to pacemaker, avoid neurologically altering agents, cont tele 2. Hyponatremia - initially 129, slowly improving, likely due to alcohol use and causing worsening altered mental status, fluids dc'd, cont salt tabs 3. Memory impairment, acute on chronic - Worsened upon admission with confusion and hallucinations, had been seeing neuro outpatient for ongoing memory issues. Patient very confused over the weekend, improved today, could be due to alcoholism/withdrawal symptoms (last drink reportedly 08/03) vs hypertensive encephalopathy. Near baseline today per daughter at bedside. BP normalized today. Discussing discharge plans with family at this time, would benefit from speech eval from cognitive stand point. Would recommend against driving at this point. 4. HTN - chronic, continue home medications, hydralazine TID started 5. Anemia, chronic - monitor 6. Alcohol abuse - CIWA protocol, MVI, thiamine, and folic acid ordered DVT Prophylaxis: Ambulation Dispo: Awaiting SNF placement vs assisted living vs home, no clear plan at this point, family is discussing further with patient. Review Statement Review Statement: I have personally discussed and reviewed the patient's visit/currently labs/imaging/decision making with Dr. Cuenca, my supervising attending. Greater that 50 minutes spent with patient, 50% of the time spent with this patient was devoted to counseling and coordination of care.
--- NOTE | 2025-08-08 16:09 | RS.OTINEVL ---
Subjective <MARCOS GALLEGOS OT - Last Filed: 08/08/25 16:49> Patient information Date of Evaluation: 08/08/25 Date of Arrival on Unit: 08/04/25 Admitted From:: Home Diagnosis: TIA, HTN, Hyponatremia, Usual Living Arrangement: With Others Living Arrangement Comments: daughter is living with patient and she is not helpful for him. Home Environment: House Medical History: Hypertension, Arthritis and Cancer Medical History Comments:: [place] 2019, Anxiety syndrome, Anemia, Depression, Hypothyroidism, multiple concussions (~4 per patient) Surgical History: CABG Medications: Refer to chart Subjective Information/ Patient Comments:: "I would like some chocolate." Level of function Prior to this admission, the patient could do the following:: Independent ADL's, Independent Ambulation, Drive and Participated in Social Activities Outside home Abilities prior to this admission: Pt would drive the [employer] friends around. Current Level of Function: Partially Dependent Comments: Pt is able to get in and out of bed. Pt has full AROM of BUE. Pt is able to complete toileting (I) with RW. Pt requires v.c. to complete washing his hands, to wash with soap and to dry hands. Current Equipment Used at Home: No AD <PEACE SERRA PA-C - Last Filed: 08/08/25 20:17> Patient information PRECAUTIONS: none Interventions <MARCOS GALLEGOS OT - Last Filed: 08/08/25 16:49> Objective Patient Orientation: Person Observation: Pt requires v.c. to complete washing hands, using soap. Pt is better physically than he is cognitively. Pt has full AROM of BUE. Interventions <MARCOS GALLEGOS OT - Last Filed: 08/08/25 16:49> ROM Right Upper Extremity AROM: WFL's Left Upper Extremity AROM: WFL's Strength Right Upper Extremity: Normal Left Upper Extremity: Normal Sensation Right Upper Extremity: Intact/Normal Left Upper Extremity: Intact/Normal Balance <MARCOS GALLEGOS OT - Last Filed: 08/08/25 16:49> Sitting Balance Static Sitting Balance: Normal Dynamic Sitting Balance: Normal Standing Balance Static Standing Balance: Fair Dynamic Standing Balance: Fair Comments Balance Assessment Comments: Used RW during ambulation ADL Skills <MARCOS GALLEGOS OT - Last Filed: 08/08/25 16:49> Self Feeding Self Feeding: Independent Grooming Grooming: Set Up Only and Verbal Cues Grooming Set-up: Sitting Bathing Bathing UE: Independent Bathing LE: Independent Bathing Set-up: Shower Dressing Dressing UE: Independent Dressing LE: Independent Toilet Management Toilet Hygiene: Independent Toilet Clothing Management: Independent Functional Mobility <MARCOS GALLEGOS OT - Last Filed: 08/08/25 16:49> Bed Mobility Rolling R/L: Independent Scooting: Independent Supine to Sit: Independent Transfers Sit to Stand: Independent Stand to Sit: Independent Ambulation Assistance needed with Ambulation: Independent Safety Awareness Safety Awareness: Poor IVETH INDEX SCORE: . Additional Treatment Performed <MARCOS GALLEGOS OT - Last Filed: 08/08/25 16:49> Time with patient Length of Evaluation: 16 Total treatment time: 42 Activities <MARCOS GALLEGOS OT - Last Filed: 08/08/25 16:49> Would you be interested in leaving your room for activities?: Yes Would you enjoy group activities?: Yes Do you have difficulty with your vision?: Yes Patient Interests:: Watching Television and Visiting/Socializing Patient Education <MARCOS GALLEGOS OT - Last Filed: 08/08/25 16:49> Teaching Recipient: Patient Teaching Methods: Discussion and Demonstration Assessment <MARCOS GALLEGOS OT - Last Filed: 08/08/25 16:49> Problem List:: Cognitive status limits abilities Rehab Potential: Poor Further Therapy Indicated?: No Candidate for Swing Bed for Therapy Services?: No Patient's Goal(s): . Short Term Goals <MARCOS GALLEGOS OT - Last Filed: 08/08/25 16:49> Goals GOAL 1: No goals at this time. Geropsychologist Goals <MARCOS GALLEGOS OT - Last Filed: 08/08/25 16:49> GOAL 1: No goals at this time. Plan <MARCOS GALLEGOS OT - Last Filed: 08/08/25 16:49> Other:: Pt would benefit from SNF to keep him safe. Anticipated Discharge Destination: [facility] Care Facility Treatment Diagnosis (ICD 10 Codes): . Has the Physician been added for Co-signature?: Yes
--- NOTE | 2025-08-08 17:11 | RS.PTINEVL ---
Subjective Patient information Date of Evaluation: 08/08/25 Date of Arrival on Unit: 08/04/25 Usual Living Arrangement: With Others Living Arrangement Comments: daughter is living with patient and she is not helpful for him. Home Environment: House Medications: Refer to chart Subjective Information/ Patient Comments:: Mr. Summers states he will make a deal with therapy staff. He will walk with us, if we will bring him some chocolate ice cream. States his left low back is hurting while walking. States it was not bothering him while laying in the bed. Level of function Prior to this admission, the patient could do the following:: Independent ADL's, Independent Ambulation, Drive and Participated in Social Activities Outside home Current Equipment Used at Home: No AD Interventions Objective Patient Orientation: Person Current Interventions: Telemetry Observation: Mr. Summers presents sitting in bed with lunch tray. He is trying to use a spoon to separate the plate from the base it was served in. Lunch tray looks barely eaten, however some food is on the tray instead of the plate. He is looking around like he cannot figure out what he needs. I offered utensils or straw. Range of Motion ROM Right Upper Extremity AROM: WFL's Left Upper Extremity AROM: WFL's Right Lower Extremity AROM: WFL's Left Lower Extremity AROM: WFL's Muscle Strength Muscle Strength Comments:: LE strength: grossly 4+/5 throughout. Sensation Sensation Comments: Intact to light touch per patient. Balance Sitting Balance and Reactions Static Sitting Balance: Good Dynamic Sitting Balance: Good Standing Balance and Reactions Static Standing Balance: Fair (+) Dynamic Standing Balance: Fair (+) Functional Mobility Bed Mobility Scooting: Independent Supine to Sit: Independent Sit to Supine: Independent Transfers Sit to Stand: Supervision Stand to Sit: Supervision Stand Pivot Transfers: Supervision Safety Awareness Safety Awareness: Poor IVETH INDEX SCORE: NA Ambulation Ambulation Weight Bearing Status: FWB Assistive Device Used: Rolling Walker Distance: 100 feet Assistance needed with Ambulation: Supervision Quality of Ambulation: Pt demonstrates no loss of balance or veering from a straight path. He needed continuous cues to turn walker with changing directions. Factors Affecting Ambulation: Cognitive Status Treatment time Time with patient Length of Evaluation: 16 Total treatment time: 42 Assessment Assessment Problem List:: Cognitive status limits abilities Further Therapy Indicated?: No Candidate for Swing Bed for Therapy Services?: No. Demonstrates significant cognitive issues. He is high functioning physically. Evaluation Complexity: HISTORY: Medium (cognition, history ETOH abuse), EXAM OF BODY SYSTEMS: Medium, CLINICAL PRESENTATION: Medium and CLINICAL DECISION MAKING: Medium Patient's Goal(s): He wants to return home. Plan Frequency of Treatment: One time treatment Duration of Treatment: One Time Treatment Treatment Diagnosis (ICD 10 Codes): . Has the Physician been added for Co-signature?: Yes
[2025-08-09 05:30] LABS: IMMATURE GRANULOCYTE # (AUTO) 0.0 (0.0-1.0); IMMATURE GRANULOCYTE % (AUTO) 0.3 % (0.0-5.0); RDW COEFFICIENT OF VARIATION 12.4 % (11.6-14.8)
[2025-08-09 05:44] LABS: CREATININE 0.83 mg/dL (0.60-1.10)
--- NOTE | 2025-08-09 11:15 | DCSUM ---
Admission Date Admission Date: 08/04/25 Discharge Date Discharge Date: 08/10/25 Admission Diagnosis Admission Diagnosis: 1. Syncopal episode Discharge Diagnosis Discharge Diagnosis: 1. Syncopal episode - no further episodes 2. Hyponatremia - improved 3. Memory impairment, multifactoral 4. HTN - chronic, worsened 5. Anemia, chronic 6. Alcohol abuse 7. Right carotid stenosis 8. Orthostatic hypotension, mild Hospital Provider Hospital Provider: PEACE SERRA PA-C, [facility] [place] Primary Care Physician Primary Care Physician: WOLFGANG SHARMA Summary of History and Physical Summary of History and Physical: 75 yo male with pmh alcohol abuse, chronic anemia, HTN, BPH, thyroid disease, medication noncompliance presented to the ER from [facility] following a questionable seizure/syncope episode/TIA. Patient was sitting at a table with someone and slumped over and had jerking movements to one of his arms. Patient r eported to me and the ER provider he has been having these episodes for "years" and he basically feels as if he is "unplugged". Denies loss of consciousness and does remember the episodes. Denies chest pain, sob, palpitations, loss of bowel or bladder control. Upon discussion, he is unable to answer questions appropriately and lacks the ability to carry on meaningful conversation. Per staff nuclear medicine technologist that has spoken with family members, he does have good days and bad days with his memory and this has been worsening for quite some time. He has had dizzy episodes and memory loss. Last saw [facility] back in April of this year and attributed the symptoms to his long-term alcohol use. He also was ordered an echo, carotid ultrasound, holter monitor, and EEG to be completed but the office was unable to contact the patient for these orders to be fullfilled. In ER, head CT and CTA head and neck were negative for acute findings. Does have carotid stenosis on one side that is not new and is currently reading at 55%. UA negative. No white blood cell count. Sodium was low at 129. and BP was elevated with systolic in the 200s. Admitted to med/surg observation. Hospital Course Subjective: Patient was noted on 08/05 and through the weekend to be more lethargic, hypertensive, confused, at times hallucinating. He did require one dose of ativan on evening of 08/05. By Friday morning, 08/08, patient appears to be closer to his baseline per daughter Maira. He is sitting in bed, drinking coffee, asking questions regarding his care, etc. He does have some confusion on and off. His confusion over the weekend thought to be related to alcohol withdrawal (last reported drink on 08/03) or hypertensive encephalopathy, or multifactoral. Patient has been following with neurology outpatient in regards to his worsening memory and recently had labs performed which were overall unremarkable. He did not follow up with any of the outpatient imaging ordered for a reported syncopal episode at that time. However, here, his CTA H&N overall unremarkable except for known right sided carotid stenosis, rec continued outpatient f/u. He had no events on telemetry while here. Echo report still pending but no signs of decompensated HF, etc. His losartan/HCTZ was discontinued, and was started on just losartan 100 mg and hydralazine 10 mg TID was added. Patient was noted to be mildly orthostatic, but denies dizziness during orthostats. Will decrease doxazosin dose to 2 mg daily and recommend carroll hose. Slow position changes. His MMSE results with neurology this past year were 24 and then 25, today he scored a 23 indicating mild cognitive impairment. Maira, POA/daughter, has concerns regarding him returning home with his other daughter Marga at this time. Would benefit from skilled rehab including ptotst. Patient is agreeable. No driving recommended. Cont outpatient f/u with neurology. Thiamine, folic acid, and multivitamin ordered due to his alcoholism. Update 08/10: Patient's discharge on 08/09 was delayed, correction would not take until patient had a BM. He has had a BM overnight, will discharge to [place] t ellie. Appearance: Pleasant, No Apparent Distress, Alert and Other (oriented to person, place, and year but gets confused regarding day of the week ) HEENT: Supple CVS: Other (RRR) Abdomen: Soft, Non-Tender and No Distention Respiratory: No Accessory Muscle Use Extremities: No Edema and Other (area on right anterior leg of erythema with some scaling, appears to be a contact dermatitis ) Vital Signs: Most Recent Vital Signs Temperature 97 F L 08/09/25 10:35 Temperature Source Temporal Artery Scan 08/09/25 10:35 Temperature Source Infrared 08/04/25 13:33 Pulse Rate 64 08/09/25 10:35 Respiratory Rate 16 08/09/25 10:35 Blood Pressure 206/94 H 08/09/25 10:35 Blood Pressure Mean 131 08/09/25 10:35 Blood Pressure Left Arm 220/131 08/04/25 17:50 Blood Pressure Right Arm 230/133 08/04/25 17:50 Blood Pressure Location Right Arm 08/09/25 10:35 Blood Pressure Position Supine 08/09/25 10:35 O2 Sat by Pulse Oximetry 98 08/09/25 10:35 Oxygen Delivery Method Room Air 08/09/25 10:35 Height 5 ft 8 in 08/04/25 17:50 Weight 66.3 kg 08/04/25 17:50 Telemetry Type Remote Telemetry 08/09/25 07:00 Telemetry Monitoring Continues 08/09/25 01:00 Telemetry Heart Rate 56 L 08/09/25 07:00 Telemetry SPO2 97 08/09/25 07:00 EKG PA Interval 0.19 08/09/25 07:00 EKG QRS Interval 0.08 08/09/25 07:00 Telemetry Strip Reading Bradycardia 08/09/25 07:00 Imaging: EXAM: HEAD/BRAIN CTA WITHOUT AND WITH IV CONTRAST. PRE AND POST CONTRAST SCANS WERE PERFORMED. HISTORY: Transient ischemic attack TECHNIQUE: CTA of the head/brain prior to and following IV contrast administration. CT dose reduction techniques performed: Yes. Coronal and sagittal reconstructions were performed. MIP/VR/3-D images were provided. COMPARISON: CT head 04/19/2025 FINDINGS: Noncontrast CT head: No acute infarction, hemorrhage, or mass lesion.No skull fracture. Paranasal sinuses and mastoid aircells clear. CTA head: Intracranial internal carotid arteries, anterior cerebral arteries, and middle cerebral arteries are within normal limits. Intracranial vertebral arteries, b asilar artery, and posterior cerebral arteries are within normal limits. No aneurysm, vascular malformation, or high grade stenosis/occlusion. Impression: No acute intracranial abnormality. No high-grade stenosis or occlusion in the head. If ongoing concern for acute intracranial pathology, brain MRI would be recommended. EXAM: NECK CTA WITHOUT AND WITH CONTRAST HISTORY: Transient ischemic attack TECHNIQUE: CTA of the neck without and with IV contrast administration. CT dose reduction techniques performed: Yes. Coronal and sagittal reconstructions were performed. MIP/VR/3-D images were provided. All reported proximal ICA stenoses are calculated based upon the distal ICA diameter (NASCET criteria). COMPARISON: None FINDINGS: Common carotid arteries are patent. 55% stenosis of the proximal right cervical internal carotid artery due to calcified plaque. Left internal carotid artery patent. Bilateral vertebral arteries are patent. No aneurysm or dissection. IMPRESSION: Moderate stenosis of the proximal right cervical internal carotid artery. EXAM: CHEST RADIOGRAPH; SINGLE VIEW HISTORY: Dizziness COMPARISON: Chest radiograph 04/19/2025. FINDINGS/IMPRESSION: Left anterior chest wall cardiac pacer. Trachea is midline. Cardiomediastinal silhouette is unchanged. Atherosclerosis of the aorta. Sternotomy wires. Atelectasis in the left lung base. No pneumothorax or large pleural effusions. Degenerative changes. Scoliosis. Remote right-sided fractures. Lab Results Last 24 Hours: 08/09/25 05:06 WBC 6.81 RBC 3.07 L Hgb 10.7 L Hct 31.4 L MCV 102.3 H MCH 34.9 H MCHC 34.1 RDW Coeff of Josy 12.4 Plt Count 238 Immature Gran % (Auto) 0.3 Neut % (Auto) 51.2 Lymph % (Auto) 30.7 [place] % (Auto) 10.3 H Eos % (Auto) 6.9 Baso % (Auto) 0.6 Neut # (Auto) 3.5 Lymph # (Auto) 2.1 [place] # (Auto) 0.7 Eos # (Auto) 0.5 Baso # (Auto) 0.0 Immature Gran # (Auto) 0.0 Sodium 133.2 L Potassium 3.77 Chloride 103.3 Carbon Dioxide 27.7 Anion Gap 5.97 BUN 17.5 Creatinine 0.83 Estimated GFR (MDRD) 91.00 BUN/Creatinine Ratio 21.08 Glucose 101.1 Calcium 8.50 Total Bilirubin 0.30 AST 27.4 ALT 15.8 Alkaline Phosphatase 56.7 Total Protein 6.09 L Albumin 3.56 Globulin 2.53 Albumin/Globulin Ratio 1.40 Discharge Instructions Discharge Planning: Discharge Planning > [address] Leslie Cuenca. Discharge Medications: Medications at Discharge (Home Meds & RX) furosemide 20 mg tablet 20 mg PO DAILY #90 tabs 08/16/24 potassium chloride 10 mEq tablet,extended release 10 meq PO DAILY #90 tabs 11/03/24 meclizine 25 mg chewable tablet (Antivert) 25 mg PO BID PRN dizziness #14 tabs 12/31/24 alprazolam 0.5 mg tablet 0.5 mg PO BID #60 tabs 07/07/25 clotrimazole 1 % topical cream 1 applic topical BID 2 weeks #30 grams 07/07/25 aspirin 81 mg chewable tablet 81 mg PO DAILY #90 tabs 08/02/25 atorvastatin 20 mg tablet 20 mg PO DAILY #90 tabs 08/02/25 diltiazem HCl 60 mg tablet 60 mg PO 2XD #180 tabs 08/02/25 levothyroxine 50 mcg tablet 50 mcg PO QDAC #90 tabs 08/02/25 triamcinolone acetonide 0.1 % topical cream 1 applic topical BID PRN skin rash 2 weeks #80 grams 08/02/25 venlafaxine 150 mg capsule,extended release 24 hr 150 mg PO DAILY #90 caps 08/02/25 doxazosin 2 mg tablet (Cardura) 2 mg PO DAILY #30 tabs 08/09/25 folic acid 1 mg tablet 1 mg PO DAILY #30 tabs 08/09/25 hydralazine 10 mg tablet 10 mg PO Q8H #90 tabs 08/09/25 losartan 100 mg tablet 100 mg PO DAILY #30 tabs 08/09/25 multivitamin with folic acid 400 mcg tablet (Tab-A-Zuleyka) 1 tab PO DAILY #30 tabs 08/09/25 thiamine HCl (vitamin B1) 100 mg tablet (Vitamin B-1) 100 mg PO DAILY #30 tabs 08/09/25 Discharge Plan Discharge Discharge Orders: Discharge Patient (ONCE); Ordered 08/10/25 Ordered By: PEACE SERRA Activity Restrictions/Additional Instructions: DISCHARGE TO SNF FOR SKILLED REHAB ACTIVITY: PT, OT, and ST : EVAL AND TREAT FALL PRECAUTIONS DX: SYNCOPAL EPISODE, HYPONATREMIA, HYPERTENSION ECHO STILL PENDING, CO PCP TO FOLLOW RESULTS DIET: HEART HEALTHY CONTINUE FOLLOW UP WITH NEUROLOGY OUTPATIENT BLOOD PRESSURE MEDICATIONS - HYDRALAZINE TID ADDED DOXAZOSIN DOSE DECREASED DUE TO MILD ORTHOSTATIC HYPOTENSIONCARROLL RECOMMENDED Instructions: Rib Fracture (ED), Hyponatremia (ED), Hypertensive Crisis (ED), Dizziness (ED) Patient Disposition: TRANSFER SNF Prescriptions: New hydralazine 10 mg Tablet 10 mg PO Q8H Qty: 90 0RF thiamine HCl (vitamin B1) [Vitamin B-1] 100 mg Tablet 100 mg PO DAILY Qty: 30 0RF folic acid 1 mg Tablet 1 mg PO DAILY Qty: 30 0RF losartan 100 mg Tablet 100 mg PO DAILY Qty: 30 0RF multivitamin with folic acid [Tab-A-Zuleyka] 400 mcg Tablet 1 tab PO DAILY Qty: 30 0RF doxazosin [Cardura] 2 mg tablet 2 mg PO DAILY Qty: 30 0RF Continued furosemide 20 mg tablet 20 mg PO DAILY Qty: 90 0RF potassium chloride 10 mEq tablet extended release 10 meq PO DAILY Qty: 90 1RF meclizine [Antivert] 25 mg tablet,chewable 25 mg PO BID PRN (Reason: dizziness) Qty: 14 0RF triamcinolone acetonide 0.1 % cream 1 applic topical BID PRN (Reason: skin rash) 14 Days Qty: 80 1RF aspirin 81 mg tablet,chewable 81 mg PO DAILY Qty: 90 3RF atorvastatin 20 mg tablet 20 mg PO DAILY Qty: 90 0RF diltiazem HCl 60 mg tablet 60 mg PO 2XD Qty: 180 0RF levothyroxine 50 mcg tablet 50 mcg PO QDAC Qty: 90 0RF venlafaxine 150 mg capsule,extended release 24hr 150 mg PO DAILY Qty: 90 1RF clotrimazole 1 % cream 1 applic topical BID 14 Days Qty: 30 1RF alprazolam 0.5 mg tablet 0.5 mg PO BID Qty: 60 0RF Discontinued doxazosin 4 mg tablet 4 mg PO DAILY Qty: 30 2RF losartan-hydrochlorothiazide 50-12.5 mg tablet 1 tab PO DAILY Qty: 90 0RF Did you review [place] [employer] for ALL controlled substances?: Not Applicable Discussed opioids are addictive and Narcan is available by prescription or from pharmacy.: No Condition: Stable Referrals: MARISABEL GRAMAJO APRN [NURSE PRACTITIONER, INTERNAL MEDICINE] - 08/15/25 9:40 am Referral Note:
[2025-08-09] MEDS: DULCOLAX PO ONE (13:16)
[2025-08-09] MEDS: MIRALAX PO PRN (15:47)
--- NOTE | 2025-08-09 17:50 | PCM.PROG ---
Date/Time Seen Date Seen by Provider: 08/09/25 Time Seen by Provider: 08:30 Provider Provider: PEACE SERRA [facility]C, [facility] Chief Complaint Chief Complaint: TIA, HTN, HYPONATREMIA Subjective Subjective: Patient has no complaints today. Agreeable to go to [place]. Arrangements have been made. MMSE of today. Objective Appearance: Positive Well-nourished, No Apparent Distress and Alert and Oriented x3 (is alert and oriented but has difficulty remembering and recalling certain situations) Chest/Lungs: Positive Symmetrical With Equal Breath Sounds, Clear to Auscultation Bilaterally and Good Air Movement all 4 Lung Fuchs; Negative Rales, Rhonci or Wheezes Heart: Positive RRR; Negative Murmur, Irregular Rhythm, Tachycardia or Bracycardia GI/: Positive Soft, Nontender and Bowel Sounds Normal Neurological: Positive Sensation Intact, Motor intact, Cranial Nerves Intact, Alert and Oriented Vital Signs Vital Signs: Vital Signs: Last 24 Hours 08/08/25 18:00 08/08/25 19:00 08/08/25 20:00 Temperature 97.2 F L Temperature Source Temporal Artery Scan Pulse Rate 68 Respiratory Rate Blood Pressure 150/83 H Blood Pressure Mean 105 Blood Pressure Location Left Arm Blood Pressure Position Supine O2 Sat by Pulse Oximetry 96 Oxygen Delivery Method Room Air Room Air Telemetry Type Remote Telemetry Telemetry Monitoring Continues Telemetry Heart Rate 65 Telemetry SPO2 EKG DC Interval 0.19 EKG QRS Interval 0.09 Telemetry Strip Reading SR W/ INT PACING 08/08/25 21:00 08/08/25 21:20 08/09/25 01:00 Temperature 97.4 F L 97.4 F L Temperature Source Tympanic Pulse Rate 67 67 Respiratory Rate 22 H 22 H Blood Pressure 178/80 H 178/80 H Blood Pressure Mean 112 Blood Pressure Location Right Arm Blood Pressure Position Supine O2 Sat by Pulse Oximetry 97 Oxygen Delivery Method Room Air Telemetry Type Remote Telemetry Telemetry Monitoring Continues Telemetry Heart Rate 75 Telemetry SPO2 EKG DC Interval EKG QRS Interval 0.06 Telemetry Strip Reading Atrial Paced 08/09/25 01:59 08/09/25 05:07 08/09/25 07:00 Temperature 97.3 F L 98 F Temperature Source Tympanic Temporal Artery Scan Pulse Rate 73 62 Respiratory Rate 20 18 Blood Pressure 170/72 H 180/84 H Blood Pressure Mean 104 116 Blood Pressure Location Right Arm Left Arm Blood Pressure Position Supine Supine O2 Sat by Pulse Oximetry 98 96 Oxygen Delivery Method Room Air Room Air Telemetry Type Remote Telemetry Telemetry Monitoring Telemetry Heart Rate 56 L Telemetry SPO2 97 EKG DC Interval 0.19 EKG QRS Interval 0.08 Telemetry Strip Reading Bradycardia 08/09/25 07:15 08/09/25 08:00 08/09/25 10:35 Temperature 97 F L Temperature Source Temporal Artery Scan Pulse Rate 62 64 Respiratory Rate 16 Blood Pressure 166/84 H 206/94 H Blood Pressure Mean 111 131 Blood Pressure Location Right Arm Right Arm Blood Pressure Position Sitting Supine O2 Sat by Pulse Oximetry 98 Oxygen Delivery Method Room Air Room Air Room Air Telemetry Type Telemetry Monitoring Telemetry Heart Rate Telemetry SPO2 EKG DC Interval EKG QRS Interval Telemetry Strip Reading 08/09/25 11:20 08/09/25 12:41 08/09/25 13:00 Temperature Temperature Source Pulse Rate Respiratory Rate Blood Pressure 180/84 H 124/68 Blood Pressure Mean 116 86 Blood Pressure Location Right Arm Right Arm Blood Pressure Position Supine Sitting O2 Sat by Pulse Oximetry Oxygen Delivery Method Room Air Room Air Telemetry Type Remote Telemetry Telemetry Monitoring Continues Telemetry Heart Rate 76 Telemetry SPO2 97 EKG DC Interval 0.19 EKG QRS Interval 0.08 Telemetry Strip Reading NSR 08/09/25 14:00 08/09/25 14:00 08/09/25 14:03 Temperature 96.9 F L Temperature Source Temporal Artery Scan Pulse Rate 62 61 58 L Respiratory Rate 16 Blood Pressure 132/62 124/60 124/60 Blood Pressure Mean 81 Blood Pressure Location Right Arm Right Arm Right Arm Blood Pressure Position Supine Sitting Sitting O2 Sat by Pulse Oximetry 97 Oxygen Delivery Method Room Air Telemetry Type Telemetry Monitoring Telemetry Heart Rate Telemetry SPO2 EKG DC Interval EKG QRS Interval Telemetry Strip Reading 08/09/25 14:06 Temperature Temperature Source Pulse Rate 66 Respiratory Rate Blood Pressure 92/52 L Blood Pressure Mean Blood Pressure Location Right Arm Blood Pressure Position Standing O2 Sat by Pulse Oximetry Oxygen Delivery Method Telemetry Type Telemetry Monitoring Telemetry Heart Rate Telemetry SPO2 EKG DC Interval EKG QRS Interval Telemetry Strip Reading Lab Results Lab Results: Lab Results: Last 24 Hours 08/09/25 05:06 WBC 6.81 RBC 3.07 L Hgb 10.7 L Hct 31.4 L MCV 102.3 H MCH 34.9 H MCHC 34.1 RDW Coeff of Josy 12.4 Plt Count 238 Immature Gran % (Auto) 0.3 Neut % (Auto) 51.2 Lymph % (Auto) 30.7 [place] % (Auto) 10.3 H Eos % (Auto) 6.9 Baso % (Auto) 0.6 Neut # (Auto) 3.5 Lymph # (Auto) 2.1 [place] # (Auto) 0.7 Eos # (Auto) 0.5 Baso # (Auto) 0.0 Immature Gran # (Auto) 0.0 Sodium 133.2 L Potassium 3.77 Chloride 103.3 Carbon Dioxide 27.7 Anion Gap 5.97 BUN 17.5 Creatinine 0.83 Estimated GFR (MDRD) 91.00 BUN/Creatinine Ratio 21.08 Glucose 101.1 Calcium 8.50 Total Bilirubin 0.30 AST 27.4 ALT 15.8 Alkaline Phosphatase 56.7 Total Protein 6.09 L Albumin 3.56 Globulin 2.53 Albumin/Globulin Ratio 1.40 Additional Comments Additional Comments: I have independently reviewed and interpreted the labs/EKGs/imaging ordered during this hospital stay. I have reviewed outside records that are available in our EMR that pertain to medical stay including imaging/notes/labs from previous visits. Active Medications Active Medications: Medications Generic Name Dose Route Start Last Admin Trade Name Freq PRN Reason Stop Dose Admin Acetaminophen 650 mg 08/04/25 16:32 Acetaminophen 325 Mg Tablet PO Q4H PRN Mild Pain Alprazolam 0.5 mg 08/04/25 21:00 08/09/25 09:03 Alprazolam 0.5 Mg Tablet PO 0.5 mg BID DAVION Administration Aspirin 81 mg 08/05/25 07:30 08/09/25 07:48 Aspirin 81 Mg Tab.Chew PO 81 mg DAILYWM2 DAVION Administration Atorvastatin Calcium 20 mg 08/05/25 09:00 08/09/25 08:59 Atorvastatin Calcium 20 Mg Tablet PO 20 mg DAILY DAVION Administration Diltiazem HCl 60 mg 08/04/25 21:00 08/09/25 08:58 Diltiazem Hcl 60 Mg Tablet PO 60 mg 2XD DAVION Administration Doxazosin Mesylate 4 mg 08/05/25 09:00 08/08/25 08:16 Doxazosin Mesylate 2 Mg Tablet PO 4 mg On Hold: 08/08/25 16:20 DAILY DAVION Administration Folic Acid 1 mg 08/04/25 17:00 08/09/25 09:00 Folic Acid 1 Mg Tablet PO 1 mg DAILY DAVION Administration Hydralazine HCl 10 mg 08/04/25 16:47 08/09/25 11:31 Hydralazine Hcl 20 Mg/Ml Sdv IVP 10 mg Q6H PRN Administration Hypertension Hydralazine HCl 10 mg 08/08/25 09:00 08/09/25 17:05 Hydralazine Hcl 10 Mg Tablet PO 10 mg Q8H DAVION Administration Hydrocortisone 1 applic 08/07/25 16:25 08/07/25 16:37 Hydrocortisone 28 Gm Cream TP 1 applic BID PRN Administration Rash Ibuprofen 600 mg 08/05/25 10:44 08/09/25 07:48 Ibuprofen 600 Mg Tablet PO 600 mg Q6H PRN Administration Mild Pain Levothyroxine Sodium 50 mcg 08/05/25 06:30 08/09/25 05:30 Levothyroxine Sodium 50 Mcg Tablet PO 50 mcg 0630 DAVION Administration Lorazepam 1 mg 08/04/25 16:47 08/05/25 21:46 Lorazepam Inj 2 Mg/Ml Vial IVP 1 mg Q2HR PRN Administration Withdrawal Lorazepam 2 mg 08/04/25 16:47 Lorazepam Inj 2 Mg/Ml Vial IVP Q1HR PRN Withdrawal Lorazepam 2 mg 08/04/25 16:47 Lorazepam Inj 2 Mg/Ml Vial IVP Q15MIN PRN Withdrawal Lorazepam 1 mg 08/04/25 16:47 Lorazepam 1 Mg Tablet PO Q2HR PRN Withdrawal Lorazepam 2 mg 08/04/25 16:47 Lorazepam 1 Mg Tablet PO Q1HR PRN Withdrawal Losartan Potassium 100 mg 08/05/25 09:00 08/09/25 08:59 Losartan Potassium 100 Mg Tablet PO 100 mg DAILY DAVION Administration Multivitamins 1 tab 08/04/25 17:00 08/09/25 08:58 Multivitamin 1 Tab PO 1 tab DAILY DAVION Administration Ondansetron HCl 4 mg 08/04/25 16:47 Ondansetron Hcl/Pf 4 Mg/2 Ml Sdv IVP Q6H PRN Nausea / Vomiting Polyethylene Glycol 17 gm 08/09/25 15:21 08/09/25 15:47 Polyethylene Glycol 17 Gm Powd.Pack PO 17 gm DAILY PRN Administration Laxative Effect Sodium Chloride 1 gm 08/07/25 09:00 08/09/25 15:47 Sodium Chloride 1 Gm Tablet PO 1 gm TID DAVION Administration Thiamine HCl 100 mg 08/04/25 17:00 08/09/25 08:59 Vitamin B-1 100 Mg Tablet PO 100 mg DAILY DAVION Administration Venlafaxine HCl 150 mg 08/05/25 09:00 08/09/25 08:59 Venlafaxine Hcl 75 Mg Cap.Er.24h PO 150 mg DAILY DAVION Administration Assessment (1) Cognitive communication deficit: Status: Acute Code(s): R41.841 - Cognitive communication deficit SNOMED Code(s): 759383443084114 Plan Plan: 1. Syncopal episode - imaging negative, has known right sided carotid stenosis, troponins negative, UA negative, no labs indicative of hepatic encephalopathy, unable to complete MRI due to pacemaker, avoid neurologically altering agents, cont tele 2. Hyponatremia - initially 129, slowly improving, likely due to alcohol use and causing worsening altered mental status, fluids dc'd, cont salt tabs 3. Memory impairment, acute on chronic - Worsened upon admission with confusion and hallucinations, had been seeing neuro outpatient for ongoing memory issues. Patient very confused over the weekend, improved today, could be due to alcoholism/withdrawal symptoms (last drink reportedly 08/03) vs hypertensive encephalopathy. Near baseline today per daughter at bedside. Discussing discharge plans with family at this time, would benefit from speech eval from cognitive stand point. Would recommend against driving at this point. 4. HTN - chronic, continue home medications, hydralazine TID started 5. Anemia, chronic - monitor 6. Alcohol abuse - [facility] protocol, MVI, thiamine, and folic acid ordered DVT Prophylaxis: Ambulation Dispo: Has now been accepted at [place] and patient is agreeable but skilled nursing declines taking patient until he has a bowel movement, therefore his discharge is delayed. Review Statement Review Statement: I have personally discussed and reviewed the patient's visit/currently labs/imaging/decision making with Dr. Cuenca, my supervising attending. Greater that 50 minutes spent with patient, 50% of the time spent with this patient was devoted to counseling and coordination of care.
[2025-08-09] MEDS: CITRATE OF MAGNESIA PO PRN (18:47)
[2025-08-10 10:00] VITALS: BP 153/81; PULSE 75; RESP 16; TEMP 96.7
== END 2025-08-10 11:26 | DRG 641 ==
LOC: MEDSURG B 13:23 → ED 13:23 → MEDSURG B 18:00
PROVIDERS: ADMIT Hospitalist; ATTEND Physician Assistant